=== PATIENT | male | born 2000 | race Caucasian/White ===

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

== ENCOUNTER 2020-01-20 18:17 | Emergency (ER) | payer OTHER ==
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
[2020-01-20 19:58] LABS: Amphetamine Screen,Urine Not Detected (NotDetected); Barbiturate Screen,Urine Not Detected (NotDetected); Benzodiazepines Screen,Urine Detected (NotDetected); Cocaine Screen,Urine Not Detected (NotDetected); Methadone Screen, Urine Not Detected (NotDetected); Opiate Screen,Urine Not Detected (NotDetected); Oxycodone Screen, Urine Not Detected (NotDetected); Phencyclidine Screen,Urine Not Detected (NotDetected); Tricyclic Antidepressant,Urine Not Detected (NotDetected); Urn Cannabinoid Scrn Detected (NotDetected)
[2020-01-20 22:45] VITALS: BP 128/80; PULSE 54; RESP 18; TEMP 97.7
== END 2020-01-20 22:45 | disposition home or self-care (01) ==
LOC: EC 18:17
DX: R46.89 Other symptoms and signs involving appearance and behavior (principal); H91.90 Unspecified hearing loss, unspecified ear; F17.200 Nicotine dependence, unspecified, uncomplicated
CPT/HCPCS: 80306; 82075; 99285

== ENCOUNTER 2020-01-24 21:06 | Inpatient (IN) | payer MEDICARE, OTHER ==
[2020-01-24 22:34] LABS: Cocaine Screen,Urine Not Detected (NotDetected); Phencyclidine Screen,Urine Not Detected (NotDetected); Urn Cannabinoid Scrn Detected (NotDetected)
[2020-01-24 22:35] LABS: Amphetamine Screen,Urine Not Detected (NotDetected); Barbiturate Screen,Urine Not Detected (NotDetected); Benzodiazepines Screen,Urine Not Detected (NotDetected); Methadone Screen, Urine Not Detected (NotDetected); Opiate Screen,Urine Not Detected (NotDetected); Oxycodone Screen, Urine Not Detected (NotDetected); Tricyclic Antidepressant,Urine Not Detected (NotDetected)
[2020-01-24] MEDS ORDERED: SODIUM CHLORIDE 0.9% 1,000 ML IV STA (22:58)
--- NOTE | 2020-01-24 23:28 | ED ---
Altered Mental Status HPI - General Chief Complaint: Psychiatric Symptoms Stated Complaint: EPS Eval Time Seen by Provider: 01/24/20 22:31 Source: patient, RN notes reviewed, old records reviewed Mode of arrival: ambulatory Limitations: language barrier - History of Present Illness Initial Comments: This is a patient is 19 years old poor strain secondary to underlying being deaf O patient is able to make conversation and respond, patient has some psychiatric illness psychiatric history and has had a for admission for prior psychiatric evaluation. Concern by family today the patient may have some underlying neurological condition causing some of his problems this patient to be escalating. Patient isn't doing some self abuse does have some swelling to his head, recent evaluation in the ER where he was discharged MD Complaint: altered mental status, confusion, other (Inappropriate behavior) -: unknown Severity: moderate Consistency of Symptoms: waxing and waning, getting worse Context: drug abuse, history of similar presentation Associated Symptoms: denies other symptoms - Related Data Home Medications Medication Instructions Recorded Confirmed No Known Home Medications 08/09/18 01/20/20 Allergies Allergy/AdvReac Type Severity Reaction Status Date / Time No Known Allergies Allergy Verified 01/24/20 21:14 Review of Systems ROS Statement: Those systems with pertinent positive or pertinent negative responses have been documented in the HPI. ROS Other: All systems not noted in ROS Statement are negative. Past Medical History Additional Past Medical History / Comment(s): deaf History of Any Multi-Drug Resistant Organisms: None Reported Past Surgical History: No Surgical Hx Reported Past Anesthesia/Blood Transfusion Reactions: No Reported Reaction Past Psychological History: Depression Smoking Status: Current every day smoker Past Alcohol Use History: None Reported Past Drug Use History: Marijuana - Past Family History Mother Family Medical History: Hearing Disorder / Deafness Father Additional Family Medical History / Comment(s): used marijuana General Exam Limitations: language barrier General appearance: alert, in no apparent distress Head exam: Present: normocephalic, normal inspection. Absent: atraumatic (Patient does have hematoma to forehead) Eye exam: Present: normal appearance, PERRL, EOMI. Absent: scleral icterus, conjunctival injection, periorbital swelling ENT exam: Present: normal exam, mucous membranes moist Neck exam: Present: normal inspection. Absent: tenderness, meningismus, lymphadenopathy Respiratory exam: Present: normal lung sounds bilaterally. Absent: respiratory distress, wheezes, rales, rhonchi, stridor Cardiovascular Exam: Present: regular rate, normal rhythm, normal heart sounds. Absent: systolic murmur, diastolic murmur, rubs, gallop, clicks GI/Abdominal exam: Present: soft, normal bowel sounds. Absent: distended, tenderness, guarding, rebound, rigid Extremities exam: Present: normal inspection, full ROM, normal capillary refill. Absent: tenderness, pedal edema, joint swelling, calf tenderness Back exam: Present: normal inspection Neurological exam: Present: alert, oriented X3, CN II-XII intact Psychiatric exam: Present: normal affect, normal mood Skin exam: Present: warm, dry, intact, normal color. Absent: rash Course Vital Signs 01/24/20 21:06 Temperature 98.4 F Pulse Rate 84 Respiratory 16 Rate Blood Pressure 132/87 O2 Sat by Pulse 100 Oximetry - Reevaluation(s) Reevaluation #1: 01/25/20 00:32 Medical record is reviewed Reevaluation #2: 01/25/20 00:32 Prior ER visit and psychiatric evaluations are reviewed Reevaluation #3: 01/25/20 00:32 Patient appears to be appropriate here in the ER, family informed of results Medical Decision Making - Medical Decision Making 19-year-old male be evaluated, patient be admitted for underlying psychiatric versus neurologic condition causing abnormal behavior. - Lab Data Result diagrams: 01/24/20 23:23 01/24/20 23:23 Lab Results 01/24/20 01/24/20 01/24/20 Range/Units 22:10 23:23 23:23 WBC 14.8 H (4.0-11.0) k/uL RBC 5.38 (4.30-5.90) m/uL Hgb 15.0 (13.0-17.5) gm/dL Hct 45.4 (39.0-53.0) % MCV 84.3 (80.0-100.0) fL MCH 27.9 (25.0-35.0) pg MCHC 33.1 (31.0-37.0) g/dL RDW 12.7 (11.5-15.5) % Plt Count 218 (150-450) k/uL Neutrophils % 79 % Lymphocytes % 11 % Monocytes % 7 % Eosinophils % 1 % Basophils % 0 % Neutrophils # 11.8 H (1.3-7.7) k/uL Lymphocytes # 1.7 (1.0-4.8) k/uL Monocytes # 1.1 H (0-1.0) k/uL Eosinophils # 0.1 (0-0.7) k/uL Basophils # 0.1 (0-0.2) k/uL Sodium 139 (137-145) mmol/L Potassium 4.4 (3.5-5.1) mmol/L Chloride 105 (98-107) mmol/L Carbon Dioxide 29 (22-30) mmol/L Anion Gap 5 mmol/L BUN 17 (9-20) mg/dL Creatinine 1.09 (0.66-1.25) mg/dL Est GFR (CKD-EPI)AfAm >90 (>60 ml/min/1.73 sqM) Est GFR (CKD-EPI)NonAf >90 (>60 ml/min/1.73 sqM) Glucose 94 (74-99) mg/dL Calcium 10.2 (8.4-10.2) mg/dL Phosphorus 3.5 (2.5-4.5) mg/dL Magnesium 2.1 (1.6-2.3) mg/dL Total Bilirubin 0.7 (0.2-1.3) mg/dL AST 38 (17-59) U/L ALT 17 (4-49) U/L Alkaline Phosphatase 77 (38-126) U/L Creatine Kinase 440 H (55-170) U/L Troponin I (0.000-0.034) ng/mL Total Protein 7.3 (6.3-8.2) g/dL Albumin 5.0 (3.5-5.0) g/dL TSH 0.674 (0.465-4.680) mIU/L Urine Opiates Screen Not Detected (NotDetected) Ur Oxycodone Screen Not Detected (NotDetected) Urine Methadone Screen Not Detected (NotDetected) Ur Propoxyphene Screen Not Detected (NotDetected) Ur Barbiturates Screen Not Detected (NotDetected) U Tricyclic Antidepress Not Detected (NotDetected) Ur Phencyclidine Scrn Not Detected (NotDetected) Ur Amphetamines Screen Not Detected (NotDetected) U Methamphetamines Scrn Not Detected (NotDetected) U Benzodiazepines Scrn Not Detected (NotDetected) Urine Cocaine Screen Not Detected (NotDetected) U Marijuana (THC) Screen Detected H (NotDetected) 01/24/20 Range/Units 23:23 WBC (4.0-11.0) k/uL RBC (4.30-5.90) m/uL Hgb (13.0-17.5) gm/dL Hct (39.0-53.0) % MCV (80.0-100.0) fL MCH (25.0-35.0) pg MCHC (31.0-37.0) g/dL RDW (11.5-15.5) % Plt Count (150-450) k/uL Neutrophils % % Lymphocytes % % Monocytes % % Eosinophils % % Basophils % % Neutrophils # (1.3-7.7) k/uL Lymphocytes # (1.0-4.8) k/uL Monocytes # (0-1.0) k/uL Eosinophils # (0-0.7) k/uL Basophils # (0-0.2) k/uL Sodium (137-145) mmol/L Potassium (3.5-5.1) mmol/L Chloride (98-107) mmol/L Carbon Dioxide (22-30) mmol/L Anion Gap mmol/L BUN (9-20) mg/dL Creatinine (0.66-1.25) mg/dL Est GFR (CKD-EPI)AfAm (>60 ml/min/1.73 sqM) Est GFR (CKD-EPI)NonAf (>60 ml/min/1.73 sqM) Glucose (74-99) mg/dL Calcium (8.4-10.2) mg/dL Phosphorus (2.5-4.5) mg/dL Magnesium (1.6-2.3) mg/dL Total Bilirubin (0.2-1.3) mg/dL AST (17-59) U/L ALT (4-49) U/L Alkaline Phosphatase (38-126) U/L Creatine Kinase (55-170) U/L Troponin I <0.012 (0.000-0.034) ng/mL Total Protein (6.3-8.2) g/dL Albumin (3.5-5.0) g/dL TSH (0.465-4.680) mIU/L Urine Opiates Screen (NotDetected) Ur Oxycodone Screen (NotDetected) Urine Methadone Screen (NotDetected) Ur Propoxyphene Screen (NotDetected) Ur Barbiturates Screen (NotDetected) U Tricyclic Antidepress (NotDetected) Ur Phencyclidine Scrn (NotDetected) Ur Amphetamines Screen (NotDetected) U Methamphetamines Scrn (NotDetected) U Benzodiazepines Scrn (NotDetected) Urine Cocaine Screen (NotDetected) U Marijuana (THC) Screen (NotDetected) - Radiology Data Radiology results: report reviewed (CT brain is negative for acute disease), image reviewed Disposition Clinical Impression: Acute anxiety, Aggressive behavior, Adjustment disorder of adolescence, Altered mental status Disposition: ADMITTED IP TO THIS HOSP Condition: Fair Is patient prescribed a controlled substance at d/c from ED?: No Referrals: Hermila Palacios MD [Primary Care Provider] - 1-2 days
[2020-01-24 23:32] LABS: Basophils # (A) 0.1 k/uL (0-0.2); Basophils % (A) 0 %; Eosinophils # (A) 0.1 k/uL (0-0.7); Eosinophils % (A) 1 %; HCT 45.4 % (39.0-53.0); Lymphocytes # (A) 1.7 k/uL (1.0-4.8); Lymphocytes % (A) 11 %; MCH 27.9 pg (25.0-35.0); MCHC 33.1 g/dL (31.0-37.0); MCV 84.3 fL (80.0-100.0); Mean Platelet Volume 8.6; Monocytes # (A) 1.1 k/uL (0-1.0); Monocytes % (A) 7 %; Neutrophils # (A) 11.8 k/uL (1.3-7.7); Neutrophils % (A) 79 %; Platelet Count 218 k/uL (150-450); RBC 5.38 m/uL (4.30-5.90); RDW 12.7 % (11.5-15.5); WBC 14.8 k/uL (4.0-11.0)
[2020-01-24 23:40] LABS: ALT 17 U/L (4-49); AST 38 U/L (17-59); African American GFR (CKD) >90 (>60 ml/min/1.73 sqM); Alkaline Phosphatase 77 U/L (38-126); Anion Gap 5 mmol/L; Blood Urea Nitrogen 17 mg/dL (9-20); Calcium 10.2 mg/dL (8.4-10.2); Carbon Dioxide 29 mmol/L (22-30); Chloride 105 mmol/L (98-107); Creatine Kinase 440 U/L (55-170); Glucose 94 mg/dL (74-99); Magnesium 2.1 mg/dL (1.6-2.3); Non-African American GFR(CKD) >90 (>60 ml/min/1.73 sqM); Phosphorus 3.5 mg/dL (2.5-4.5); Potassium 4.4 mmol/L (3.5-5.1); Sodium 139 mmol/L (137-145); Total Bilirubin 0.7 mg/dL (0.2-1.3); Total Protein 7.3 g/dL (6.3-8.2)
--- NOTE | 2020-01-25 00:17 | CT ---
EXAMINATION TYPE: CT brain wo con DATE OF EXAM: 01/25/2020 COMPARISON: None HISTORY: Headache CT DLP: 1099.4 mGycm Automated exposure control for dose reduction was used. Ventricles have normal size. There is no mass effect nor midline shift. There is no evidence of intra cranial hemorrhage. Calvarium is intact. There is soft tissue swelling over the right temporal bone w ith probably subcutaneous hematoma. Skull base is intact. IMPRESSION: Normal CT scan of the brain. Subcutaneous hematoma and soft tissue swelling over the right temporal bone.
[2020-01-25] MEDS ORDERED: LORazepam 2 MG/ML INJ IV STA (00:33)
[2020-01-25] MEDS ORDERED: LORazepam 2 MG/ML INJ IV PRN (00:33)
[2020-01-25] MEDS ORDERED: SODIUM CHLORIDE 0.9% 1,000 ML IV ONE (00:33)
[2020-01-25 03:06] LABS: Appearance,Urine Cloudy (Clear); Bilirubin,Urine Negative (Negative); Blood,Urine Negative (Negative); Calcium Oxalate Crystals,Urine Many /hpf; Color,Urine Yellow; Glucose,Urine (UA) Negative (Negative); Ketones,Urine Negative (Negative); Leukocyte Esterase,Urine Negative (Negative); Mucus,Urine Many /hpf; Nitrite,Urine Negative (Negative); Protein,Urine Trace (Negative); RBC,Urine <1 /hpf (0-5); Specific Gravity,Urine 1.033 (1.001-1.035); Urobilinogen,Urine <2.0 mg/dL (<2.0); WBC,Urine 2 /hpf (0-5)
[2020-01-25] MEDS ORDERED: LORazepam 1 MG TAB PO PRN (10:31)
--- NOTE | 2020-01-25 10:57 | P.HPIM ---
History of Present Illness Patient is a very pleasant 19-year-old the male who is deaf was sent in for second evaluation as patient was having some behavioral issues. Patient the was noted to have altered mental status to but when I valid the patient patient is alert oriented 3. Patient also admits to anxiety. Patient denied any fever chills patient had nausea vomiting. All the lab workup is essentially within normal limits and patient had a subacute cutaneous hematoma on the CT. And the soft tissue swelling in the right temporal lobe. Patient did have leukocytosis, but denied any fever chills denied any dysuria denied any cough along with a daniel st x-ray to rule out any pneumonia although E patient doesn't have any pneumonia patient doesn't have any UTI. Patient admitted to hitting his head to the wall because of which he has this swelling and hematoma of the head. Did use marijuana yesterday and does use marijuana on regular basis. Review of Systems REVIEW OF SYSTEMS: CONSTITUTIONAL: No fever, no malaise, no fatigue. HEENT: No recent visual problems or hearing problems. Denied any sore throat. CARDIOVASCULAR: No chest pain, orthopnea, PND, no palpitations, no syncope. PULMONARY: No shortness of breath, no cough, no hemoptysis. GASTROINTESTINAL: No diarrhea, no nausea, no vomiting, no abdominal pain. NEUROLOGICAL: No headaches, no weakness, no numbness. HEMATOLOGICAL: Denies any bleeding or petechiae. GENITOURINARY: Denies any burning micturition, frequency, or urgency. MUSCULOSKELETAL/RHEUMATOLOGICAL: Denies any joint pain, swelling, or any muscle pain. ENDOCRINE: Denies any polyuria or polydipsia. The rest of the 14-point review of systems is negative. Past Medical History Additional Past Medical History / Comment(s): deaf History of Any Multi-Drug Resistant Organisms: None Reported Past Surgical History: No Surgical Hx Reported Past Anesthesia/Blood Transfusion Reactions: No Reported Reaction Past Psychological History: Depression Smoking Status: Current every day smoker Past Alcohol Use History: None Reported Past Drug Use History: Marijuana - Past Family History Mother Family Medical History: Hearing Disorder / Deafness Father Additional Family Medical History / Comment(s): used marijuana Medications and Allergies Home Medications Medication Instructions Recorded Confirmed Type No Known Home Medications 08/09/18 01/25/20 History Allergies Allergy/AdvReac Type Severity Reaction Status Date / Time No Known Allergies Allergy Verified 01/25/20 07:37 Physical Exam Vitals: Vital Signs Temp Pulse Resp BP Pulse Ox 01/25/20 06:30 98.6 F 91 18 126/88 100 01/25/20 03:00 80 18 130/79 97 01/24/20 21:06 98.4 F 84 16 132/87 100 Intake and Output 01/24/20 01/25/20 01/25/20 22:59 06:59 14:59 Other: Weight 65.317 kg PHYSICAL EXAMINATION: GENERAL: The patient is alert and oriented x3, not in any acute distress. Well developed, well nourished. HEENT: Pupils are round and equally reacting to light. EOMI. No scleral icterus. No conjunctival pallor. Normocephalic, atraumatic. No pharyngeal erythema. No thyromegaly. CARDIOVASCULAR: S1 and S2 present. No murmurs, rubs, or gallops. PULMONARY: Chest is clear to auscultation, no wheezing or crackles. ABDOMEN: Soft, nontender, nondistended, normoactive bowel sounds. No palpable organomegaly. MUSCULOSKELETAL: No joint swelling or deformity. EXTREMITIES: No cyanosis, clubbing, or pedal edema. NEUROLOGICAL: Gross neurological examination did not reveal any focal deficits. SKIN: No rashes. Results CBC & Chem 7: 01/24/20 23:23 01/24/20 23:23 Labs: Abnormal Lab Results - Last 24 Hours (Table) 01/24/20 01/24/20 01/24/20 Range/Units 22:10 22:10 23:23 WBC 14.8 H (4.0-11.0) k/uL Neutrophils # 11.8 H (1.3-7.7) k/uL Monocytes # 1.1 H (0-1.0) k/uL Creatine Kinase (55-170) U/L Urine Protein Trace H (Negative) Calcium Oxalate Crystal Many H (None) /hpf Urine Mucus Many H (None) /hpf U Marijuana (THC) Screen Detected H (NotDetected) 01/24/20 Range/Units 23:23 WBC (4.0-11.0) k/uL Neutrophils # (1.3-7.7) k/uL Monocytes # (0-1.0) k/uL Creatine Kinase 440 H (55-170) U/L Urine Protein (Negative) Calcium Oxalate Crystal (None) /hpf Urine Mucus (None) /hpf U Marijuana (THC) Screen (NotDetected) Assessment and Plan Plan: -Behavioral issues, anxiety/agitation: Patient will be evaluated by psychiatric the cleared patient will be discharged if they believe she need to be admitted to psychiatric floor then patient will be admitted to psychiatric floor. Patient is medically stable to be discharged at this time. -leukocytosis reactive without any evidence of infection -Marijuana use Patient will be discharged today if cleared by psychiatric.
--- NOTE | 2020-01-25 10:58 | P.DS ---
Providers Date of admission: 01/25/20 00:34 Attending physician: Evangelista Gilman Consults: 01/25/20 00:33 Consult Physician Routine Consulting Provider: Sixto Ceballos Reason/Comments: ams Do you want consulting provider notified?: Yes Primary care physician: Philip Cleaning [facility] Course: Please of her history of present illness for further details Patient Condition at Discharge: Fair Plan - Discharge Summary New Discharge Prescriptions: No Action No Known Home Medications Discharge Medication List No Known Home Medications 08/09/18 [History] Follow up Appointment(s)/Referral(s): Hermila Palacios MD [Primary Care Provider] - 3 Days Discharge Disposition: HOME SELF-CARE
--- NOTE | 2020-01-25 11:10 | XR ---
EXAMINATION TYPE: XR chest 2V DATE OF EXAM: 01/25/2020 COMPARISON: NONE HISTORY: Cough rule out pneumonia. TECHNIQUE: Frontal and lateral views of the chest are obtained. FINDINGS: There is no focal air space opacity, pleural effusion, or pneumothorax seen. The cardiac silhouette size is within normal limits. The osseous structures are intact. IMPRESSION: No suspicious acute infiltrate is present.
[2020-01-25 15:41] VITALS: RESP 16
--- NOTE | 2020-01-25 17:27 | CONS ---
CONSULTATION REASON FOR CONSULTATION: Altered mental status. HISTORY OF PRESENT ILLNESS: The patient is a 19-year-old single male who was born deaf. He presented to the emergency room for behavior issues. They stated that the patient has an underlying neurological condition causing him to hit his head against the wall and that he has been doing this self-mutilation or self-abusing behavior like he said, "I am doing this half of my life." I talked with the patient, as he was reading lips. However, I was writing most of the questions on a piece of paper and he was able to answer most of the questions. He stated that he has been living with his grandparent and he denied any suicidal or homicidal ideation. He denied any psychotic feature. He stated that he does not get angry, but "I get upset sometimes." He stated that he has been smoking marijuana on a daily basis since age 11 or 13. In addition, he has been drinking beer since age 11. He stated that he was drinking 1 or 2 beers, but for the last couple of years he has been drinking up to a dozen beers every other day. The patient stated that he used to do crack cocaine and Xanax from age 14 until 16. Currently he is in 12th grade at [employer]. He has been in special ed all his life. MEDICAL HISTORY: 1. Hearing impairment. 2. CT of the brain shows subacute cutaneous hematoma, most probably because he was hitting his head against the wall. Also it shows soft tissue swelling on the right temporal lobe. There is leukocytosis. Urine drug screen positive for cannabis. ALLERGIES: There is NO KNOWN DRUG ALLERGY. HOME MEDICATION: No home medication. His vital signs are temperature 98.6, pulse 84, respirations 16, blood pressure 132/87. SUBSTANCE ABUSE HISTORY: As above. BRIEF SOCIAL HISTORY: The patient is very poor historian, so I did not get any information other than he was born deaf and he currently is living with his grandparent and going to [employer] and he is in the 12th grade. MENTAL STATUS EXAMINATION: The patient appears his stated age. He did bleach his hair. He is hard of hearing but was able to read most of the questions written on the paper and answered them. He did attempt to be cooperative. He appears to have fair hygiene and fair grooming. The patient was lying in bed without any agitation and he attempted to be cooperative. His speech was nonspontaneous. There was some dysarthria. Most of his speech is one- or two-word answers. He denied any suicidal or homicidal ideation, intent or plan. He denied having any hallucinations or delusional thinking. There is poverty of his thought content and he is very concrete. His insight and judgment are fair. IMPRESSION: 1. Mood disorder not otherwise specified. 2. Intellectual disability. 3. Polysubstance use disorder, alcohol and cannabis. PLAN: At this time the patient does not meet criteria for inpatient psychiatric admission. I do recommend referring him to [facility] for behavior modification for his behavior and self- mutilation behavior. The patient was counseled to abstain from alcohol, as this does increase his low frustration tolerance and make him more disinhibited. Psychiatry will sign off at this point. SUSANNA / STEPHANIE: [id number] /
[2020-01-25 18:08] VITALS: BP 144/73; PULSE 64; TEMP 98.5
== END 2020-01-25 17:32 | DRG 885 ==
LOC: EC 21:06 → 6NMEDSUR 01-25 00:34
PROVIDERS: ADMIT Hospitalist; ATTEND Hospitalist
DX: F39 Unspecified mood [affective] disorder (principal); F79 Unspecified intellectual disabilities; F43.22 Adjustment disorder with anxiety; H91.90 Unspecified hearing loss, unspecified ear; F32.9 Major depressive disorder, single episode, unspecified; F17.200 Nicotine dependence, unspecified, uncomplicated; Z83.52 Family history of ear disorders; S00.83XA Contusion of other part of head, initial encounter; D72.829 Elevated white blood cell count, unspecified; F12.90 Cannabis use, unspecified, uncomplicated; W22.01XA Walked into wall, initial encounter; Z91.5 Personal history of self-harm
CPT/HCPCS: 36415; 70450; 71046; 80053; 80306; 81001; 82075; 82550; 83735; 84100; 84443; 84484; 85025; 96361; 96374; 99285

== ENCOUNTER 2020-01-25 17:30 | Inpatient (IN) | payer MEDICARE, MEDICAID ==
[2020-01-25] MEDS ORDERED: MAGNESIUM HYDROXIDE 2,400 MG/10 ML CUP PO PRN (17:41)
[2020-01-25] MEDS ORDERED: MAG HYDROX/AL HYDROX/SIMETH 30 ML CUP PO PRN (17:41)
[2020-01-25] MEDS: LORazepam 1 MG TAB PO PRN (19:13)
[2020-01-25] MEDS: ACETAMINOPHEN TAB 325 MG TAB PO PRN (21:00)
[2020-01-26 08:17] LABS: Basophils % (A) 0 %; Eosinophils # (A) 0.2 k/uL (0-0.7); Eosinophils % (A) 2 %; HCT 45.3 % (39.0-53.0); HGB 14.3 gm/dL (13.0-17.5); Lymphocytes # (A) 2.9 k/uL (1.0-4.8); Lymphocytes % (A) 32 %; MCH 27.5 pg (25.0-35.0); MCHC 31.7 g/dL (31.0-37.0); MCV 86.8 fL (80.0-100.0); Mean Platelet Volume 8.4; Monocytes # (A) 0.8 k/uL (0-1.0); Monocytes % (A) 9 %; Neutrophils # (A) 4.8 k/uL (1.3-7.7); Neutrophils % (A) 55 %; Platelet Count 206 k/uL (150-450); RBC 5.21 m/uL (4.30-5.90); RDW 12.9 % (11.5-15.5); WBC 8.9 k/uL (4.0-11.0)
[2020-01-26] MEDS: NICOTINE 14MG/24HR PATCH TRANSDERM SCH (08:28)
[2020-01-26 08:42] LABS: ALT 17 U/L (4-49); AST 31 U/L (17-59); African American GFR (CKD) >90 (>60 ml/min/1.73 sqM); Albumin 4.6 g/dL (3.5-5.0); Alkaline Phosphatase 67 U/L (38-126); Anion Gap 8 mmol/L; Blood Urea Nitrogen 13 mg/dL (9-20); Calcium 9.8 mg/dL (8.4-10.2); Carbon Dioxide 28 mmol/L (22-30); Chloride 107 mmol/L (98-107); Cholesterol 109 mg/dL (<200); Glucose 96 mg/dL (74-99); HDL Cholesterol 50 mg/dL (40-60); LDL Cholesterol,Calculated 44 mg/dL (0-99); Non-African American GFR(CKD) >90 (>60 ml/min/1.73 sqM); Potassium 4.9 mmol/L (3.5-5.1); Sodium 143 mmol/L (137-145); Total Bilirubin 0.7 mg/dL (0.2-1.3); Total Protein 6.9 g/dL (6.3-8.2); Triglycerides 73 mg/dL (<150)
[2020-01-26] MEDS: LORazepam 1 MG TAB PO PRN ×3 (09:55→23:41)
[2020-01-26] MEDS: SERTRALINE 25 MG TAB PO SCH (12:08)
[2020-01-26] MEDS: ARIPiprazole 2 MG TAB PO SCH (12:26)
[2020-01-26 14:21] LABS: Hemoglobin A1C 5.1 % (4.0-6.0)
--- NOTE | 2020-01-26 15:00 | P.HPIM ---
History of Present Illness 19-year-old pleasant male was admitted to my service yesterday for behavioral issues after medically cleared patient was admitted to psychiatric floor and patient is being treated for anxiety. Patient is clinically doing well denied any symptoms of fever chills nausea vomiting abdominal pain dysuria. Patient does have hearing problems and there had an ear surgery when he as a kid. Review of Systems REVIEW OF SYSTEMS: CONSTITUTIONAL: No fever, no malaise, no fatigue. HEENT: No recent visual problems or hearing problems. Denied any sore throat. CARDIOVASCULAR: No chest pain, orthopnea, PND, no palpitations, no syncope. PULMONARY: No shortness of breath, no cough, no hemoptysis. GASTROINTESTINAL: No diarrhea, no nausea, no vomiting, no abdominal pain. NEUROLOGICAL: No headaches, no weakness, no numbness. HEMATOLOGICAL: Denies any bleeding or petechiae. GENITOURINARY: Denies any burning micturition, frequency, or urgency. MUSCULOSKELETAL/RHEUMATOLOGICAL: Denies any joint pain, swelling, or any muscle pain. ENDOCRINE: Denies any polyuria or polydipsia. The rest of the 14-point review of systems is negative. 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(s): Deaf Syringomyelia History of Any Multi-Drug Resistant Organisms: None Reported Past Surgical History: No Surgical Hx Reported Additional Past Surgical History / Comment(s): testicular surgery Past Anesthesia/Blood Transfusion Reactions: No Reported Reaction Past Psychological History: No Psychological Hx Reported Additional Psychological History / Comment(s): Pt denies any depression or mental health problems. He is independent. He lives with his grandparents. Smoking Status: Current every day smoker Past Alcohol Use History: None Reported Past Drug Use History: Marijuana Additional Drug Use History / Comment(s): Pt denies history of heroin and methamphetamine use. - Past Family History Mother Family Medical History: Hearing Disorder / Deafness Father Additional Family Medical History / Comment(s): used marijuana Medications and Allergies Home Medications Medication Instructions Recorded Confirmed Type No Known Home Medications 08/09/18 01/25/20 History Allergies Allergy/AdvReac Type Severity Reaction Status Date / Time No Known Allergies Allergy Verified 01/25/20 19:28 Physical Exam Vitals: Vital Signs Temp Pulse Pulse Resp BP BP Pulse Ox 01/26/20 09:53 98.2 F 65 16 127/87 100 01/25/20 19:14 97.5 F L 56 L 20 126/74 100 Intake and Output 01/25/20 01/26/20 01/26/20 22:59 06:59 14:59 Other: Weight 50.887 kg PHYSICAL EXAMINATION: GENERAL: The patient is alert and oriented x3, not in any acute distress. Well developed, well nourished. HEENT: Pupils are round and equally reacting to light. EOMI. No scleral icterus. No conjunctival pallor. Normocephalic, atraumatic. No pharyngeal erythema. No thyromegaly. CARDIOVASCULAR: S1 and S2 present. No murmurs, rubs, or gallops. PULMONARY: Chest is clear to auscultation, no wheezing or crackles. ABDOMEN: Soft, nontender, nondistended, normoactive bowel sounds. No palpable organomegaly. MUSCULOSKELETAL: No joint swelling or deformity. EXTREMITIES: No cyanosis, clubbing, or pedal edema. NEUROLOGICAL: Gross neurological examination did not reveal any focal deficits. SKIN: No rashes. Results CBC & Chem 7: 01/26/20 07:43 01/26/20 07:43 Assessment and Plan Plan: Assessment and Plan Plan: -Behavioral issues, anxiety/agitation: Management as per primary service -leukocytosis reactive without any evidence of infection were no further intervention is necessary -Marijuana use: Counseling was provided
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
[2020-01-27] MEDS: SERTRALINE 25 MG TAB PO SCH (09:13)
[2020-01-27] MEDS: NICOTINE 14MG/24HR PATCH TRANSDERM SCH (09:13)
[2020-01-27] MEDS: ARIPiprazole 2 MG TAB PO SCH (09:13)
[2020-01-27 13:11] VITALS: BMI 16.4
--- NOTE | 2020-01-27 14:01 | P.PN ---
Progress Note - Text Progress Note Date: 01/27/20 Subjective: Patient was seen today as a cross coverage for Dr. Ramirez. The patient was evaluated, chart reviewed, case discussed with the treatment team. Patient reports good sleep last night, and appetite was reported as "fair ". Patient has has been going to some groups and other unit activities. The patient is compliant with his medications and denies any adverse reactions. And was a started on Zoloft for depression, and Abilify for mood stabilization and psychotic symptoms. He reports tolerating his medication very well and he denies feeling depressed, hopeless, or suicidal. Denies any hallucinations, paranoid ideation, or delusions. Patient was very fixated on discharge and submitted 72 hour notice for discharge yesterday. Patient was educated to discuss discharge plan with his primary team with involvement of his family. All communication with the patient by writing or sometimes he is able to read lips. Objective: Vitals has been reviewed. MENTAL STATUS EVALUATION: Appearance: Appears stated age, fairly groomed, average body built, and no specific features. Gait/ posture: Steady gait, normal arm swinging, no abnormal movements, with relaxed posture. Attitude and Behavior: Superficially cooperative, guarded in answering questions about his symptoms, intermittent eye contact during course of interview. Motor Activity: Normal psychomotor activity. Speech: Not spontaneous. Stuttering Language: Not able to assess Mood: "Fine" Affect: Restricted. Thought process: Slow, probably due to communication problem and may be due to intellectual limitation Association: Not able to assess. Thought content: Denies delusions, denies current suicidal thoughts, denies homicidal thoughts, denies intentions, or plans. Perception: Denies any hallucinations, but as pair family report patient responding to nonexisting people and talking to himself. Alertness: No impairment. Orientation: No major impairment Insight regarding psychiatric condition: Fair Judgment regarding daily activities and social situation: Fair Impulse control: Fair Assessment: Major depressive disorder, recurrent, severe with psychotic features. Rule out intellectual disability. Rule out cannabis use disorder. Rule out alcohol use disorder TREATMENT PLAN/RECOMMENDATIONS: Medical Decision making: The patient presented with suicidal ideation and history of self-harm as per family report. The patient at high risk to hurt himself if he is not in the inpatient setting. The patient's psychiatric symptoms are not stable and he needs further management of psychiatric medications and further planning for discharge. Therefore, inpatient level of care is needed. Continue the patient inpatient for safety. Continue the patient under 15 minutes safe check for safety. Continue treatment of for depression and psychotic symptoms. Psych education regarding his diagnosis, and treatment option. The patient will also be provided with individual therapy, group therapy, substance abuse counseling, gain insight, and coping skills. Consider medical consultation if any acute medical issue arise. Medications: Zoloft 25 mg daily for depression and anxiety symptoms. Abilify 2 mg daily to augment antidepressant and psychotic symptoms. Discharge patient to OUTPATIENT services upon a stabilization
[2020-01-27] MEDS: ACETAMINOPHEN TAB 325 MG TAB PO PRN (16:35)
[2020-01-27] MEDS: LORazepam 1 MG TAB PO PRN (16:35)
[2020-01-28] MEDS: LORazepam 1 MG TAB PO PRN ×2 (02:21→23:23)
[2020-01-28] MEDS: NICOTINE 14MG/24HR PATCH TRANSDERM SCH (08:43)
[2020-01-28] MEDS: SERTRALINE 25 MG TAB PO SCH (08:44)
[2020-01-28] MEDS: ARIPiprazole 2 MG TAB PO SCH (08:45)
--- NOTE | 2020-01-28 09:42 | P.PN ---
Progress Note - Text Progress Note Date: 01/28/20 Interval History: Patient was seen wandering the hallways and was directable and agreeable to speak with publicity writer in the office. Patient reports that he is feeling anxious. He reports a strong desire to be discharged. He is not endorsing any significant symptoms of depression at this time. When exploring reasons for his admission, patient is unable to provide any significant detail or reason for his erratic behavior. When discussing his self harming behavior, patient stated that he does not remember why he did that other than feeling frustrated. He does endorse a significant history of auditory hallucinations which she describes as "hearing everything in the whole world." He does express that he is able to read thoughts at times and that others are able to read his mind. He also endorses significant paranoia. He denies any visual hallucinations.. At this time patient denies any suicidal or homical ideations, intent or plan. Patient denies any auditory, visual hallucinations and denies any paranoia or delusions. Patient reports side effects of his Abilify and Zoloft. He states that he is feeling increasingly anxious and has some "restlessness and jaw movements" from this medication combination. He has otherwise been adherent. Mental Status Exam: General Appearance: Patient appears to be stated age is alert, directable, and cooperative. Patient is wearing a hearing aid. Behavior: Patient is seated without any agitated behavior. Psychomotor activity slightly elevated. Speech: Patient's speech is fluent and nonpressured. Patient speech is slightly slurred due to hearing disability. Mood/Affect: Mood is described as anxious. Affect is somewhat irritable. Suicidality/Homicidality: Patient denies having any suicidal or homicidal ideation intent or plan. Perceptions: Patient endorses auditory hallucinations. He denies any visual hallucinations. Though content/process: Delusions of paranoia, thought broadcasting, and mind reading are evident. Memory and concentration: AOX3, grossly intact for the purposes of this session Judgment and insight: Poor. Assessment Major depressive disorder, recurrent, severe with psychotic features Rule out schizoaffective disorder versus schizophrenia Rule out intellectual disability Rule out cannabis use disorder Rule out alcohol use disorder Plan: -Patient continues to meet criteria for inpatient psychiatric admission for symptom stabilization and safety. Patient has filed this into hour notice for discharge after being converted to formal voluntary. We will explore we will need to review petition and certified. -Medications: Discontinue Abilify due to patient preference/side effects. Start Risperdal 0.25 mg by mouth twice a day for psychosis/mood stabilization. Consider transition to Risperdal Consta as patient is unlikely to be adherent with medications in the outpatient setting. Continue Zoloft 25 mg by mouth daily for depression and anxiety symptoms. -When necessary Ativan and Geodon for agitation/aggression. -NRT - nicotine patch -Discharge patient to outpatient services upon stabilization. -SW on board for discharge planning. Encouraged the patient to participate in milieu.
[2020-01-28] MEDS ORDERED: ZIPRASIDONE 20 MG VIAL IM PRN (11:00)
[2020-01-28] MEDS: risperiDONE 0.25 MG TAB PO SCH (20:31)
--- NOTE | 2020-01-29 09:06 | P.PN ---
Progress Note - Text Progress Note Date: 01/29/20 Interval History: Patient was seen wandering the hallways and was directable and agreeable to speak with service writer advisor in the office. Patient reports that he feels "all right." He is not reporting any significant symptoms of depression or anxiety at this time. He denies any suicidal or homicidal ideation or intention. He reports that he is sleeping well and denies any issues with his appetite. He continues to endorse auditory hallucinations. He reports that he continues to "hear the world." He says that this does not bother him as much anymore. He is not reporting any paranoia or other delusions today. In regards to his medications, he is medication adherent and is not reporting any significant side effects. He denies any restlessness from the Risperdal. Mental Status Exam: General Appearance: Patient appears to be stated age is alert, directable, and cooperative. Patient is wearing a hearing aid. Behavior: Patient is seated without any agitated behavior. Normal psychomotor activity. Speech: Patient's speech is fluent and nonpressured. Patient speech is slightly slurred due to hearing disability. Nonspontaneous. Mood/Affect: Mood is described as all right. Affect is constricted. Suicidality/Homicidality: Patient denies having any suicidal or homicidal ideation intent or plan. Perceptions: Patient endorses auditory hallucinations. He denies any visual hallucinations. Though content/process: Currently linear and logical. Memory and concentration: AOX3, grossly intact for the purposes of this session Judgment and insight: Mildly improving. Assessment Major depressive disorder, recurrent, severe with psychotic features Rule out schizoaffective disorder versus schizophrenia Rule out intellectual disability Rule out cannabis use disorder Rule out alcohol use disorder Plan: -Patient continues to meet criteria for inpatient psychiatric admission for symptom stabilization and safety. Patient has filed this into hour notice for discharge after being converted to formal voluntary. -Medications: Increase Risperdal to 0.75 mg by mouth twice a day for psychosis/mood stabilization. Continue Zoloft 25 mg by mouth daily for depression and anxiety symptoms. -When necessary Ativan and Geodon for agitation/aggression. -NRT - nicotine patch -Discharge patient with outpatient services upon stabilization. -SW on board for discharge planning. Encouraged the patient to participate in milieu.
[2020-01-29] MEDS: NICOTINE 14MG/24HR PATCH TRANSDERM SCH (09:57)
[2020-01-29] MEDS: SERTRALINE 25 MG TAB PO SCH (09:57)
[2020-01-29] MEDS: risperiDONE 0.25 MG TAB PO SCH ×2 (11:14→20:01)
[2020-01-29 14:39] VITALS: TEMP 98.4
[2020-01-30] MEDS: LORazepam 1 MG TAB PO PRN (02:39)
[2020-01-30 02:42] VITALS: BP 137/80; PULSE 72; RESP 16
[2020-01-30] MEDS: SERTRALINE 25 MG TAB PO SCH (09:45)
[2020-01-30] MEDS: NICOTINE 14MG/24HR PATCH TRANSDERM SCH (09:45)
[2020-01-30] MEDS: risperiDONE 0.25 MG TAB PO SCH (09:45)
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
== END 2020-01-30 13:35 | disposition home or self-care (01) | DRG 885 ==
LOC: 3MHU 17:34
PROVIDERS: ADMIT Psychiatry & Neurology Psychiatry; ATTEND Psychiatry & Neurology Psychiatry
DX: F33.3 Major depressive disorder, recurrent, severe with psychotic symptoms (principal); G95.0 Syringomyelia and syringobulbia; R45.851 Suicidal ideations; F79 Unspecified intellectual disabilities; D72.829 Elevated white blood cell count, unspecified; F12.90 Cannabis use, unspecified, uncomplicated; F17.200 Nicotine dependence, unspecified, uncomplicated; F41.0 Panic disorder [episodic paroxysmal anxiety]; H91.90 Unspecified hearing loss, unspecified ear; Z72.89 Other problems related to lifestyle; Z79.899 Other long term (current) drug therapy; Z91.5 Personal history of self-harm; Z71.51 Drug abuse counseling and surveillance of drug abuser; Z83.52 Family history of ear disorders
CPT/HCPCS: 80053; 80061; 83036; 84443; 85025

== ENCOUNTER 2020-03-13 19:42 | Emergency (ER) | payer MEDICARE, OTHER ==
[2020-03-13] MEDS ORDERED: risperiDONE 0.25 MG TAB PO STA (20:19)
[2020-03-13] MEDS ORDERED: SERTRALINE 25 MG TAB PO STA (20:20)
--- NOTE | 2020-03-13 20:27 | ED ---
General Adult HPI - General Chief complaint: Recheck/Abnormal Lab/Rx Stated complaint: Med refill Source: patient Mode of arrival: ambulatory Limitations: no limitations - History of Present Illness Initial comments: Patient is a 19-year-old male who presents to the emergency department with his cousin who states that he is out of his medications. The patient has a history of hearing loss or disorder. He is supposed to be on Risperdal and Zoloft for his bipolar disorder. He has been out of his medications. Cousin states that he has been attempting to call the patient's primary care physician as well as his psychiatrist however he has been unable to find someone that can get him in and refill his prescription at this time. He is concerned because the patient is demonstrating some aggressive behavior without his medications. He called the crisis hotline who recommended that the patient come into the emergency department for refill. He reports that his cousin has been stable since he started medications approximately 2 months ago. The patient also agrees that he feels better when he is on the medications. Denies any current hallucinations. Cousin does not feel that the patient is a threat to himself or others. No other alleviating, precipitating or modifying factors - Related Data Previous Rx's Medication Instructions Recorded Acetaminophen Tab [Tylenol] 650 mg PO Q4HR PRN tab 01/30/20 Nicotine 14Mg/24Hr Patch [Habitrol] 1 patch TRANSDERM DAILY #14 patch 01/30/20 Sertraline [Zoloft] 25 mg PO DAILY #30 tab 01/30/20 risperiDONE [RisperDAL] 0.75 mg PO BID 30 Days tab 01/30/20 Sertraline [Zoloft] 25 mg PO DAILY #30 tablet 03/13/20 risperiDONE [RisperDAL] 0.75 mg PO BID #180 tablet 03/13/20 Allergies Allergy/AdvReac Type Severity Reaction Status Date / Time No Known Allergies Allergy Verified 03/13/20 19:55 Review of Systems ROS Statement: Those systems with pertinent positive or pertinent negative responses have been documented in the HPI. ROS Other: All systems not noted in ROS Statement are negative. 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(s): Deaf Syringomyelia History of Any Multi-Drug Resistant Organisms: None Reported Past Surgical History: No Surgical Hx Reported Additional Past Surgical History / Comment(s): testicular surgery Past Anesthesia/Blood Transfusion Reactions: No Reported Reaction Past Psychological History: No Psychological Hx Reported Smoking Status: Current every day smoker Past Alcohol Use History: None Reported Past Drug Use History: Marijuana - Past Family History Mother Family Medical History: Hearing Disorder / Deafness Father Additional Family Medical History / Comment(s): used marijuana General Exam Limitations: no limitations Course Vital Signs 03/13/20 03/13/20 19:50 20:41 Temperature 98 F 98.5 F Pulse Rate 88 82 Respiratory 18 16 Rate Blood Pressure 122/77 125/78 O2 Sat by Pulse 99 98 Oximetry Medical Decision Making - Medical Decision Making Upon arrival patient is placed into room 29. A thorough history and physical exam was performed. The patient was given a dose of his Risperdal and Zoloft in the emergency room. I will provide the patient with a prescription for a one- month supply. They do have an anticipated appointment next week however the patient is concerned that he will run out of his medications should they have to reschedule his appointment therefore I do write him a month's supply. The patient has any new or worsening symptoms he should return to the emergency department. Patient agreed to this was discharged home in stable condition Disposition Clinical Impression: Major depressive disorder with psychotic features Disposition: HOME SELF-CARE Condition: Stable Instructions (If sedation given, give patient instructions): Medicine Refill (ED) Additional Instructions: Please follow-up with your primary care doctor. Return to the emergency room for any new or worsening symptoms Prescriptions: risperiDONE [RisperDAL] 0.75 mg PO BID #180 tablet Sertraline [Zoloft] 25 mg PO DAILY #30 tablet Is patient prescribed a controlled substance at d/c from ED?: No Referrals: None,Stated [[facility]-2 days Time of Disposition: 20:21
[2020-03-13 20:42] VITALS: BP 125/78; PULSE 82; RESP 16; TEMP 98.5
== END 2020-03-13 20:41 | disposition home or self-care (01) ==
LOC: EC 19:42
DX: Z76.0 Encounter for issue of repeat prescription (principal); F32.3 Major depressive disorder, single episode, severe with psychotic features; F17.200 Nicotine dependence, unspecified, uncomplicated
CPT/HCPCS: 99281

== ENCOUNTER 2020-04-16 19:39 | Emergency (ER) | payer MEDICARE, OTHER ==
[2020-04-16 19:46] VITALS: TEMP 98.9
[2020-04-16 20:58] LABS: Basophils # (A) 0.1 k/uL (0-0.2); Basophils % (A) 1 %; Eosinophils # (A) 0.2 k/uL (0-0.7); Eosinophils % (A) 3 %; HCT 43.9 % (39.0-53.0); HGB 14.9 gm/dL (13.0-17.5); Lymphocytes # (A) 1.6 k/uL (1.0-4.8); Lymphocytes % (A) 18 %; MCH 29.7 pg (25.0-35.0); MCV 87.3 fL (80.0-100.0); Mean Platelet Volume 7.7; Monocytes # (A) 0.5 k/uL (0-1.0); Monocytes % (A) 6 %; Neutrophils # (A) 6.2 k/uL (1.3-7.7); Neutrophils % (A) 72 %; Platelet Count 185 k/uL (150-450); RBC 5.03 m/uL (4.30-5.90); RDW 13.8 % (11.5-15.5); WBC 8.7 k/uL (4.0-11.0)
[2020-04-16 21:08] LABS: ALT 28 U/L (4-49); AST 23 U/L (17-59); African American GFR (CKD) >90 (>60 ml/min/1.73 sqM); Albumin 4.8 g/dL (3.5-5.0); Alkaline Phosphatase 59 U/L (38-126); Anion Gap 6 mmol/L; Blood Urea Nitrogen 17 mg/dL (9-20); Carbon Dioxide 31 mmol/L (22-30); Chloride 101 mmol/L (98-107); Glucose 82 mg/dL (74-99); Magnesium 1.8 mg/dL (1.6-2.3); Non-African American GFR(CKD) >90 (>60 ml/min/1.73 sqM); Phosphorus 3.9 mg/dL (2.5-4.5); Potassium 4.5 mmol/L (3.5-5.1); Sodium 138 mmol/L (137-145); Total Bilirubin 0.4 mg/dL (0.2-1.3); Total Protein 7.3 g/dL (6.3-8.2)
[2020-04-16] MEDS ORDERED: MECLIZINE 12.5 MG TAB PO STA (21:55)
--- NOTE | 2020-04-16 22:04 | CT ---
EXAMINATION TYPE: CT brain wo con DATE OF EXAM: 04/16/2020 COMPARISON: 01/25/2020 HISTORY: Dizz[place] CT DLP: 1100.4 mGycm Automated exposure control for dose reduction was used. Ventricles and sulci appear normal. There is no mass effect nor midline shift. There is no sign of in tracranial hemorrhage. Calvarium is intact. There is no evidence of cerebral edema. Skull base is int act. IMPRESSION: Negative unenhanced head CT scan. There is clearing of the right temporal scalp hematoma compared to old exam.
--- NOTE | 2020-04-16 22:58 | ED ---
General Adult HPI - General Chief complaint: Dizziness Stated complaint: Dizziness Time Seen by Provider: 04/16/20 19:53 Source: patient, RN notes reviewed, old records reviewed Mode of arrival: ambulatory Limitations: no limitations - History of Present Illness Initial comments: 19-year-old male patient to ED for dizziness feels as if the room is spinning around him. This began last night. Denies recent falls or trauma. Patient is hard of hearing. Denies headache or any other areas of pain. Denies any other complaints. Systemic: Pt denies fatigue, fever/chills, rash. Pt denies weakness, night sweats, weight loss. Neuro: Pt denies headache, visual disturbances, syncope or pre-syncope. HEENT: Pt denies ocular discharge or irritation, otalgia, rhinorrhea, pharyngitis or notable lymphadenopathy. Cardiopulmonary: Pt denies chest pain, SOB, heart palpitations, dyspnea on exertion. Abdominal/GI: Pt denies abdominal pain, n/v/d. : Pt denies dysuria, burning w/ urination, frequency/urgency. Denies new onset urinary or bowel incontinence. MSK: Pt denies myalgia, loss of strength or function in extremities. Neuro: Pt denies new onset weakness, paresthesias. - Related Data Previous Rx's Medication Instructions Recorded Acetaminophen Tab [Tylenol] 650 mg PO Q4HR PRN tab 01/30/20 Nicotine 14Mg/24Hr Patch [Habitrol] 1 patch TRANSDERM DAILY #14 patch 01/30/20 Sertraline [Zoloft] 25 mg PO DAILY #30 tab 01/30/20 risperiDONE [RisperDAL] 0.75 mg PO BID 30 Days tab 01/30/20 Sertraline [Zoloft] 25 mg PO DAILY #30 tablet 03/13/20 risperiDONE [RisperDAL] 0.75 mg PO BID #180 tablet 03/13/20 Meclizine [Antivert] 25 mg PO Q8HR PRN #20 tab 04/16/20 Allergies Allergy/AdvReac Type Severity Reaction Status Date / Time No Known Allergies Allergy Verified 04/16/20 19:46 Review of Systems ROS Statement: Those systems with pertinent positive or pertinent negative responses have been documented in the HPI. ROS Other: All systems not noted in ROS Statement are negative. 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(s): Deaf Syringomyelia History of Any Multi-Drug Resistant Organisms: None Reported Past Surgical History: No Surgical Hx Reported Additional Past Surgical History / Comment(s): testicular surgery Past Anesthesia/Blood Transfusion Reactions: No Reported Reaction Past Psychological History: No Psychological Hx Reported Smoking Status: Current every day smoker Past Alcohol Use History: None Reported Past Drug Use History: Marijuana - Past Family History Mother Family Medical History: Hearing Disorder / Deafness Father Additional Family Medical History / Comment(s): used marijuana General Exam - General Exam Comments Initial Comments: Constitutional: NAD, AOX3, Pt has pleasant affect. HEENT: NC/AT, trachea midline, neck supple, no lymphadenopathy. External ears appear normal, without discharge. TMs pale graybilaterally. Mucous membranes moist. Eyes PERRLA, EOM intact. There is no scleral icterus. No pallor noted. Cardiopulmonary: RRR, no murmurs, rubs or gallops, no JVD noted. Lungs CTAB in anterior and posterior patel. No peripheral edema. Abdominal exam: Abdomen soft and non-distended. Abdomen non-tender to palpation in all 4 quadrants. Bowel sounds active in LLQ. No hepatosplenomegaly. No ecchymosis Neuro: CN II-XII intact. No nuchal rigidity. No raccon eyes, no ramirez sign, no hemotympanum. No cervical spinal tenderness. MSK: Full active ROM in upper and lower extremities, 5/5 stregnth. Limitations: no limitations Course Vital Signs 04/16/20 19:43 Temperature 98.9 F Pulse Rate 70 Respiratory 18 Rate Blood Pressure 110/72 O2 Sat by Pulse 100 Oximetry Medical Decision Making - Medical Decision Making 19-year-old male patient to ED for evaluation of dizziness. Feels the room is spinning about him. Neurologic exam is intact. Vital signs are stable, afebrile. Abdomen unremarkable. CT brain T spines unremarkable. Symptoms resolved with Antivert. Patient presentation consistent with vertigo. Of discharge the patient follow-up and return precautions. Case discussed with Dr. Ortiz. - Lab Data Result diagrams: 04/16/20 20:40 04/16/20 20:40 Lab Results 04/16/20 04/16/20 Range/Units 20:40 20:40 WBC 8.7 (4.0-11.0) k/uL RBC 5.03 (4.30-5.90) m/uL Hgb 14.9 (13.0-17.5) gm/dL Hct 43.9 (39.0-53.0) % MCV 87.3 (80.0-100.0) fL MCH 29.7 (25.0-35.0) pg MCHC 34.0 (31.0-37.0) g/dL RDW 13.8 (11.5-15.5) % Plt Count 185 (150-450) k/uL MPV 7.7 Neutrophils % 72 % Lymphocytes % 18 % Monocytes % 6 % Eosinophils % 3 % Basophils % 1 % Neutrophils # 6.2 (1.3-7.7) k/uL Lymphocytes # 1.6 (1.0-4.8) k/uL Monocytes # 0.5 (0-1.0) k/uL Eosinophils # 0.2 (0-0.7) k/uL Basophils # 0.1 (0-0.2) k/uL Sodium 138 (137-145) mmol/L Potassium 4.5 (3.5-5.1) mmol/L Chloride 101 (98-107) mmol/L Carbon Dioxide 31 H (22-30) mmol/L Anion Gap 6 mmol/L BUN 17 (9-20) mg/dL Creatinine 0.99 (0.66-1.25) mg/dL Est GFR (CKD-EPI)AfAm >90 (>60 ml/min/1.73 sqM) Est GFR (CKD-EPI)NonAf >90 (>60 ml/min/1.73 sqM) Glucose 82 (74-99) mg/dL Calcium 10.0 (8.4-10.2) mg/dL Phosphorus 3.9 (2.5-4.5) mg/dL Magnesium 1.8 (1.6-2.3) mg/dL Total Bilirubin 0.4 (0.2-1.3) mg/dL AST 23 (17-59) U/L ALT 28 (4-49) U/L Alkaline Phosphatase 59 (38-126) U/L Total Protein 7.3 (6.3-8.2) g/dL Albumin 4.8 (3.5-5.0) g/dL - EKG Data -: EKG Interpreted by Me (and Dr. Ortiz ) EKG Comments: ventricular rate 63, ID interval 194, QRS 98, QT/QTC 392/401. Sinus rhythm with sinus arrhythmia. No significant change from prior. No concern for acute ischemia this time. Disposition Clinical Impression: Vertigo, Dizziness Disposition: HOME SELF-CARE Condition: Stable Instructions (If sedation given, give patient instructions): Dizziness (ED), Vertigo (ED) Additional Instructions: Follow up with PCP tomorrow. May use antivert as needed. Return to ED with any worsening symptoms. Prescriptions: Meclizine [Antivert] 25 mg PO Q8HR PRN #20 tab PRN Reason: Dizziness Is patient prescribed a controlled substance at d/c from ED?: No Referrals: Wing Sanches MD [Primary Care Provider] - 1-2 days
[2020-04-16 23:14] VITALS: BP 126/71; PULSE 80; RESP 16
== END 2020-04-16 23:14 | disposition home or self-care (01) ==
LOC: SUPCPDRO 19:39 → EC 19:39
DX: R42 Dizziness and giddiness (principal); H91.90 Unspecified hearing loss, unspecified ear; F17.200 Nicotine dependence, unspecified, uncomplicated
CPT/HCPCS: 36415; 70450; 80053; 83735; 84100; 85025; 93005; 99285

== ENCOUNTER 2020-05-01 02:25 | Emergency (ER) | payer MEDICARE, OTHER ==
[2020-05-01 02:33] VITALS: TEMP 98.3
[2020-05-01] MEDS ORDERED: SODIUM CHLORIDE 0.9% 1,000 ML IV STA (03:23)
--- NOTE | 2020-05-01 03:26 | ED ---
Dizziness HPI <Neville Palomino - Last Filed: 05/01/20 07:21> - General Source: patient, family, RN notes reviewed, old records reviewed Mode of arrival: ambulatory Limitations: no limitations - History of Present Illness MD Complaint: dizziness, lightheadedness, other (Medication) -: week(s) Timing: sudden onset, intermittent Description: sense of movement History of Same: Yes History of Trauma: Yes Severity: mild Improves With: nothing Worsens With: nothing Associated Symptoms: denies other symptoms <Neville Ortiz - Last Filed: 05/01/20 22:18> - General Chief Complaint: Dizziness Stated Complaint: Dizziness, not feeling well Time Seen by Provider: 05/01/20 02:53 - History of Present Illness Initial Comments: This is a 19-year-old male who presents today for evaluation of dizziness dizziness lightheadedness is been an issue for him for a couple weeks now. A grandpa who is Seat Who is at bedside states patient 49 more anxious than normal. Patient himself denies any homicidal or suicidal does admit to recent medication change (Nevlile Ortiz) - Related Data Previous Rx's Medication Instructions Recorded Acetaminophen Tab [Tylenol] 650 mg PO Q4HR PRN tab 01/30/20 Nicotine 14Mg/24Hr Patch [Habitrol] 1 patch TRANSDERM DAILY #14 patch 01/30/20 Sertraline [Zoloft] 25 mg PO DAILY #30 tab 01/30/20 risperiDONE [RisperDAL] 0.75 mg PO BID 30 Days tab 01/30/20 Sertraline [Zoloft] 25 mg PO DAILY #30 tablet 03/13/20 risperiDONE [RisperDAL] 0.75 mg PO BID #180 tablet 03/13/20 Meclizine [Antivert] 25 mg PO Q8HR PRN #20 tab 04/16/20 Allergies Allergy/AdvReac Type Severity Reaction Status Date / Time No Known Allergies Allergy Verified 05/01/20 02:33 Review of Systems ROS Other: All systems not noted in ROS Statement are negative. <Neville Palomino - Last Filed: 05/01/20 07:21> ROS Other: All systems not noted in ROS Statement are negative. <Neville Ortiz - Last Filed: 05/01/20 22:18> ROS Statement: Those systems with pertinent positive or pertinent negative responses have been documented in the HPI. 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(s): Deaf Syringomyelia History of Any Multi-Drug Resistant Organisms: None Reported Past Surgical History: No Surgical Hx Reported Additional Past Surgical History / Comment(s): testicular surgery Past Anesthesia/Blood Transfusion Reactions: No Reported Reaction Past Psychological History: No Psychological Hx Reported Smoking Status: Current every day smoker Past Alcohol Use History: None Reported Past Drug Use History: Marijuana - Past Family History Mother Family Medical History: Hearing Disorder / Deafness Father Additional Family Medical History / Comment(s): used marijuana <Neville Ortiz - Last Filed: 05/01/20 22:18> General Exam Limitations: no limitations General appearance: alert, in no apparent distress Head exam: Present: atraumatic, normocephalic, normal inspection Eye exam: Present: normal appearance, PERRL, EOMI. Absent: scleral icterus, conjunctival injection, periorbital swelling ENT exam: Present: normal exam, mucous membranes moist Neck exam: Present: normal inspection. Absent: tenderness, meningismus, lymphadenopathy Respiratory exam: Present: normal lung sounds bilaterally. Absent: respiratory distress, wheezes, rales, rhonchi, stridor Cardiovascular Exam: Present: regular rate, normal rhythm, normal heart sounds. Absent: systolic murmur, diastolic murmur, rubs, gallop, clicks GI/Abdominal exam: Present: soft, normal bowel sounds. Absent: distended, tenderness, guarding, rebound, rigid Extremities exam: Present: normal inspection, full ROM, normal capillary refill. Absent: tenderness, pedal edema, joint swelling, calf tenderness Back exam: Present: normal inspection Neurological exam: Present: alert, oriented X3, CN II-XII intact Psychiatric exam: Present: normal affect, normal mood Skin exam: Present: warm, dry, intact, normal color. Absent: rash <Neville Ortiz - Last Filed: 05/01/20 22:18> Course <Neville Ortiz - Last Filed: 05/01/20 22:18> Vital Signs 05/01/20 05/01/20 05/01/20 02:29 02:38 07:30 Temperature 98.3 F Pulse Rate 80 70 80 Respiratory 18 17 18 Rate Blood Pressure 117/70 106/78 135/84 O2 Sat by Pulse 98 99 100 Oximetry - Reevaluation(s) Reevaluation #1: 05/01/20 05:13 Medical clear for psychiatric evaluation (Neville Ortiz) EKG Findings - EKG Comments: EKG Findings:: EKG shows sinus 74 [place] 96 QRS 90 QTC 4:15 <Neville Ortiz - Last Filed: 05/01/20 22:18> Medical Decision Making - Lab Data Result diagrams: 05/01/20 03:31 05/01/20 03:31 <Neville Palomino - Last Filed: 05/01/20 07:21> - Lab Data Result diagrams: 05/01/20 03:31 05/01/20 03:31 <Neville Ortiz - Last Filed: 05/01/20 22:18> - Medical Decision Making 19 male DF for evaluation of dizziness. No acute cause found mental health is clear, continue outpatient antipsychotic medication (Neville Ortiz) - Lab Data Lab Results 05/01/20 05/01/20 05/01/20 Range/Units 03:31 03:31 03:31 WBC 6.3 (4.0-11.0) k/uL RBC 4.84 (4.30-5.90) m/uL Hgb 14.5 (13.0-17.5) gm/dL Hct 41.9 (39.0-53.0) % MCV 86.4 (80.0-100.0) fL MCH 30.0 (25.0-35.0) pg MCHC 34.7 (31.0-37.0) g/dL RDW 14.0 (11.5-15.5) % Plt Count 191 (150-450) k/uL MPV 7.8 Neutrophils % 64 % Lymphocytes % 23 % Monocytes % 6 % Eosinophils % 4 % Basophils % 1 % Neutrophils # 4.1 (1.3-7.7) k/uL Lymphocytes # 1.5 (1.0-4.8) k/uL Monocytes # 0.4 (0-1.0) k/uL Eosinophils # 0.3 (0-0.7) k/uL Basophils # 0.0 (0-0.2) k/uL D-Dimer (<0.60) mg/L FEU Sodium 138 (137-145) mmol/L Potassium 4.4 (3.5-5.1) mmol/L Chloride 106 (98-107) mmol/L Carbon Dioxide 26 (22-30) mmol/L Anion Gap 6 mmol/L BUN 18 (9-20) mg/dL Creatinine 0.87 (0.66-1.25) mg/dL Est GFR (CKD-EPI)AfAm >90 (>60 ml/min/1.73 sqM) Est GFR (CKD-EPI)NonAf >90 (>60 ml/min/1.73 sqM) Glucose 98 (74-99) mg/dL Calcium 9.6 (8.4-10.2) mg/dL Phosphorus 4.4 (2.5-4.5) mg/dL Magnesium 1.9 (1.6-2.3) mg/dL Total Bilirubin 0.3 (0.2-1.3) mg/dL AST 27 (17-59) U/L ALT 38 (4-49) U/L Alkaline Phosphatase 59 (38-126) U/L Creatine Kinase 97 (55-170) U/L Troponin I <0.012 (0.000-0.034) ng/mL NT-Pro-B Natriuret Pep pg/mL Total Protein 6.9 (6.3-8.2) g/dL Albumin 4.6 (3.5-5.0) g/dL TSH 0.472 (0.465-4.680) mIU/L Urine Color Urine Appearance (Clear) Urine pH (5.0-8.0) Ur Specific [place] (1.001-1.035) Urine Protein (Negative) Urine Glucose (UA) (Negative) Urine Ketones (Negative) Urine Blood (Negative) Urine Nitrite (Negative) Urine Bilirubin (Negative) Urine Urobilinogen (<2.0) mg/dL Ur Leukocyte Esterase (Negative) 05/01/20 05/01/20 05/01/20 Range/Units 03:31 03:31 03:52 WBC (4.0-11.0) k/uL RBC (4.30-5.90) m/uL Hgb (13.0-17.5) gm/dL Hct (39.0-53.0) % MCV (80.0-100.0) fL MCH (25.0-35.0) pg MCHC (31.0-37.0) g/dL RDW (11.5-15.5) % Plt Count (150-450) k/uL MPV Neutrophils % % Lymphocytes % % Monocytes % % Eosinophils % % Basophils % % Neutrophils # (1.3-7.7) k/uL Lymphocytes # (1.0-4.8) k/uL Monocytes # (0-1.0) k/uL Eosinophils # (0-0.7) k/uL Basophils # (0-0.2) k/uL D-Dimer <0.17 (<0.60) mg/L FEU Sodium (137-145) mmol/L Potassium (3.5-5.1) mmol/L Chloride (98-107) mmol/L Carbon Dioxide (22-30) mmol/L Anion Gap mmol/L BUN (9-20) mg/dL Creatinine (0.66-1.25) mg/dL Est GFR (CKD-EPI)AfAm (>60 ml/min/1.73 sqM) Est GFR (CKD-EPI)NonAf (>60 ml/min/1.73 sqM) Glucose (74-99) mg/dL Calcium (8.4-10.2) mg/dL Phosphorus (2.5-4.5) mg/dL Magnesium (1.6-2.3) mg/dL Total Bilirubin (0.2-1.3) mg/dL AST (17-59) U/L ALT (4-49) U/L Alkaline Phosphatase (38-126) U/L Creatine Kinase (55-170) U/L Troponin I (0.000-0.034) ng/mL NT-Pro-B Natriuret Pep 16 pg/mL Total Protein (6.3-8.2) g/dL Albumin (3.5-5.0) g/dL TSH (0.465-4.680) mIU/L Urine Color Colorless Urine Appearance Clear (Clear) Urine pH 6.5 (5.0-8.0) Ur Specific [place] 1.001 (1.001-1.035) Urine Protein Negative (Negative) Urine Glucose (UA) Negative (Negative) Urine Ketones Negative (Negative) Urine Blood Negative (Negative) Urine Nitrite Negative (Negative) Urine Bilirubin Negative (Negative) Urine Urobilinogen <2.0 (<2.0) mg/dL Ur Leukocyte Esterase Negative (Negative) Disposition Is patient prescribed a controlled substance at d/c from ED?: No Time of Disposition: 07:22 <Neville Palomino - Last Filed: 05/01/20 07:21> <Neville Ortiz - Last Filed: 05/01/20 22:18> Clinical Impression: Medication course changed Disposition: HOME SELF-CARE Condition: Good Referrals: Wing Snaches MD [Primary Care Provider] - 1-2 days
[2020-05-01] MEDS ORDERED: LORazepam 2 MG/ML INJ IV STA (03:31)
[2020-05-01 03:40] LABS: Basophils % (A) 1 %; Eosinophils # (A) 0.3 k/uL (0-0.7); Eosinophils % (A) 4 %; HCT 41.9 % (39.0-53.0); HGB 14.5 gm/dL (13.0-17.5); Lymphocytes # (A) 1.5 k/uL (1.0-4.8); Lymphocytes % (A) 23 %; MCHC 34.7 g/dL (31.0-37.0); MCV 86.4 fL (80.0-100.0); Mean Platelet Volume 7.8; Monocytes # (A) 0.4 k/uL (0-1.0); Monocytes % (A) 6 %; Neutrophils # (A) 4.1 k/uL (1.3-7.7); Neutrophils % (A) 64 %; Platelet Count 191 k/uL (150-450); RBC 4.84 m/uL (4.30-5.90); WBC 6.3 k/uL (4.0-11.0)
[2020-05-01 03:50] LABS: ALT 38 U/L (4-49); AST 27 U/L (17-59); African American GFR (CKD) >90 (>60 ml/min/1.73 sqM); Albumin 4.6 g/dL (3.5-5.0); Alkaline Phosphatase 59 U/L (38-126); Anion Gap 6 mmol/L; Blood Urea Nitrogen 18 mg/dL (9-20); Calcium 9.6 mg/dL (8.4-10.2); Carbon Dioxide 26 mmol/L (22-30); Chloride 106 mmol/L (98-107); Creatine Kinase 97 U/L (55-170); Glucose 98 mg/dL (74-99); Magnesium 1.9 mg/dL (1.6-2.3); Non-African American GFR(CKD) >90 (>60 ml/min/1.73 sqM); Phosphorus 4.4 mg/dL (2.5-4.5); Potassium 4.4 mmol/L (3.5-5.1); Sodium 138 mmol/L (137-145); Total Bilirubin 0.3 mg/dL (0.2-1.3); Total Protein 6.9 g/dL (6.3-8.2)
[2020-05-01 04:02] LABS: Appearance,Urine Clear (Clear); Bilirubin,Urine Negative (Negative); Blood,Urine Negative (Negative); Color,Urine Colorless; Glucose,Urine (UA) Negative (Negative); Ketones,Urine Negative (Negative); Leukocyte Esterase,Urine Negative (Negative); Nitrite,Urine Negative (Negative); PH, Urine 6.5 (5.0-8.0); Protein,Urine Negative (Negative); Specific Gravity,Urine 1.001 (1.001-1.035); Urobilinogen,Urine <2.0 mg/dL (<2.0)
[2020-05-01 07:30] VITALS: BP 135/84; PULSE 80; RESP 18
== END 2020-05-01 07:30 | disposition home or self-care (01) ==
LOC: EC 02:25
DX: R42 Dizziness and giddiness (principal); H91.90 Unspecified hearing loss, unspecified ear; F17.200 Nicotine dependence, unspecified, uncomplicated
CPT/HCPCS: 36415; 93005; 85379; 83880; 80053; 82550; 83735; 84100; 84443; 84484; 85025; 81003; 99285; 96374; 96361 ×4; J2060

== ENCOUNTER 2021-02-08 20:53 | Inpatient (IN) | payer MEDICARE, OTHER ==
[2021-02-08] MEDS ORDERED: SODIUM CHLORIDE 0.9% 500 ML 500 ML IV STA (21:09)
--- NOTE | 2021-02-08 21:11 | ED ---
Altered Mental Status HPI - General Stated Complaint: Overdose Time Seen by Provider: 02/08/21 21:02 Source: EMS Mode of arrival: EMS Limitations: altered mental status - History of Present Illness Initial Comments: This patient is a 20-year-old man brought by EMS who were called for a suspected overdose. EMS has left the scene by the time I had arrived at the bedside. The patient very hard of hearing and does appear mildly intoxicated. Patient did admit to marijuana use. Denied pain. MD Complaint: intoxication -: unknown Severity: moderate - Related Data Home Medications Medication Instructions Recorded Confirmed risperiDONE 2 mg PO DAILY 02/09/21 02/09/21 risperiDONE 4 mg PO DAILY 02/09/21 02/09/21 Previous Rx's Medication Instructions Recorded Sertraline [Zoloft] 25 mg PO DAILY #30 tablet 03/13/20 Allergies Allergy/AdvReac Type Severity Reaction Status Date / Time No Known Allergies Allergy Verified 02/09/21 07:26 Review of Systems ROS Statement: Those systems with pertinent positive or pertinent negative responses have been documented in the HPI. ROS Other: All systems not noted in ROS Statement are negative. Limitations: ROS unobtainable due to patients medical condition Cardiovascular: Denies: chest pain Gastrointestinal: Denies: abdominal pain Neurological: Denies: headache 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(s): Deaf Syringomyelia History of Any Multi-Drug Resistant Organisms: None Reported Past Surgical History: No Surgical Hx Reported Additional Past Surgical History / Comment(s): testicular surgery Past Anesthesia/Blood Transfusion Reactions: No Reported Reaction Past Psychological History: No Psychological Hx Reported Smoking Status: Current every day smoker Past Alcohol Use History: None Reported Past Drug Use History: Marijuana - Past Family History Mother Family Medical History: Hearing Disorder / Deafness Father Additional Family Medical History / Comment(s): used marijuana General Exam General appearance: alert, in no apparent distress, appears intoxicated Head exam: Present: atraumatic, normocephalic Eye exam: Present: normal appearance, PERRL, EOMI. Absent: nystagmus Neck exam: Present: full ROM. Absent: tenderness Respiratory exam: Present: normal lung sounds bilaterally. Absent: respiratory distress, wheezes, rales, rhonchi, stridor, chest wall tenderness Cardiovascular Exam: Present: regular rate, normal rhythm, normal heart sounds. Absent: systolic murmur, diastolic murmur, rubs, gallop GI/Abdominal exam: Present: soft. Absent: distended, tenderness, guarding, rebound, rigid, mass Back exam: Present: normal inspection. Absent: vertebral tenderness Neurological exam: Present: alert. Absent: motor sensory deficit Skin exam: Present: warm, dry, intact, normal color. Absent: rash Course Vital Signs 02/08/21 02/09/21 02/09/21 21:07 01:12 04:06 Temperature 98.7 F Pulse Rate 72 58 L 53 L Respiratory 20 18 18 Rate Blood Pressure 141/97 125/80 119/80 O2 Sat by Pulse 98 100 99 Oximetry 02/09/21 02/09/21 02/09/21 04:16 07:04 07:28 Temperature Pulse Rate 48 L 50 L 50 L Respiratory 18 18 16 Rate Blood Pressure 112/70 104/71 113/81 O2 Sat by Pulse 98 98 98 Oximetry 02/09/21 02/09/21 12:10 14:08 Temperature Pulse Rate 60 60 Respiratory 16 18 Rate Blood Pressure 93/54 125/77 O2 Sat by Pulse 98 98 Oximetry Medical Decision Making - Lab Data Result diagrams: 02/08/21 21:15 02/08/21 21:15 Lab Results 02/08/21 02/08/21 02/08/21 Range/Units 21:15 21:15 21:15 WBC 7.4 (3.8-10.6) k/uL RBC 4.49 (4.30-5.90) m/uL Hgb 13.2 (13.0-17.5) gm/dL Hct 39.2 (39.0-53.0) % MCV 87.1 (80.0-100.0) fL MCH 29.4 (25.0-35.0) pg MCHC 33.7 (31.0-37.0) g/dL RDW 13.0 (11.5-15.5) % Plt Count 166 (150-450) k/uL MPV 8.5 Neutrophils % 62 % Lymphocytes % 25 % Monocytes % 6 % Eosinophils % 6 % Basophils % 1 % Neutrophils # 4.6 (1.3-7.7) k/uL Lymphocytes # 1.8 (1.0-4.8) k/uL Monocytes # 0.5 (0-1.0) k/uL Eosinophils # 0.4 (0-0.7) k/uL Basophils # 0.0 (0-0.2) k/uL Sodium 134 L (137-145) mmol/L Potassium 3.6 (3.5-5.1) mmol/L Chloride 101 (98-107) mmol/L Carbon Dioxide 24 (22-30) mmol/L Anion Gap 9 mmol/L BUN 10 (9-20) mg/dL Creatinine 0.91 (0.66-1.25) mg/dL Est GFR (CKD-EPI)AfAm >90 (>60 ml/min/1.73 sqM) Est GFR (CKD-EPI)NonAf >90 (>60 ml/min/1.73 sqM) Glucose 113 H (74-99) mg/dL Plasma Lactic Acid Ryan (0.7-2.0) mmol/L Calcium 9.1 (8.4-10.2) mg/dL Total Bilirubin 0.3 (0.2-1.3) mg/dL AST 18 (17-59) U/L ALT 13 (4-49) U/L Alkaline Phosphatase 64 (38-126) U/L Total Protein 6.1 L (6.3-8.2) g/dL Albumin 4.0 (3.5-5.0) g/dL Vitamin B12 (200.0-944.0) pg/mL Salicylates <1.0 mg/dL Urine Opiates Screen Not Detected (NotDetected) Ur Oxycodone Screen Not Detected (NotDetected) Urine Methadone Screen Not Detected (NotDetected) Ur Propoxyphene Screen Not Detected (NotDetected) Acetaminophen <10.0 ug/mL Ur Barbiturates Screen Not Detected (NotDetected) U Tricyclic Antidepress Not Detected (NotDetected) Ur Phencyclidine Scrn Not Detected (NotDetected) Ur Amphetamines Screen Detected H (NotDetected) U Methamphetamines Scrn Not Detected (NotDetected) U Benzodiazepines Scrn Not Detected (NotDetected) Urine Cocaine Screen Not Detected (NotDetected) U Marijuana (THC) Screen Detected H (NotDetected) Serum Alcohol <10 mg/dL 02/08/21 02/08/21 Range/Units 21:15 21:15 WBC (3.8-10.6) k/uL RBC (4.30-5.90) m/uL Hgb (13.0-17.5) gm/dL Hct (39.0-53.0) % MCV (80.0-100.0) fL MCH (25.0-35.0) pg MCHC (31.0-37.0) g/dL RDW (11.5-15.5) % Plt Count (150-450) k/uL MPV Neutrophils % % Lymphocytes % % Monocytes % % Eosinophils % % Basophils % % Neutrophils # (1.3-7.7) k/uL Lymphocytes # (1.0-4.8) k/uL Monocytes # (0-1.0) k/uL Eosinophils # (0-0.7) k/uL Basophils # (0-0.2) k/uL Sodium (137-145) mmol/L Potassium (3.5-5.1) mmol/L Chloride (98-107) mmol/L Carbon Dioxide (22-30) mmol/L Anion Gap mmol/L BUN (9-20) mg/dL Creatinine (0.66-1.25) mg/dL Est GFR (CKD-EPI)AfAm (>60 ml/min/1.73 sqM) Est GFR (CKD-EPI)NonAf (>60 ml/min/1.73 sqM) Glucose (74-99) mg/dL Plasma Lactic Acid Ryan 1.8 (0.7-2.0) mmol/L Calcium (8.4-10.2) mg/dL Total Bilirubin (0.2-1.3) mg/dL AST (17-59) U/L ALT (4-49) U/L Alkaline Phosphatase (38-126) U/L Total Protein (6.3-8.2) g/dL Albumin (3.5-5.0) g/dL Vitamin B12 364.0 (200.0-944.0) pg/mL Salicylates mg/dL Urine Opiates Screen (NotDetected) Ur Oxycodone Screen (NotDetected) Urine Methadone Screen (NotDetected) Ur Propoxyphene Screen (NotDetected) Acetaminophen ug/mL Ur Barbiturates Screen (NotDetected) U Tricyclic Antidepress (NotDetected) Ur Phencyclidine Scrn (NotDetected) Ur Amphetamines Screen (NotDetected) U Methamphetamines Scrn (NotDetected) U Benzodiazepines Scrn (NotDetected) Urine Cocaine Screen (NotDetected) U Marijuana (THC) Screen (NotDetected) Serum Alcohol mg/dL - EKG Data -: EKG Interpreted by Nm EKG shows normal: sinus rhythm, intervals ([place] interval 108 ms, short, QRS duration 96 ms, normal. QTC 419 ms, normal.), QRS complexes (Suspect incomplete right bundle branch block.), ST-T waves (Normal) Rate: normal (Rate 79 bpm) Interpretation: LVH (Possible minimal voltage criteria for LVH) Disposition Clinical Impression: Overdose, Altered mental status Disposition: ADMITTED IP TO THIS HOSP Condition: Fair
[2021-02-08 21:12] VITALS: TEMP 98.7
[2021-02-08 21:39] LABS: Basophils % (A) 1 %; Eosinophils # (A) 0.4 k/uL (0-0.7); Eosinophils % (A) 6 %; HCT 39.2 % (39.0-53.0); HGB 13.2 gm/dL (13.0-17.5); Lymphocytes # (A) 1.8 k/uL (1.0-4.8); Lymphocytes % (A) 25 %; MCH 29.4 pg (25.0-35.0); MCHC 33.7 g/dL (31.0-37.0); MCV 87.1 fL (80.0-100.0); Mean Platelet Volume 8.5; Monocytes # (A) 0.5 k/uL (0-1.0); Monocytes % (A) 6 %; Neutrophils # (A) 4.6 k/uL (1.3-7.7); Neutrophils % (A) 62 %; Platelet Count 166 k/uL (150-450); RBC 4.49 m/uL (4.30-5.90); WBC 7.4 k/uL (3.8-10.6)
--- NOTE | 2021-02-08 21:54 | CT ---
EXAMINATION TYPE: CT brain wo con DATE OF EXAM: 02/08/2021 COMPARISON: 04/16/2020 HISTORY: AMS, possbile drug overdose CT DLP: 1031.4 mGycm Automated exposure control for dose reduction was used. Ventricles and sulci appear normal. There is no mass effect nor midline shift. There is no sign of in tracranial hemorrhage. Calvarium is intact. Skull base is intact. There is normal aeration of the mas toid sinuses. IMPRESSION: Negative CT scan of the brain. No change.
[2021-02-08 21:55] LABS: Amphetamine Screen,Urine Detected (NotDetected); Barbiturate Screen,Urine Not Detected (NotDetected); Benzodiazepines Screen,Urine Not Detected (NotDetected); Cocaine Screen,Urine Not Detected (NotDetected); Methadone Screen, Urine Not Detected (NotDetected); Opiate Screen,Urine Not Detected (NotDetected); Oxycodone Screen, Urine Not Detected (NotDetected); Phencyclidine Screen,Urine Not Detected (NotDetected); Tricyclic Antidepressant,Urine Not Detected (NotDetected); Urn Cannabinoid Scrn Detected (NotDetected)
[2021-02-08 21:58] LABS: ALT 13 U/L (4-49); AST 18 U/L (17-59); Acetaminophen <10.0 ug/mL; African American GFR (CKD) >90 (>60 ml/min/1.73 sqM); Alcohol <10 mg/dL; Alkaline Phosphatase 64 U/L (38-126); Anion Gap 9 mmol/L; Blood Urea Nitrogen 10 mg/dL (9-20); Calcium 9.1 mg/dL (8.4-10.2); Carbon Dioxide 24 mmol/L (22-30); Chloride 101 mmol/L (98-107); Glucose 113 mg/dL (74-99); Non-African American GFR(CKD) >90 (>60 ml/min/1.73 sqM); Potassium 3.6 mmol/L (3.5-5.1); Salicylate <1.0 mg/dL; Sodium 134 mmol/L (137-145); Total Bilirubin 0.3 mg/dL (0.2-1.3); Total Protein 6.1 g/dL (6.3-8.2)
[2021-02-09] MEDS ORDERED: ONDANSETRON 4 MG/2 ML VIAL IVP PRN (01:10)
[2021-02-09] MEDS ORDERED: NALOXONE 0.4 MG/ML 1 ML VIAL IV PRN (01:10)
[2021-02-09] MEDS ORDERED: SODIUM CHLORIDE 0.9% 1,000 ML IV SCH (01:15)
[2021-02-09 14:09] VITALS: RESP 18
--- NOTE | 2021-02-09 15:08 | P.CN ---
Psychiatric Consult - . Consult date: 02/09/21 Consult:: 02/09/21 15:08 IDENTIFYING DATA: This patient is a single, unemployed, 20-year-old male who presents to the emergency department for suspected overdose. HISTORY OF PRESENT ILLNESS: The patient presented to the hospital on 02/08/21, brought in by EMS for suspected overdose. Present at the patient's bedside with the patient's grandfather Sagar Rodriguez. Patient is agreeable to having his grandfather present for the psychiatric interview and provide collateral information. The patient and grandfather confirmed that the patient did take a significant amount of marijuana. He consumes marijuana using oils. The patient maintains he was only "trying to get high." His grandfather states he found him to be altered, with tachycardia, and difficult to arouse. He then notified EMS who brought the patient to the ED. The patient is currently denying any current suicidal or homicidal ideation, intention, and/or plan. He reports no paranoia or other delusions. He denies any visual hallucinations but does report auditory hallucinations. He states these hallucinations come in the form of different voices; some recognizable, and others not. He reports they do not command him to do things or say mean things but that they contribute to his paranoia, often telling him that others are speaking about him. The voices have been present for months. He reports they occur multiple times a day. He denies any other signifcant psychotic symptoms. The patient reports no significant symptoms of bipolar disorder at this time. He reports no periods of excessive energy, mood swings, or grandiosity. He reports no significnt symptoms of depression. His grandfather is primarily concerned with the patient's desire to use marijuana. He states the patient is constantly trying to "get high and stay high." The patient was last admitted to our psychiatric unit in January of 2020. At the time, the patient was petitioned by his cousin due to increasing outbursts of self harm, punching rodriguez, and attempting to jump out of a moving car. He was also noted then to be experiencing auditory hallucinations and engaging in substance abuse. His grandfather does note that the patient has been punching himself again. He has done so a few weeks prior to this presentation. The patient admits to this but states he would not do so again and that he did so out of frustration. He is scheduled for an outpatient appointment with the [facility] on March 09. PAST PSYCHIATRIC HISTORY: The patient has a previous history of depressive disorder. He was last admitted to our psychiatric unit in January of 2020 and was discharged on a regimen of risperdal 0.75 mg twice daily and zoloft 25 mg daily. Prior to this, the patient had no reported psychiatric history. He reports no prior attempts at suicide. He is currently not open with any outpatient providers. PAST MEDICAL HISTORY: Past Medical History: Hearing Disorder / Deafness Additional Past Medical History / Comment(s): Deaf Syringomyelia History of Any Multi-Drug Resistant Organisms: None Reported Past Surgical History: No Surgical Hx Reported Additional Past Surgical History / Comment(s): testicular surgery Past Anesthesia/Blood Transfusion Reactions: No Reported Reaction Past Psychological History: No Psychological Hx Reported Additional Psychological History / Comment(s): Pt denies any depression or mental health problems. He is independent. He lives with his grandparents. Smoking Status: Current every day smoker Past Alcohol Use History: None Reported Past Drug Use History: Marijuana Additional Drug Use History / Comment(s): Pt denies history of heroin and methamphetamine use. ALLERGIES: NO KNOWN DRUG ALLERGIES CHEMICAL DEPENDENCY HISTORY: The patient smokes one pack per day. He denies any significant alcohol use. The patient has been using marijuana heavily. He reports that he uses 3.5 grams of marijuana every 2 days. He denies any recent alcohol use but chart review reveals heavy use in the past (12 beers every other day). He has a history of xanax and crack cocaine use in the past. FAMILY PSYCHIATRIC/SUBSTANCE USE HISTORY: Mother - Depression. No family history of suicide or addiction. SOCIAL HISTORY: Patient lives with his mother and grandparents. He stays in the finished basement of his grandfather's home. He is unemployed, never , and has no children. His father from his mother at an early age. MENTAL STATUS EXAM: General Appearance: Patient appears to be stated age is alert, pleasant, and cooperative. Patient appears to have fair hygiene and grooming wearing hospital gown with fair eye contact. Wears hearing aids during the interview. Behavior: Patient is calmly lying in bed without any agitated behavior. Speech: Patient's speech is fluent and nonpressured. Mood/Affect: Patient reports their mood is "Okay", affect is congruent and constricted in range. Suicidality/Homicidality: Patient denies having any suicidal or homicidal ideation, intention, and/or plan. Perceptions: Patient denies any visual hallucinations and denies any auditory hallucinations Though content/process: There is no evidence of any delusional thought content and thought process is linear and goal-directed. Memory and concentration: AOX3, grossly intact for the purposes of this session. Can spell "WORLD" backwards Judgment and insight: Poor IMPRESSIONS: Cannabis overdose Cannabis Use Disorder Depressive Disorder, unspecified PLAN: -At this time patient DOES NOT meet criteria for inpatient psychiatric admission. The patient presents with no imminent risk of harm to self or others through psychiatric pathology. He engages in heavy substance abuse and was counselled at great length the dangers of his heavy use. He is scheduled for outpatient follow up with [facility] on March 09. -Would recommend the following medication changes/additions: No medication changes are recommended at this time. Recommend patient continue his home medications of risperdal (2 mg AM, 4 mg HS) and Zoloft. -Recommend referrals and resources for substance use disorder. -Recommend outpatient psychiatric follow-up -Psychiatry will sign off at this point, please contact with any questions.
[2021-02-09 15:42] VITALS: BP 108/70; PULSE 64
--- NOTE | 2021-02-09 17:15 | P.HPIM ---
History of Present Illness H&P Date: 02/09/21 Chief Complaint: Altered consciousness History of presenting complaint: This is a 20-year-old patient, who actually follows at the [facility] clinic. History is primarily obtained by the grandfather the bedside. The grandfather has furnished a house in [place] by the patient and his daughter live. Patient pretty much is in the basement. He does smoke marijuana. He still gone back to school attending 10th grade. Patient has been getting hearing aids since the age of 3. Has a diagnoses of schizophrenia. Yesterday patient had gone out and it brought her in a canister. Any puts distinguishes cylinder and so smokes comes out of it. Patient when came back upstairs he was somewhat dazed. 911 was called. Per the EMS report: Patient was a bit slow to respond to questions. Patient able to walk assisted to the ambulance. Patient was noted to be sleepy. Slow to respond to any stimuli. Bit of dilated pupils that were sluggish. Patient was talking and mumbled speech. Patient had called earlier to the weight store. Patient's heart rate was a bit elevated during the transport. He did vomit once. Blood pressure did normalize. Pulse ox was 95- 99%. I did speak to the ER physician Dr. Bronson. When the patient was admitted. He was going to contact to poison control. Telemetry has been unremarkable. Currently patient laying in bed. Comfortable. Grandfather the bedside. Review of systems: GEN.: None EYES: None HEENT: Hearing aids NECK: None RESPIRATORY: None CARDIOVASCULAR: None GASTROINTESTINAL: None GENITOURINARY: None MUSCULOSKELETAL: None LYMPHATICS: None HEMATOLOGICAL: None PSYCHIATRY: As above NEUROLOGICAL: None Past medical history to include: Schizophrenia, weighs hearing aids since the age of 3. Otherwise very hard of hearing Social history: Lives with his mother. Attending school in 10th grade. Does smoke Dope. Also inhales other recreational drugs. Family history: Reviewed, noncontributory to presentation Physical examination: VITAL SIGNS: 98.7, 72, 20, 1 4197, 98% room air upon presentation GENERAL: BMI 18.9, laying in bed, awake, comfortable, tattoos. EYES: Pupils equal. Conjunctiva normal. HEENT: External appearance of nose and ears normal, oral cavity grossly normal. NECK: JVD not raised; masses not palpable. HEART: First and second heart sounds are normal; no edema. LUNGS: Respiratory rate normal; clear to auscultation. ABDOMEN: Soft, nontender, liver spleen not palpable, no masses palpable. PSYCH: Alert and oriented x3; mood and affect normal. NEUROLOGICAL: Cranial nerves grossly intact; no facial asymmetry, power and sensation grossly intact. LYMPHATICS: No lymph nodes palpable in the axilla and neck INVESTIGATIONS, reviewed in the clinical context: WBC 7.4 hemoglobin 13.2 platelets 166 potassium 3.6 creatinine 0.91 Urine drug screen: Amphetamine positive marijuana positive serum alcohol less than 10 Coronavirus [PCR]: Not detected EKG tracing personally reviewed by me-sinus rhythm, nonspecific findings Assessment and plan: -This is a patient does marijuana, did inhale recreational something out of a canister that he burned. Overnight patient has recovered. Quite back to his baseline. Acute delirium/encephalopathy from above -Recreational marijuana use -Chronic cardiac hearing with hearing aids since the age of 3 Patient was on telemetry overnight. Care was discussed with the grandfather the bedside. Psychiatry was consulted. Home medications renewed when okay with psychiatry. 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(s): Deaf Syringomyelia History of Any Multi-Drug Resistant Organisms: None Reported Past Surgical History: No Surgical Hx Reported Additional Past Surgical History / Comment(s): testicular surgery Past Anesthesia/Blood Transfusion Reactions: No Reported Reaction Past Psychological History: No Psychological Hx Reported Smoking Status: Current every day smoker Past Alcohol Use History: None Reported Past Drug Use History: Marijuana - Past Family History Mother Family Medical History: Hearing Disorder / Deafness Father Additional Family Medical History / Comment(s): used marijuana Medications and Allergies Home Medications Medication Instructions Recorded Confirmed Type Sertraline [Zoloft] 25 mg PO DAILY #30 tablet 03/13/20 02/09/21 Rx risperiDONE 2 mg PO DAILY 02/09/21 02/09/21 History risperiDONE 4 mg PO DAILY 02/09/21 02/09/21 History Allergies Allergy/AdvReac Type Severity Reaction Status Date / Time No Known Allergies Allergy Verified 02/09/21 07:26 Physical Exam Vitals: Vital Signs Temp Pulse Resp BP Pulse Ox 02/09/21 07:28 50 L 16 113/81 98 02/09/21 07:04 50 L 18 104/71 98 02/09/21 04:16 48 L 18 112/70 98 02/09/21 04:06 53 L 18 119/80 99 02/09/21 01:12 58 L 18 125/80 100 02/08/21 21:07 98.7 F 72 20 141/97 98 Intake and Output 02/08/21 02/09/21 02/09/21 22:59 06:59 14:59 Other: Weight 58.06 kg Results CBC & Chem 7: 02/08/21 21:15 02/08/21 21:15 Labs: Abnormal Lab Results - Last 24 Hours (Table) 02/08/21 02/08/21 Range/Units 21:15 21:15 Sodium 134 L (137-145) mmol/L Glucose 113 H (74-99) mg/dL Total Protein 6.1 L (6.3-8.2) g/dL Ur Amphetamines Screen Detected H (NotDetected) U Marijuana (THC) Screen Detected H (NotDetected)
--- NOTE | 2021-02-09 20:19 | P.DS ---
Providers Date of admission: 02/09/21 01:10 Expected date of discharge: 02/09/21 Attending physician: Jose De Jesus Montes Consults: 02/09/21 01:11 Consult Physician Routine Consulting Provider: Jose Juan Ramirez Reason/Comments: Overdose Do you want consulting provider notified?: Yes Primary care physician: [facility] Course: Chief Complaint: Altered consciousness History of presenting complaint: This is a 20-year-old patient, who actually follows at the [facility] clinic. History is primarily obtained by the grandfather the bedside. The grandfather has furnished a house in [place] by the patient and his daughter live. Patient pretty much is in the basement. He does smoke marijuana. He still gone back to school attending 10th grade. Patient has been getting hearing aids since the age of 3. Has a diagnoses of schizophrenia. Yesterday patient had gone out and it brought her in a canister. Any puts distinguishes cylinder and so smokes comes out of it. Patient when came back upstairs he was somewhat dazed. 911 was called. Per the EMS report: Patient was a bit slow to respond to questions. Patient able to walk assisted to the ambulance. Patient was noted to be sleepy. Slow to respond to any stimuli. Bit of dilated pupils that were sluggish. Patient was talking and mumbled speech. Patient had called [employer] to the weight store. Patient's heart rate was a bit elevated during the transport. He did vomit once. Blood pressure did normalize. Pulse ox was 95- 99%. I did speak to the ER physician Dr. Bronson. When the patient was admitted. He was going to contact to poison control. Telemetry has been unremarkable. Currently patient laying in bed. Comfortable. Grandfather the bedside. Patient remains stable. Unremarkable telemetry. Patient was seen by Dr. Ramirez from psychiatry. Cleared for discharge. I discussed with him. No change in home medications. Patient will follow-up at the [facility]. Advised again use of recreational drugs and vaping. Consultation: Dr. Ramirez from psychiatry Past medical history to include: Schizophrenia, weighs hearing aids since the age of 3. Otherwise very hard of hearing Social history: Lives with his mother. Attending school in 10th grade. Does smoke Dope. Also inhales other recreational drugs. Family history: Reviewed, noncontributory to presentation Physical examination: VITAL SIGNS: 98.7, 72, 20, 1 4197, 98% room air upon presentation GENERAL: BMI 18.9, laying in bed, awake, comfortable, tattoos. EYES: Pupils equal. Conjunctiva normal. HEENT: External appearance of nose and ears normal, oral cavity grossly normal. NECK: JVD not raised; masses not palpable. HEART: First and second heart sounds are normal; no edema. LUNGS: Respiratory rate normal; clear to auscultation. ABDOMEN: Soft, nontender, liver spleen not palpable, no masses palpable. PSYCH: Alert and oriented x3; mood and affect normal. NEUROLOGICAL: Cranial nerves grossly intact; no facial asymmetry, power and sensation grossly intact. INVESTIGATIONS, reviewed in the clinical context: WBC 7.4 hemoglobin 13.2 platelets 166 potassium 3.6 creatinine 0.91 Urine drug screen: Amphetamine positive marijuana positive serum alcohol less than 10 Coronavirus [PCR]: Not detected EKG tracing personally reviewed by me-sinus rhythm, nonspecific findings Assessment and plan: -This is a patient does marijuana, did inhale recreational something out of a canister that he burned. Overnight patient has recovered. Quite back to his baseline. Acute delirium/encephalopathy from above -Recreational marijuana use Advised against the same -Chronic hearing impaired with hearing aids since the age of 3 Disposition: Home with family Plan - Discharge Summary New Discharge Prescriptions: Continue Sertraline [Zoloft] 25 mg PO DAILY #30 tablet risperiDONE 4 mg PO DAILY risperiDONE 2 mg PO DAILY Discharge Medication List Sertraline [Zoloft] 25 mg PO DAILY #30 tablet 03/13/20 [Rx] risperiDONE 2 mg PO DAILY 02/09/21 [History] risperiDONE 4 mg PO DAILY 02/09/21 [History] Follow up Appointment(s)/[facility]erral[facility], [facility]Other[facility] - 1 Week Discharge Disposition: HOME SELF-CARE
== END 2021-02-09 15:43 | disposition home or self-care (01) | DRG 918 ==
LOC: EC 20:53 → 3SCARD 02-09 01:10
PROVIDERS: ADMIT Hospitalist; ATTEND Hospitalist
DX: T40.7X1A Poisoning by cannabis (derivatives), accidental (unintentional), initial encounter (principal); G93.40 Encephalopathy, unspecified; F12.129 Cannabis abuse with intoxication, unspecified; F17.210 Nicotine dependence, cigarettes, uncomplicated; F20.9 Schizophrenia, unspecified; H57.04 Mydriasis; H91.8X3 Other specified hearing loss, bilateral; Z97.4 Presence of external hearing-aid; Z71.51 Drug abuse counseling and surveillance of drug abuser; I45.10 Unspecified right bundle-branch block; Z56.0 Unemployment, unspecified; F32.9 Major depressive disorder, single episode, unspecified; Z91.5 Personal history of self-harm; Z79.899 Other long term (current) drug therapy; Z20.822 Contact with and (suspected) exposure to COVID-19
CPT/HCPCS: 36415; 70450; 80053; 80143; 80179; 80306; 80320; 82607; 83605; 85025; 87635; 93005; 99285

== ENCOUNTER 2021-07-03 15:31 | Inpatient (IN) | payer MEDICARE, MEDICAID ==
--- NOTE | 2021-07-03 16:31 | ED ---
General Adult HPI - General Chief complaint: Psychiatric Symptoms Stated complaint: Mental Health Time Seen by Provider: 07/03/21 15:45 Source: patient, family, RN notes reviewed, old records reviewed Mode of arrival: ambulatory Limitations: no limitations - History of Present Illness Initial comments: 20-year-old male presenting for mental health evaluation. History is obtainable from the patient and from the patient's cousin who is his guardian. Patient has been petitioned for psychiatric evaluation. Apparently he has been paranoid and having auditory hallucination. He does have history of mental illness. Patient denies suicidal or homicidal thoughts. No physical complaints. - Related Data Home Medications Medication Instructions Recorded Confirmed ARIPiprazole IM SYRINGE [Abilify 400 mg IM Q28D 07/03/21 07/03/21 Maintena Syringe] ARIPiprazole [Abilify] 5 mg PO HS 07/03/21 07/03/21 Cholecalciferol [Vitamin D3 (125 125 mcg PO DAILY 07/03/21 07/03/21 Mcg = 5000 Iu)] Loratadine 10 mg PO DAILY 07/03/21 07/03/21 Propranolol LA [Inderal LA] 60 mg PO DAILY 07/03/21 07/03/21 Allergies Allergy/AdvReac Type Severity Reaction Status Date / Time No Known Allergies Allergy Verified 07/03/21 17:10 Review of Systems ROS Statement: Those systems with pertinent positive or pertinent negative responses have been documented in the HPI. ROS Other: All systems not noted in ROS Statement are negative. 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(s): Deaf Syringomyelia History of Any Multi-Drug Resistant Organisms: None Reported Past Surgical History: No Surgical Hx Reported Additional Past Surgical History / Comment(s): testicular surgery Past Anesthesia/Blood Transfusion Reactions: No Reported Reaction Past Psychological History: Bipolar, Depression, Schizophrenia Smoking Status: Current every day smoker Past Alcohol Use History: None Reported Past Drug Use History: Marijuana, Methamphetamine - Past Family History Mother Family Medical History: Hearing Disorder / Deafness Father Additional Family Medical History / Comment(s): used marijuana General Exam Limitations: no limitations General appearance: alert, in no apparent distress Head exam: Present: atraumatic, normocephalic Eye exam: Present: normal appearance, PERRL ENT exam: Present: normal exam Neck exam: Present: normal inspection. Absent: tenderness, meningismus Respiratory exam: Present: normal lung sounds bilaterally. Absent: respiratory distress, wheezes Cardiovascular Exam: Present: regular rate. Absent: normal rhythm, bradycardia GI/Abdominal exam: Present: soft. Absent: distended, tenderness, rebound Extremities exam: Present: normal inspection, normal capillary refill. Absent: pedal edema Neurological exam: Present: alert. Absent: motor sensory deficit Psychiatric exam: Present: flat affect Skin exam: Present: warm, dry, intact. Absent: cyanosis, diaphoretic Course Vital Signs 07/03/21 15:40 Temperature 98.2 F Pulse Rate 109 H Respiratory 18 Rate Blood Pressure 105/73 O2 Sat by Pulse 98 Oximetry Medical Decision Making - Medical Decision Making 20-year-old male evaluated for psychiatric complaints. Patient was seen by EPS and felt to require inpatient psychiatric evaluation and treatment. - Lab Data Lab Results 07/03/21 Range/Units 17:12 Urine Opiates Screen Not Detected (NotDetected) Ur Oxycodone Screen Not Detected (NotDetected) Urine Methadone Screen Not Detected (NotDetected) Ur Propoxyphene Screen Not Detected (NotDetected) Ur Barbiturates Screen Not Detected (NotDetected) U Tricyclic Antidepress Not Detected (NotDetected) Ur Phencyclidine Scrn Not Detected (NotDetected) Ur Amphetamines Screen Not Detected (NotDetected) U Methamphetamines Scrn Not Detected (NotDetected) U Benzodiazepines Scrn Not Detected (NotDetected) Urine Cocaine Screen Not Detected (NotDetected) U Marijuana (THC) Screen Detected H (NotDetected) Disposition Clinical Impression: Acute psychosis Disposition: ADMITTED IP TO THIS HOSP Condition: Stable Is patient prescribed a controlled substance at d/c from ED?: No Decision to Admit Reason: Admit from EC
[2021-07-03 18:42] LABS: Amphetamine Screen,Urine Not Detected (NotDetected); Barbiturate Screen,Urine Not Detected (NotDetected); Benzodiazepines Screen,Urine Not Detected (NotDetected); Cocaine Screen,Urine Not Detected (NotDetected); Methadone Screen, Urine Not Detected (NotDetected); Opiate Screen,Urine Not Detected (NotDetected); Oxycodone Screen, Urine Not Detected (NotDetected); Phencyclidine Screen,Urine Not Detected (NotDetected); Tricyclic Antidepressant,Urine Not Detected (NotDetected); Urn Cannabinoid Scrn Detected (NotDetected)
[2021-07-03] MEDS ORDERED: MAG HYDROX/AL HYDROX/SIMETH 30 ML CUP PO PRN (19:02)
[2021-07-03] MEDS ORDERED: LORazepam 1 MG TAB PO PRN (19:02)
[2021-07-03] MEDS ORDERED: MAGNESIUM HYDROXIDE 2,400 MG/10 ML CUP PO PRN (19:02)
[2021-07-03] MEDS ORDERED: ACETAMINOPHEN TAB 325 MG TAB PO PRN (19:02)
[2021-07-03] MEDS ORDERED: haloperidoL 5 MG TAB PO PRN (19:11)
[2021-07-03] MEDS ORDERED: LORazepam 2 MG/ML INJ IM PRN (19:11)
[2021-07-03] MEDS ORDERED: HALOPERIDOL LACTATE 5 MG/ML 1 ML VIAL IM PRN (19:12)
[2021-07-04 08:57] LABS: Basophils # (A) 0.1 k/uL (0-0.2); Basophils % (A) 1 %; Eosinophils # (A) 0.2 k/uL (0-0.7); Eosinophils % (A) 2 %; HCT 53.4 % (39.0-53.0); HGB 17.4 gm/dL (13.0-17.5); Lymphocytes # (A) 3.3 k/uL (1.0-4.8); Lymphocytes % (A) 31 %; MCH 29.8 pg (25.0-35.0); MCHC 32.6 g/dL (31.0-37.0); MCV 91.4 fL (80.0-100.0); Mean Platelet Volume 9.1; Monocytes # (A) 0.7 k/uL (0-1.0); Monocytes % (A) 7 %; Neutrophils # (A) 6.1 k/uL (1.3-7.7); Neutrophils % (A) 58 %; Platelet Count 218 k/uL (150-450); RBC 5.84 m/uL (4.30-5.90); RDW 13.1 % (11.5-15.5); WBC 10.6 k/uL (3.8-10.6)
[2021-07-04 09:09] LABS: ALT 28 U/L (4-49); African American GFR (CKD) >90 (>60 ml/min/1.73 sqM); Albumin 4.9 g/dL (3.5-5.0); Anion Gap 13 mmol/L; Blood Urea Nitrogen 15 mg/dL (9-20); Calcium 9.7 mg/dL (8.4-10.2); Carbon Dioxide 19 mmol/L (22-30); Chloride 105 mmol/L (98-107); Glucose 90 mg/dL (74-99); Non-African American GFR(CKD) >90 (>60 ml/min/1.73 sqM); Sodium 137 mmol/L (137-145); Total Bilirubin 0.8 mg/dL (0.2-1.3); Total Protein 7.7 g/dL (6.3-8.2)
[2021-07-04 09:11] LABS: AST 34 U/L (17-59); Alkaline Phosphatase 84 U/L (38-126)
[2021-07-04] MEDS ORDERED: ARIPiprazole IM SYRINGE 400 MG (NO CHARGE) PHARMACY STOCK IM SCH (12:00)
--- NOTE | 2021-07-04 12:47 | P.HP ---
Psychiatric H&P - . H&P Date: 07/04/21 History & Physical: Allergies Allergy/AdvReac Type Severity Reaction Status Date / Time No Known Allergies Allergy Verified 07/03/21 17:10 Vital Signs Temp 99 F 07/04/21 07:05 Pulse 83 07/04/21 07:05 Resp 16 07/03/21 21:06 BP 110/65 07/04/21 07:05 Pulse Ox 97 07/04/21 07:05 Intake & Output 07/03/21 07/04/21 07/04/21 18:59 06:59 18:59 Weight 59.874 kg Laboratory Last Values WBC 10.6 k/uL (3.8-10.6) 07/04/21 07:43 RBC 5.84 m/uL (4.30-5.90) 07/04/21 07:43 Hgb 17.4 gm/dL (13.0-17.5) 07/04/21 07:43 Hct 53.4 % (39.0-53.0) H 07/04/21 07:43 MCV 91.4 fL (80.0-100.0) 07/04/21 07:43 MCH 29.8 pg (25.0-35.0) 07/04/21 07:43 MCHC 32.6 g/dL (31.0-37.0) 07/04/21 07:43 RDW 13.1 % (11.5-15.5) 07/04/21 07:43 Plt Count 218 k/uL (150-450) 07/04/21 07:43 MPV 9.1 07/04/21 07:43 Neutrophils % 58 % 07/04/21 07:43 Lymphocytes % 31 % 07/04/21 07:43 Monocytes % 7 % 07/04/21 07:43 Eosinophils % 2 % 07/04/21 07:43 Basophils % 1 % 07/04/21 07:43 Neutrophils # 6.1 k/uL (1.3-7.7) 07/04/21 07:43 Lymphocytes # 3.3 k/uL (1.0-4.8) 07/04/21 07:43 Monocytes # 0.7 k/uL (0-1.0) 07/04/21 07:43 Eosinophils # 0.2 k/uL (0-0.7) 07/04/21 07:43 Basophils # 0.1 k/uL (0-0.2) 07/04/21 07:43 Sodium 137 mmol/L (137-145) 07/04/21 07:43 Potassium 5.0 mmol/L (3.5-5.1) 07/04/21 07:43 Chloride 105 mmol/L (98-107) 07/04/21 07:43 Carbon Dioxide 19 mmol/L (22-30) L 07/04/21 07:43 Anion Gap 13 mmol/L 07/04/21 07:43 BUN 15 mg/dL (9-20) 07/04/21 07:43 Creatinine 1.09 mg/dL (0.66-1.25) 07/04/21 07:43 Est GFR (CKD-EPI)AfAm >90 (>60 ml/min/1.73 sqM) 07/04/21 07:43 Est GFR (CKD-EPI)NonAf >90 (>60 ml/min/1.73 sqM) 07/04/21 07:43 Glucose 90 mg/dL (74-99) 07/04/21 07:43 Calcium 9.7 mg/dL (8.4-10.2) 07/04/21 07:43 Total Bilirubin 0.8 mg/dL (0.2-1.3) 07/04/21 07:43 AST 34 U/L (17-59) 07/04/21 07:43 ALT 28 U/L (4-49) 07/04/21 07:43 Alkaline Phosphatase 84 U/L (38-126) 07/04/21 07:43 Total Protein 7.7 g/dL (6.3-8.2) 07/04/21 07:43 Albumin 4.9 g/dL (3.5-5.0) 07/04/21 07:43 Triglycerides Cancelled 07/04/21 07:43 Cholesterol Cancelled 07/04/21 07:43 LDL Cholesterol Direct Cancelled 07/04/21 07:43 LDL Cholesterol, Calc Cancelled 07/04/21 07:43 VLDL Cholesterol, Calc Cancelled 07/04/21 07:43 HDL Cholesterol Cancelled 07/04/21 07:43 Cholesterol/HDL Ratio Cancelled 07/04/21 07:43 TSH 0.816 mIU/L (0.465-4.680) 07/04/21 07:43 Urine Opiates Screen Not Detected (NotDetected) 07/03/21 17:12 Ur Oxycodone Screen Not Detected (NotDetected) 07/03/21 17:12 Urine Methadone Screen Not Detected (NotDetected) 07/03/21 17:12 Ur Propoxyphene Screen Not Detected (NotDetected) 07/03/21 17:12 Ur Barbiturates Screen Not Detected (NotDetected) 07/03/21 17:12 U Tricyclic Antidepress Not Detected (NotDetected) 07/03/21 17:12 Ur Phencyclidine Scrn Not Detected (NotDetected) 07/03/21 17:12 Ur Amphetamines Screen Not Detected (NotDetected) 07/03/21 17:12 U Methamphetamines Scrn Not Detected (NotDetected) 07/03/21 17:12 U Benzodiazepines Scrn Not Detected (NotDetected) 07/03/21 17:12 Urine Cocaine Screen Not Detected (NotDetected) 07/03/21 17:12 U Marijuana (THC) Screen Detected (NotDetected) H 07/03/21 17:12 07/04/21 12:33 History of present illness: This patient stated that the he had auditory hallucinations and was hearing voices that were not there. He stated they were telling him to do different things. This patient also has a speech impairment. He can do lipreading and is able to communicate and understand information quite well. He stated his parents wanted him to get checked out. Current medications: He stated he does not know what medications he takes at this time or in the past. Postural psychiatric history: He stated he was admitted to this hospital once before for same reason. He stated about a year ago he started hearing voices and was placed on medication. He stated he does not remember the names of his medications. Substance abuse history: He stated that the he was using the marijuana and he was also arrested for having drug paraphernalia and is on probation at this time. He denies use of alcohol or drugs. Medical history he stated he was diagnosed with her hearing problems when he was 1 years old. He stated he lost his hearing and at that time. He also has articulation problems. Family history: He stated that he lives with his grandparents, mother and 2 brothers. He denied any history of mental illness or suicide in the family. Social history: He stated he grew up with his mother and father and completed 11th grade education. 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 He stated he is not employed at this time. Psychological trauma: He denied any history of physical, emotional or sexual abuse ever. Mental status: This patient is alert and oriented to time place and person. He appears to be of his stated age. He has multiple tattoos. He wasn't wearing his hearing aid. He has psychomotor retardation. His behavior is cooperative and mood is euthymic. He has auditory hallucinations and hears voices and the voices tell him to do something which she cannot comprehend. He denied any history of visual hallucinations. He does not have any delusions. He does not have any loose associations of flight of ideas or any other disorder of thought process. He is able to concentrate on things and his memory for recent and remote wasp is fair. His attention span is fair. He has no insight into his problems and his judgment is impaired. His cognition is intact. Diagnostic impression: Psychotic disorder NOS Speech and hearing impairment Treatment plan: He will be started on a medication to control his voices. He will be encouraged to participate in milieu therapy and activity therapy as scheduled on the unit. He will have ongoing case management.
--- NOTE | 2021-07-04 13:49 | P.CONS ---
History of Present Illness - Reason for Consult Medical clearance - History of Present Illness Pleasant 20-year-old yoanna male admitted for auditory hallucinations. Patient does have speech and hearing problems and patient denied in compensative this time, patient urine drug screen is positive for marijuana. REVIEW OF SYSTEMS: CONSTITUTIONAL: No fever, no malaise, no fatigue. HEENT: No recent visual problems or hearing problems. Denied any sore throat. CARDIOVASCULAR: No chest pain, orthopnea, PND, no palpitations, no syncope. PULMONARY: No shortness of breath, no cough, no hemoptysis. GASTROINTESTINAL: No diarrhea, no nausea, no vomiting, no abdominal pain. NEUROLOGICAL: No headaches, no weakness, no numbness. HEMATOLOGICAL: Denies any bleeding or petechiae. GENITOURINARY: Denies any burning micturition, frequency, or urgency. MUSCULOSKELETAL/RHEUMATOLOGICAL: Denies any joint pain, swelling, or any muscle pain. ENDOCRINE: Denies any polyuria or polydipsia. The rest of the 14-point review of systems is negative. PHYSICAL EXAMINATION: GENERAL: The patient is alert and oriented x3, not in any acute distress. Well developed, well nourished. HEENT: Pupils are round and equally reacting to light. EOMI. No scleral icterus. No conjunctival pallor. Normocephalic, atraumatic. No pharyngeal erythema. No thyromegaly. CARDIOVASCULAR: S1 and S2 present. No murmurs, rubs, or gallops. PULMONARY: Chest is clear to auscultation, no wheezing or crackles. ABDOMEN: Soft, nontender, nondistended, normoactive bowel sounds. No palpable organomegaly. MUSCULOSKELETAL: No joint swelling or deformity. EXTREMITIES: No cyanosis, clubbing, or pedal edema. NEUROLOGICAL: Gross neurological examination did not reveal any focal deficits. SKIN: No rashes. Assessment and plan -Schizophrenia management as per primary service - nicotine use: Counseling was provided -Marijuana use counseling was provided TSH is within normal limits and no further recommendations from medicine perspective we'll sign off at this time if needed call us back 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(s): Deaf Syringomyelia History of Any Multi-Drug Resistant Organisms: None Reported Past Surgical History: No Surgical Hx Reported Additional Past Surgical History / Comment(s): testicular surgery Past Anesthesia/Blood Transfusion Reactions: No Reported Reaction Past Psychological History: Bipolar, Depression, Schizophrenia Smoking Status: Current every day smoker Past Alcohol Use History: None Reported Past Drug Use History: Marijuana, Methamphetamine - Past Family History Mother Family Medical History: Hearing Disorder / Deafness Father Additional Family Medical History / Comment(s): used marijuana Medications and Allergies Home Medications Medication Instructions Recorded Confirmed Type ARIPiprazole IM SYRINGE [Abilify 400 mg IM Q28D 07/03/21 07/03/21 History Maintena Syringe] ARIPiprazole [Abilify] 5 mg PO HS 07/03/21 07/03/21 History Cholecalciferol [Vitamin D3 (125 125 mcg PO DAILY 07/03/21 07/03/21 History Mcg = 5000 Iu)] Loratadine 10 mg PO DAILY 07/03/21 07/03/21 History Propranolol LA [Inderal LA] 60 mg PO DAILY 07/03/21 07/03/21 History Allergies Allergy/AdvReac Type Severity Reaction Status Date / Time No Known Allergies Allergy Verified 07/03/21 17:10 Physical Exam Vitals: Vital Signs Temp Pulse Pulse Resp BP BP Pulse Ox 07/04/21 07:05 99 F 83 110/65 97 07/03/21 21:06 98.1 F 91 16 116/71 07/03/21 15:40 98.2 F 109 H 18 105/73 98 Intake and Output 07/03/21 07/04/21 07/04/21 22:59 06:59 14:59 Other: Weight 59.874 kg Results CBC & Chem 7: 07/04/21 07:43 07/04/21 07:43 Labs: Abnormal Lab Results - Last 24 Hours (Table) 07/03/21 07/04/21 07/04/21 Range/Units 17:12 07:43 07:43 Hct 53.4 H (39.0-53.0) % Carbon Dioxide 19 L (22-30) mmol/L U Marijuana (THC) Screen Detected H (NotDetected)
[2021-07-05] MEDS: NICOTINE 14MG/24HR PATCH TRANSDERM SCH ×2 (08:45→13:25)
--- NOTE | 2021-07-05 11:34 | CT ---
EXAMINATION TYPE: CT brain wo con DATE OF EXAM: 07/05/2021 COMPARISON: CT brain 02/08/2021 HISTORY: Fall, frontal head injury and laceration, pain. CT DLP: 967.8 mGycm. Automated Exposure Control for Dose Reduction was Utilized. TECHNIQUE: CT scan of the head is performed without contrast. FINDINGS: There is no acute intracranial hemorrhage, mass effect, or midline shift identified. The ventricles and sulci are within normal limits in size. The globes are intact and the visualized sin uses are clear. IMPRESSION: No acute intracranial hemorrhage, mass effect, or midline shift is seen.
--- NOTE | 2021-07-05 12:12 | P.PN ---
Progress Note - Text Progress Note Date: 07/05/21 Interval History: Patient was seen in the hallways and was directable and agreeable to speak with director underwriter sales. He was bleeding from his a full head and the would not tell me where he hit his head. He will be sent for computed tomography scan and will also be placed on neuro check every 4 hours for 24 hours. Patient continues to be withdrawn and isolative and stays to himself. At this time patient denies any suicidal or homical ideations, intent or plan. Patient denies any auditory, visual hallucinations and denies any paranoia or delusions. Patient denies any side effects from the medications and has been compliant with meds. Mental Status Exam: General Appearance: Patient appears to be stated age is alert, directable, and cooperative. Behavior: Patient is calmly seated without any agitated behavior. Speech: Patient's speech is fluent and nonpressured. Mood/Affect: Mood is improving mildly, affect is congruent and constricted. Suicidality/Homicidality: Patient denies having any suicidal or homicidal ideation intent or plan. Perceptions: Patient denies any visual hallucinations and denies any auditory hallucinations Though content/process: There is no evidence of any delusional thought content and thought process is linear and goal-directed. Memory and concentration: AOX3, grossly intact for the purposes of this session Judgment and insight: Improving mildly Assessment This patient apparently hit his head and caused himself to bleed. He will be placed on one-on-one supervision. Plan: -Patient continues to meet criteria for inpatient psychiatric admission for symptom stabilization and safety. -Medications: Continue medication as before. -When necessary Ativan and Haldol for agitation/aggression. -SW on board for discharge planning. Encouraged the patient to participate in milieu.
[2021-07-05 13:26] LABS: Chol/HDL Ratio 3.43 Ratio; LDL Cholesterol,Calculated 47.6 mg/dL (0.0-131.0)
[2021-07-05] MEDS ORDERED: LIDOCAINE 1% INJ 10MG/ML (10 ML MDV) SQ ONE (14:03)
[2021-07-05] MEDS ORDERED: LIDOCAINE 1% INJ 10MG/ML (20 ML MDV) SQ ONE (14:15)
--- NOTE | 2021-07-05 15:44 | P.GSCN ---
History of Present Illness Consult date: 07/05/21 Reason for Consult: Fall from standing, 2 cm forehead laceration History of present illness: Patient is a 20-year-old gentleman presently in the inpatient psychiatric unit at [facility] for auditory hallucinations. He has history of schizophrenia and deafness. He is verbal and able to read lips and communicates without any difficulty. Apparently he also has waxing and waning issues with vertigo. Today he felt somewhat dizzy and fell forward striking his forehead on the Meurer in his room. There was no loss of consciousness. Patient's not maintained on any manner of antiplatelet or anticoagulant medications. He is comfortable presently. Surgical consultation was requested for laceration repair. A computed tomography scan of the head was obtained showing no acute pathology, no fracture no intracranial bleed. Review of Systems All systems: negative - Constitutional Reports as per HPI 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(s): Deaf Syringomyelia History of Any Multi-Drug Resistant Organisms: None Reported Past Surgical History: No Surgical Hx Reported Additional Past Surgical History / Comment(s): testicular surgery Past Anesthesia/Blood Transfusion Reactions: No Reported Reaction Past Psychological History: Bipolar, Depression, Schizophrenia Smoking Status: Current every day smoker Past Alcohol Use History: None Reported Past Drug Use History: Marijuana, Methamphetamine - Past Family History Mother Family Medical History: Hearing Disorder / Deafness Father Additional Family Medical History / Comment(s): used marijuana Medications and Allergies Home Medications Medication Instructions Recorded Confirmed Type ARIPiprazole IM SYRINGE [Abilify 400 mg IM Q28D 07/03/21 07/03/21 History Maintena Syringe] ARIPiprazole [Abilify] 5 mg PO HS 07/03/21 07/03/21 History Cholecalciferol [Vitamin D3 (125 125 mcg PO DAILY 07/03/21 07/03/21 History Mcg = 5000 Iu)] Loratadine 10 mg PO DAILY 07/03/21 07/03/21 History Propranolol LA [Inderal LA] 60 mg PO DAILY 07/03/21 07/03/21 History Allergies Allergy/AdvReac Type Severity Reaction Status Date / Time No Known Allergies Allergy Verified 07/03/21 17:10 Surgical - Exam Osteopathic Statement: *. No significant issues noted on an osteopathic structural exam other than those noted in the History and Physical/Consult. Vital Signs Temp Pulse Resp BP Pulse Ox 98.2 F 109 H 18 105/73 98 07/03/21 15:40 07/03/21 15:40 07/03/21 15:40 07/03/21 15:40 07/03/21 15:40 - General well developed, well nourished, no distress - Eyes PERRL, normal ocular movement - ENT Patient is deaf - Respiratory normal expansion, normal respiratory effort, clear to auscultation - Cardiovascular Rhythm: regular - Abdomen Abdomen: soft, non tender - Neurologic normal coordination - Musculoskeletal Patient has a 2 cm full-thickness linear laceration of the forehead without active bleeding. normal gait, normal posture - Psychiatric oriented to time, oriented to person, oriented to place, speech is normal Results - Labs 07/04/21 07:43 07/04/21 07:43 Abnormal Lab Results - Last 24 Hours (Table) 07/05/21 Range/Units 07:10 Triglycerides 201.00 H (0.00-149.00) mg/dL VLDL Cholesterol, Calc 40.20 H (5.00-40.00) mg/dL HDL Cholesterol 36.20 L (40.00-60.00) mg/dL Diabetes panel 07/05/21 07/05/21 Range/Units 07:10 07:10 Hemoglobin A1c 5.2 (0.0-6.0) % Triglycerides 201.00 H (0.00-149.00) mg/dL HDL Cholesterol 36.20 L (40.00-60.00) mg/dL Assessment and Plan Assessment: 23-year-old gentleman status post fall from standing striking his forehead on a mirror, antecedent issues with vertigo, chronic problems with the same. A ssociated 2 cm full-thickness laceration of the forehead without active bleeding No loss of consciousness. No history of oral anticoagulants or antiplatelet medications. Computed tomography scan of the head negative for acute pathology. No evidence of oral or dental trauma or other injury on exam. Plan: Patient's laceration was repaired with interrupted 3-0 nylon suture after irrigating the wound with sterile saline and administering local anesthetic with 1% lidocaine plain solution. Okay to shower. Keep the area dressed with topical bacitracin twice daily and as needed. Sutures should be removed in 7-10 days. Time with Patient: Greater than 30
--- NOTE | 2021-07-05 15:48 | P.PCN ---
Date of Procedure: 07/05/21 Preoperative Diagnosis: Posttraumatic 2 cm laceration of the forehead Postoperative Diagnosis: Posttraumatic 2 cm laceration of forehead Procedure(s) Performed: Simple suture repair of 2 cm laceration of the forehead with interrupted 3-0 nylon, wound irrigation and local anesthesia Anesthesia: local (1% lidocaine plain injection) Surgeon: Joshua Mcbride Estimated Blood Loss (ml): 5 Pathology: none sent Condition: stable Disposition: no change Indications for Procedure: Patient is a 20-year-old gentleman with history of deafness and paroxysmal vertigo who felt dizzy today and fell forward striking his head on a mirror and the inpatient psychiatric unit where he is being observed for auditory hallucinations. No history of oral anticoagulants or any platelets, no reported loss of consciousness. A computed tomography scan of the head was obtained showing no acute pathology. He is in need of a suture repair and gave informed consent for the same. Operative Findings: As above Description of Procedure: Patient was placed in the upright seated position and the wound was irrigated with 30 mL sterile saline. Wound edges were anesthetized with 1% lidocaine plain solution and the vertical laceration repaired with 4 interrupted 3-0 nylon simple sutures. Hemostasis was excellent, patient tolerated the procedure well. Sutures should be removed in 7-10 days. He may shower as normal. Keep the wound dressed with topical bacitracin twice daily and as needed.
[2021-07-06] MEDS: BACITRACIN OINT 1 EACH PACKET TOPICAL SCH ×2 (08:57→20:25)
[2021-07-06] MEDS: NICOTINE 14MG/24HR PATCH TRANSDERM SCH (08:57)
--- NOTE | 2021-07-06 12:07 | P.PN ---
Progress Note - Text Progress Note Date: 07/06/21 Interval History: Patient was seen resting in bed and was directable and agreeable to speak with the telegraphic typewriter repairer in his room. At bedside is the patient's one-to-one sitter. The patient is unable to recall the events leading up this hospitalization. He does not recall expressing auditory hallucinations paranoid thoughts prior to this hospitalization. When confronted if he was having any kind of physical or violent outbursts at home, the patient is unable to recall this as well. He did receive the Abilify maintena 2 days ago and is tolerating the medication well. He is not endorsing any significant issues regarding his fall. He states that he felt a lack of balance when going up from the bed to the bathroom. He denies any lightheadedness or dizziness at this time. The patient is agreeable to starting Lamictal for mood stability. He is otherwise tolerating his m edications well. He reports no suicidal or homicidal ideation, intention, and/or plan. He denies any auditory or visual hallucinations. He reports no paranoia or other delusions at this time. Mental Status Exam: General Appearance: Patient appears to be stated age is alert, directable, and cooperative. Behavior: Patient is calmly seated without any agitated behavior. Speech: Patient's speech is nonspontaneous, low in volume. Patient is hard of hearing and uses hearing aids. Mood/Affect: Mood is improving mildly, affect is congruent and constricted. Suicidality/Homicidality: Patient denies having any suicidal or homicidal ideation intent or plan. Perceptions: Patient denies any visual hallucinations and denies any auditory hallucinations Though content/process: There is no evidence of any delusional thought content and thought process is linear and goal-directed. Memory and concentration: AOX3, grossly intact for the purposes of this session Judgment and insight: Improving mildly Vital Signs Temp 97.7 F 07/06/21 00:41 Pulse 83 07/06/21 00:41 Resp 14 07/05/21 10:21 BP 126/67 07/06/21 00:41 Pulse Ox 100 07/05/21 10:21 Intake & Output 07/05/21 07/06/21 07/06/21 18:59 06:59 18:59 Weight 59.3 kg Laboratory Results - Last 24 Hours 07/05/21 07/05/21 07:10 07:[address] Glu mg/dL 102 Hemoglobin A1c 5.2 Triglycerides 201.00 H Cholesterol 124.00 LDL Cholesterol, Calc 47.6 VLDL Cholesterol, Calc 40.20 H HDL Cholesterol 36.20 L Cholesterol/HDL Ratio 3.43 Assessment Psychosis, unspecified Cannabis use disorder Plan: -Patient continues to meet criteria for inpatient psychiatric admission for symptom stabilization and safety. Patient has signed adult voluntary form and medication consent and was placed in patient's chart. -Medications: Abilify maintena 400 mg IM was administered on 07/04/2021 for psychosis and mood stabilization. Start Lamictal 25 mg by mouth at bedtime for mood stabilization -When necessary Ativan and Geodon for agitation/aggression. -NRT - nicotine patch -SW on board for discharge planning. Encouraged the patient to participate in milieu.
[2021-07-06] MEDS: lamoTRIgine 25 MG TAB PO SCH (20:24)
[2021-07-07] MEDS: BACITRACIN OINT 1 EACH PACKET TOPICAL SCH ×2 (08:20→20:55)
[2021-07-07] MEDS: NICOTINE 14MG/24HR PATCH TRANSDERM SCH (08:20)
--- NOTE | 2021-07-07 11:33 | P.DS ---
Providers Date of admission: 07/03/21 19:01 Expected date of discharge: 07/07/21 Attending physician: Jose Juan Ramirez MD Consults: 07/03/21 19:02 Consult Physician Routine Consulting Provider: Evangelista Gilman Consult Reason/Comments: medical management Do you want consulting provider notified?: Yes 07/05/21 13:48 Consult Physician Stat Consulting Provider: Joshua Mcbride Consult Reason/Comments: Head laceration/ sutures Do you want consulting provider notified?: Yes Primary care physician: [facility] - [facility], [place] Diagnosis(es) (1) Acute psychosis Current Visit: Yes Status: Acute (2) Cannabis abuse Current Visit: Yes Status: Chronic Priority: Medium Hospital Course: Admission HPI: Initial psychiatric evaluation was completed by Dr. Duffy on 07/04/2021 who wrote: "History of present illness: This patient stated that the he had auditory hallucinations and was hearing voices that were not there. He stated they were telling him to do different things. This patient also has a speech impairment. He can do lipreading and is able to communicate and understand information quite well. He stated his parents wanted him to get checked out. Current medications: He stated he does not know what medications he takes at this time or in the past. Postural psychiatric history: He stated he was admitted to this hospital once before for same reason. He stated about a year ago he started hearing voices and was placed on medication. He stated he does not remember the names of his medications. Substance abuse history: He stated that the he was using the marijuana and he was also arrested for having drug paraphernalia and is on probation at this time. He denies use of alcohol or drugs. Medical history he stated he was diagnosed with her hearing problems when he was 1 years old. He stated he lost his hearing and at that time. He also has articulation problems. Family history: He stated that he lives with his grandparents, mother and 2 b rothers. He denied any history of mental illness or suicide in the family. Social history: He stated he grew up with his mother and father and completed 11th grade education. 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 He stated he is not employed at this time. Psychological trauma: He denied any history of physical, emotional or sexual abuse ever." Hospital course: Upon admission to the unit patient was initially noted to have psychomotor retardation however was cooperative with a euthymic mood. The patient is restarted on his Abilify maintena 400 mg IM. Shortly after his admission, the following day, the patient had a significant fall which led to a laceration on his head. He was sent for a computed tomography scan was placed on neuro checks. Despite the fall, the patient reported no significant issues with concerns or himself. He was placed on one-to-one supervision for risk of falls. When evaluated by this provider, the patient was on a one-to-one supervision and reported no significant issues or concerns to this provider. He has been adherent with his medications and was open to starting Lamictal to aid with mood stability. This provider was informed that the patient's family was concerned for his aggressive behaviors towards other family members, especially in the context of drug abuse. The patient was counseled in length and the importance of decreasing his drug abuse however did not appear interested in going to inpatient substance abuse rehabilitation when this option was presented to him by this provider. Over the course of the hospital physician, the patient displayed no significant aggressive behaviors and was calm and cooperative with staff and peers. He was adherent with his medications and reported no significant side effects. He reported no suicidal or homicidal ideation, intention, and/or plan. On the day of discharge, the patient is not reporting any significant concerns at this time. He expresses no desire to harm others and was counseled at length on importance of abstaining from drugs, especially methamphetamines. The patient has been adherent with his medications and has been tolerating them well. The patient was counseled on the importance of medication adherence and appropriate outpatient follow-up. Furthermore, the patient was counseled on the importance of abstaining from drugs and alcohol as they may contribute to his agitated behaviors which she is concerning to his family. The patient was offered inpatient substance abuse rehabilitation however declined. Prior to discharge, family meeting will be arranged by nursing home social worker to answer questions and ensure safety. Mental status exam: General Appearance: Patient appears to be stated age is alert, pleasant, and cooperative. Patient is in no acute distress and has fair hygiene and grooming Behavior: Patient is calmly seated without any agitated behavior. Eye contact is appropriate. Speech: Patient's speech is fluent and nonpressured. Low in volume, nonspontaneous, monotone. Patient is hard of hearing and uses a hearing aid. Mood/Affect: Patient reports their mood is "doing okay", affect is congruent and euthymic. Suicidality/Homicidality: Patient denies having any suicidal or homicidal ideation intent or plan. Perceptions: Patient denies any auditory or visual hallucinations. Though content/process: There is no evidence of any delusional thought content and thought process is linear and goal-directed. Memory and concentration: AOX3, grossly intact for the purposes of this session. Can spell "WORLD" backwards correctly. Judgment and insight: Improved with guarded prognosis Vital Signs Temp 98.1 F 07/07/21 06:01 Pulse 70 07/07/21 06:01 Resp 14 07/07/21 06:01 BP 128/71 07/07/21 06:01 Pulse Ox 100 07/05/21 10:21 Impression: Acute psychosis, likely secondary to substance abuse Cannabis use disorder Plan: -Continue with discharge today as patient has improved and stabilized psychiatrically and is not currently an imminent threat to himself and/or others. Patient will remain at chronically elevated risk for harm to self and/or others due to his impulsivity and polysubstance abuse. -Continue medications: Abilify maintena 400 mg IM was administered on 07/04/2021. Next dose due on 08/01/2021 for psychosis. Lamictal 25 mg by mouth at bedtime for mood stabilization -Patient was counseled on the need for medication compliance and appropriate follow-up at mental health and also primary care for medical issues. Patient verbalized understanding and agreed. -Social work to arrange for and conduct family meeting to ensure safety upon discharge and answer any questions/concerns. Social work also to arrange for patients follow up appointments with [facility] for psychiatric care along with follow up with primary care provider. -Patient counseled on abstaining from recreational drugs and marijuana and alcohol. Was informed/educated on the adverse effects on their physical and mental health. Patient verbally agreed and understood. Patient was offered substance abuse treatment however declined at this time. -Patient was instructed to return to the hospital or seek immediate medical care if their psychiatric or medical symptoms do worsen or reoccur. -Psychoeducation and supportive therapy provided to patient. Risks and benefits of pharmacological treatment versus the risks and benefits of nontreatment weight and discussed. Informed consent discussion held. Common side effects of psychotropics discussed such as, but not limited to headache, GI disturbance, sexual dysfunction, movement disorders, sedation, and orthostatic hypotension. Life threatening and blackbox warnings of prescribed medications also discussed. Potential risks of operating a vehicle or heavy machinery discussed with patient at length. Advised on importance of compliance and a reliable and responsible manner. Patient advised to review FDA consumer labeling of all medications prior to taking. Patient verbalized understanding of potential risks, and agrees with current treatment plan. Patient advised to medically contact physician/emergency personnel if any acute changes in condition occur. Allergies Allergy/AdvReac Type Severity Reaction Status Date / Time No Known Allergies Allergy Verified 07/03/21 17:10 Laboratory Results WBC 10.6 k/uL (3.8-10.6) 07/04/21 07:43 RBC 5.84 m/uL (4.30-5.90) 07/04/21 07:43 Hgb 17.4 gm/dL (13.0-17.5) 07/04/21 07:43 Hct 53.4 % (39.0-53.0) H 07/04/21 07:43 MCV 91.4 fL (80.0-100.0) 07/04/21 07:43 MCH 29.8 pg (25.0-35.0) 07/04/21 07:43 MCHC 32.6 g/dL (31.0-37.0) 07/04/21 07:43 RDW 13.1 % (11.5-15.5) 07/04/21 07:43 Plt Count 218 k/uL (150-450) 07/04/21 07:43 MPV 9.1 07/04/21 07:43 Neutrophils % 58 % 07/04/21 07:43 Lymphocytes % 31 % 07/04/21 07:43 Monocytes % 7 % 07/04/21 07:43 Eosinophils % 2 % 07/04/21 07:43 Basophils % 1 % 07/04/21 07:43 Neutrophils # 6.1 k/uL (1.3-7.7) 07/04/21 07:43 Lymphocytes # 3.3 k/uL (1.0-4.8) 07/04/21 07:43 Monocytes # 0.7 k/uL (0-1.0) 07/04/21 07:43 Eosinophils # 0.2 k/uL (0-0.7) 07/04/21 07:43 Basophils # 0.1 k/uL (0-0.2) 07/04/21 07:43 Sodium 137 mmol/L (137-145) 07/04/21 07:43 Potassium 5.0 mmol/L (3.5-5.1) 07/04/21 07:43 Chloride 105 mmol/L (98-107) 07/04/21 07:43 Carbon Dioxide 19 mmol/L (22-30) L 07/04/21 07:43 Anion Gap 13 mmol/L 07/04/21 07:43 BUN 15 mg/dL (9-20) 07/04/21 07:43 Creatinine 1.09 mg/dL (0.66-1.25) 07/04/21 07:43 Est GFR (CKD-EPI)AfAm >90 (>60 ml/min/1.73 sqM) 07/04/21 07:43 Est GFR (CKD-EPI)NonAf >90 (>60 ml/min/1.73 sqM) 07/04/21 07:43 Glucose 90 mg/dL (74-99) 07/04/21 07:[address] Glu mg/dL 102 07/05/21 07:10 Hemoglobin A1c 5.2 % (0.0-6.0) 07/05/21 07:10 Calcium 9.7 mg/dL (8.4-10.2) 07/04/21 07:43 Total Bilirubin 0.8 mg/dL (0.2-1.3) 07/04/21 07:43 AST 34 U/L (17-59) 07/04/21 07:43 ALT 28 U/L (4-49) 07/04/21 07:43 Alkaline Phosphatase 84 U/L (38-126) 07/04/21 07:43 Total Protein 7.7 g/dL (6.3-8.2) 07/04/21 07:43 Albumin 4.9 g/dL (3.5-5.0) 07/04/21 07:43 Triglycerides 201.00 mg/dL (0.00-149.00) H 07/05/21 07:10 Cholesterol 124.00 mg/dL (0.00-200.00) 07/05/21 07:10 LDL Cholesterol Direct Cancelled 07/04/21 07:43 LDL Cholesterol, Calc 47.6 mg/dL (0.0-131.0) 07/05/21 07:10 VLDL Cholesterol, Calc 40.20 mg/dL (5.00-40.00) H 07/05/21 07:10 HDL Cholesterol 36.20 mg/dL (40.00-60.00) L 07/05/21 07:10 Cholesterol/HDL Ratio 3.43 Ratio 07/05/21 07:10 TSH 0.816 mIU/L (0.465-4.680) 07/04/21 07:43 Urine Opiates Screen Not Detected (NotDetected) 07/03/21 17:12 Ur Oxycodone Screen Not Detected (NotDetected) 07/03/21 17:12 Urine Methadone Screen Not Detected (NotDetected) 07/03/21 17:12 Ur Propoxyphene Screen Not Detected (NotDetected) 07/03/21 17:12 Ur Barbiturates Screen Not Detected (NotDetected) 07/03/21 17:12 U Tricyclic Antidepress Not Detected (NotDetected) 07/03/21 17:12 Ur Phencyclidine Scrn Not Detected (NotDetected) 07/03/21 17:12 Ur Amphetamines Screen Not Detected (NotDetected) 07/03/21 17:12 U Methamphetamines Scrn Not Detected (NotDetected) 07/03/21 17:12 U Benzodiazepines Scrn Not Detected (NotDetected) 07/03/21 17:12 Urine Cocaine Screen Not Detected (NotDetected) 07/03/21 17:12 U Marijuana (THC) Screen Detected (NotDetected) H 07/03/21 17:12 Patient Condition at Discharge: Stable Plan - Discharge Summary New Discharge Prescriptions: New ARIPiprazole IM SYRINGE [Abilify Maintena Syringe] 400 mg IM Q28D #1 Nicotine 14Mg/24Hr Patch [Habitrol] 1 patch TRANSDERM DAILY 30 Days patch lamoTRIgine [LaMICtal] 25 mg PO HS 30 Days tab Continue Cholecalciferol [Vitamin D3 (125 Mcg = 5000 Iu)] 125 mcg PO DAILY Propranolol LA [Inderal LA] 60 mg PO DAILY Loratadine 10 mg PO DAILY Discontinued ARIPiprazole [Abilify] 5 mg PO HS ARIPiprazole IM SYRINGE [Abilify Maintena Syringe] 400 mg IM Q28D Discharge Medication List Cholecalciferol [Vitamin D3 (125 Mcg = 5000 Iu)] 125 mcg PO DAILY 07/03/21 [History] Loratadine 10 mg PO DAILY 07/03/21 [History] Propranolol LA [Inderal LA] 60 mg PO DAILY 07/03/21 [History] ARIPiprazole IM SYRINGE [Abilify Maintena Syringe] 400 mg IM Q28D #1 07/07/21 [Rx] Nicotine 14Mg/24Hr Patch [Habitrol] 1 patch TRANSDERM DAILY 30 Days patch 07/07/21 [Rx] lamoTRIgine [LaMICtal] 25 mg PO HS 30 Days tab 07/07/21 [Rx] Follow up Appointment(s)/Referral(s): [facility] [Outside] - 07/10/21 11:00 am (07/10/2021 11:00AM - 11:15AM GERRY TORRES 07/10/2021 11:30AM - 12:30PM Genie Sial 07/10/2021 12:30PM - 12:45PM GERRY TORRES ) [facility] [Primary Care Provider] - 1-2 days Activity/Diet/Wound Care/Special Instructions: Activity and diet as tolerated. Avoid the use of street drugs and alcohol. Take all medications as prescribed. When you are in need of refills on your medications please contact your medical provider and/or outpatient psychiatrist to have this done. Please go to scheduled outpatient appointment for aftercare treatment. If symptoms return or become worse, call the crisis line at and/or go to the nearest emergency room for evaluation
[2021-07-07] MEDS: lamoTRIgine 25 MG TAB PO SCH (20:55)
[2021-07-08 07:12] VITALS: BP 120/64; PULSE 77; RESP 16; TEMP 98
[2021-07-08] MEDS: NICOTINE 14MG/24HR PATCH TRANSDERM SCH (08:28)
[2021-07-08] MEDS: BACITRACIN OINT 1 EACH PACKET TOPICAL SCH (08:28)
--- NOTE | 2021-07-08 11:00 | P.DS ---
Providers Date of admission: 07/03/21 19:01 Expected date of discharge: 07/08/21 Attending physician: Jose Juan Ramirez MD Consults: 07/03/21 19:02 Consult Physician Routine Consulting Provider: Evangelista Gilman Consult Reason/Comments: medical management Do you want consulting provider notified?: Yes 07/05/21 13:48 Consult Physician Stat Consulting Provider: Joshua Mcbride Consult Reason/Comments: Head laceration/ sutures Do you want consulting provider notified?: Yes Primary care physician: [facility] Diagnosis(es) (1) Acute psychosis Current Visit: Yes Status: Acute (2) Cannabis abuse Current Visit: Yes Status: Chronic Priority: Medium Hospital Course: Admission HPI: Initial psychiatric evaluation was completed by Dr. Duffy on 07/04/2021 who wrote: "History of present illness: This patient stated that the he had auditory hallucinations and was hearing voices that were not there. He stated they were telling him to do different things. This patient also has a speech impairment. He can do lipreading and is able to communicate and understand information quite well. He stated his parents wanted him to get checked out. Current medications: He stated he does not know what medications he takes at this time or in the past. Postural psychiatric history: He stated he was admitted to this hospital once before for same reason. He stated about a year ago he started hearing voices and was placed on medication. He stated he does not remember the names of his medications. Substance abuse history: He stated that the he was using the marijuana and he was also arrested for having drug paraphernalia and is on probation at this time. He denies use of alcohol or drugs. Medical history he stated he was diagnosed with her hearing problems when he was 1 years old. He stated he lost his hearing and at that time. He also has articulation problems. Family history: He stated that he lives with his grandparents, mother and 2 b rothers. He denied any history of mental illness or suicide in the family. Social history: He stated he grew up with his mother and father and completed 11th grade education. 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 He stated he is not employed at this time. Psychological trauma: He denied any history of physical, emotional or sexual abuse ever." Hospital course: Upon admission to the unit patient was initially noted to have psychomotor retardation however was cooperative with a euthymic mood. The patient is restarted on his Abilify maintena 400 mg IM. Shortly after his admission, the following day, the patient had a significant fall which led to a laceration on his head. He was sent for a computed tomography scan was placed on neuro checks. Despite the fall, the patient reported no significant issues with concerns or himself. He was placed on one-to-one supervision for risk of falls. When evaluated by this provider, the patient was on a one-to-one supervision and reported no significant issues or concerns to this provider. He has been adherent with his medications and was open to starting Lamictal to aid with mood stability. This provider was informed that the patient's family was concerned for his aggressive behaviors towards other family members, especially in the context of drug abuse. The patient was counseled in length and the importance of decreasing his drug abuse however did not appear interested in going to inpatient substance abuse rehabilitation when this option was presented to him by this provider. Over the course of the hospital physician, the patient displayed no significant aggressive behaviors and was calm and cooperative with staff and peers. He was adherent with his medications and reported no significant side effects. He reported no suicidal or homicidal ideation, intention, and/or plan. On the day of discharge, the patient is not reporting any significant concerns at this time. He expresses no desire to harm others and was counseled at length on importance of abstaining from drugs, especially methamphetamines. The patient has been adherent with his medications and has been tolerating them well. The patient was counseled on the importance of medication adherence and appropriate outpatient follow-up. Furthermore, the patient was counseled on the importance of abstaining from drugs and alcohol as they may contribute to his agitated behaviors which she is concerning to his family. The patient was offered inpatient substance abuse rehabilitation however declined. Prior to discharge, family meeting will be arranged by forensic social worker to answer questions and ensure safety. It was clarified with [facility] that the patient is currently under a mental health court order and that part of the terms for his probation is to contine with treatment with [facility] for rehab. Mental status exam: General Appearance: Patient appears to be stated age is alert, pleasant, and cooperative. Patient is in no acute distress and has fair hygiene and grooming Behavior: Patient is calmly seated without any agitated behavior. Eye contact is appropriate. Speech: Patient's speech is fluent and nonpressured. Low in volume, nonspontaneous, monotone. Patient is hard of hearing and uses a hearing aid. Mood/Affect: Patient reports their mood is "doing okay", affect is congruent and euthymic. Suicidality/Homicidality: Patient denies having any suicidal or homicidal ideation intent or plan. Perceptions: Patient denies any auditory or visual hallucinations. Though content/process: There is no evidence of any delusional thought content and thought process is linear and goal-directed. Memory and concentration: AOX3, grossly intact for the purposes of this session. Can spell "WORLD" backwards correctly. Judgment and insight: Improved with guarded prognosis Impression: Acute psychosis, likely secondary to substance abuse Cannabis use disorder Plan: -Continue with discharge today as patient has improved and stabilized psychiatrically and is not currently an imminent threat to himself and/or others. Patient will remain at chronically elevated risk for harm to self and/or others due to his impulsivity and polysubstance abuse. -Continue medications: Abilify maintena 400 mg IM was administered on 07/04/2021. Next dose due on 08/01/2021 for psychosis. Lamictal 25 mg by mouth at bedtime for mood stabilization -Patient was counseled on the need for medication compliance and appropriate follow-up at mental health and also primary care for medical issues. Patient verbalized understanding and agreed. -Social work to arrange for and conduct family meeting to ensure safety upon discharge and answer any questions/concerns. Social work also to arrange for patients follow up appointments with [facility] for psychiatric care along with follow up with primary care provider. -Patient counseled on abstaining from recreational drugs and marijuana and alcohol. Was informed/educated on the adverse effects on their physical and mental health. Patient verbally agreed and understood. Patient will be going to [facility] today for substance abuse rehab. -Patient was instructed to return to the hospital or seek immediate medical care if their psychiatric or medical symptoms do worsen or reoccur. -Psychoeducation and supportive therapy provided to patient. Risks and benefits of pharmacological treatment versus the risks and benefits of nontreatment weight and discussed. Informed consent discussion held. Common side effects of psychotropics discussed such as, but not limited to headache, GI disturbance, se xual dysfunction, movement disorders, sedation, and orthostatic hypotension. Life threatening and blackbox warnings of prescribed medications also discussed. Potential risks of operating a vehicle or heavy machinery discussed with patient at length. Advised on importance of compliance and a reliable and responsible manner. Patient advised to review FDA consumer labeling of all medications prior to taking. Patient verbalized understanding of potential risks, and agrees with current treatment plan. Patient advised to medically contact physician/emergency personnel if any acute changes in condition occur. Vital Signs Temp 98 F 07/08/21 06:30 Pulse 77 07/08/21 06:30 Resp 16 07/08/21 06:30 BP 120/64 07/08/21 06:30 Pulse Ox 100 07/05/21 10:21 Allergies Allergy/AdvReac Type Severity Reaction Status Date / Time No Known Allergies Allergy Verified 07/03/21 17:10 Laboratory Results WBC 10.6 k/uL (3.8-10.6) 07/04/21 07:43 RBC 5.84 m/uL (4.30-5.90) 07/04/21 07:43 Hgb 17.4 gm/dL (13.0-17.5) 07/04/21 07:43 Hct 53.4 % (39.0-53.0) H 07/04/21 07:43 MCV 91.4 fL (80.0-100.0) 07/04/21 07:43 MCH 29.8 pg (25.0-35.0) 07/04/21 07:43 MCHC 32.6 g/dL (31.0-37.0) 07/04/21 07:43 RDW 13.1 % (11.5-15.5) 07/04/21 07:43 Plt Count 218 k/uL (150-450) 07/04/21 07:43 MPV 9.1 07/04/21 07:43 Neutrophils % 58 % 07/04/21 07:43 Lymphocytes % 31 % 07/04/21 07:43 Monocytes % 7 % 07/04/21 07:43 Eosinophils % 2 % 07/04/21 07:43 Basophils % 1 % 07/04/21 07:43 Neutrophils # 6.1 k/uL (1.3-7.7) 07/04/21 07:43 Lymphocytes # 3.3 k/uL (1.0-4.8) 07/04/21 07:43 Monocytes # 0.7 k/uL (0-1.0) 07/04/21 07:43 Eosinophils # 0.2 k/uL (0-0.7) 07/04/21 07:43 Basophils # 0.1 k/uL (0-0.2) 07/04/21 07:43 Sodium 137 mmol/L (137-145) 07/04/21 07:43 Potassium 5.0 mmol/L (3.5-5.1) 07/04/21 07:43 Chloride 105 mmol/L (98-107) 07/04/21 07:43 Carbon Dioxide 19 mmol/L (22-30) L 07/04/21 07:43 Anion Gap 13 mmol/L 07/04/21 07:43 BUN 15 mg/dL (9-20) 07/04/21 07:43 Creatinine 1.09 mg/dL (0.66-1.25) 07/04/21 07:43 Est GFR (CKD-EPI)AfAm >90 (>60 ml/min/1.73 sqM) 07/04/21 07:43 Est GFR (CKD-EPI)NonAf >90 (>60 ml/min/1.73 sqM) 07/04/21 07:43 Glucose 90 mg/dL (74-99) 07/04/21 07:[address] Glu mg/dL 102 07/05/21 07:10 Hemoglobin A1c 5.2 % (0.0-6.0) 07/05/21 07:10 Calcium 9.7 mg/dL (8.4-10.2) 07/04/21 07:43 Total Bilirubin 0.8 mg/dL (0.2-1.3) 07/04/21 07:43 AST 34 U/L (17-59) 07/04/21 07:43 ALT 28 U/L (4-49) 07/04/21 07:43 Alkaline Phosphatase 84 U/L (38-126) 07/04/21 07:43 Total Protein 7.7 g/dL (6.3-8.2) 07/04/21 07:43 Albumin 4.9 g/dL (3.5-5.0) 07/04/21 07:43 Triglycerides 201.00 mg/dL (0.00-149.00) H 07/05/21 07:10 Cholesterol 124.00 mg/dL (0.00-200.00) 07/05/21 07:10 LDL Cholesterol Direct Cancelled 07/04/21 07:43 LDL Cholesterol, Calc 47.6 mg/dL (0.0-131.0) 07/05/21 07:10 VLDL Cholesterol, Calc 40.20 mg/dL (5.00-40.00) H 07/05/21 07:10 HDL Cholesterol 36.20 mg/dL (40.00-60.00) L 07/05/21 07:10 Cholesterol/HDL Ratio 3.43 Ratio 07/05/21 07:10 TSH 0.816 mIU/L (0.465-4.680) 07/04/21 07:43 Urine Opiates Screen Not Detected (NotDetected) 07/03/21 17:12 Ur Oxycodone Screen Not Detected (NotDetected) 07/03/21 17:12 Urine Methadone Screen Not Detected (NotDetected) 07/03/21 17:12 Ur Propoxyphene Screen Not Detected (NotDetected) 07/03/21 17:12 Ur Barbiturates Screen Not Detected (NotDetected) 07/03/21 17:12 U Tricyclic Antidepress Not Detected (NotDetected) 07/03/21 17:12 Ur Phencyclidine Scrn Not Detected (NotDetected) 07/03/21 17:12 Ur Amphetamines Screen Not Detected (NotDetected) 07/03/21 17:12 U Methamphetamines Scrn Not Detected (NotDetected) 07/03/21 17:12 U Benzodiazepines Scrn Not Detected (NotDetected) 07/03/21 17:12 Urine Cocaine Screen Not Detected (NotDetected) 07/03/21 17:12 U Marijuana (THC) Screen Detected (NotDetected) H 07/03/21 17:12 Patient Condition at Discharge: Stable Plan - Discharge Summary New Discharge Prescriptions: New ARIPiprazole IM SYRINGE [Abilify Maintena Syringe] 400 mg IM Q28D #1 Nicotine 14Mg/24Hr Patch [Habitrol] 1 patch TRANSDERM DAILY 30 Days patch lamoTRIgine [LaMICtal] 25 mg PO HS 30 Days tab Continue Cholecalciferol [Vitamin D3 (125 Mcg = 5000 Iu)] 125 mcg PO DAILY Propranolol LA [Inderal LA] 60 mg PO DAILY Loratadine 10 mg PO DAILY Discontinued ARIPiprazole [Abilify] 5 mg PO HS ARIPiprazole IM SYRINGE [Abilify Maintena Syringe] 400 mg IM Q28D Discharge Medication List Cholecalciferol [Vitamin D3 (125 Mcg = 5000 Iu)] 125 mcg PO DAILY 07/03/21 [History] Loratadine 10 mg PO DAILY 07/03/21 [History] Propranolol LA [Inderal LA] 60 mg PO DAILY 07/03/21 [History] ARIPiprazole IM SYRINGE [Abilify Maintena Syringe] 400 mg IM Q28D #1 07/07/21 [Rx] Nicotine 14Mg/24Hr Patch [Habitrol] 1 patch TRANSDERM DAILY 30 Days patch 07/07/21 [Rx] lamoTRIgine [LaMICtal] 25 mg PO HS 30 Days tab 07/07/21 [Rx] Follow up Appointment(s)/Referral(s): thom correa [Other] - 07/08/21 12:[address] [facility] [Outside] - 07/10/21 11:00 am (07/10/2021 11:00AM - 11:15AM GERRY TORRES 07/10/2021 11:30AM - 12:30PM Genie Fuentes 07/10/2021 12:30PM - 12:45PM GERRY TORRES ) [facility] [Primary Care Provider] - 1-2 days Patient Instructions/Handouts: Mood Disorders (DC), Depression (DC), Help Prevent Suicide (DC) Activity/Diet/Wound Care/Special Instructions: Activity and diet as tolerated. Avoid the use of street drugs and alcohol. Take all medications as prescribed. When you are in need of refills on your medications please contact your medical provider and/or outpatient psychiatrist to have this done. Please go to scheduled outpatient appointment for aftercare treatment. If symptoms return or become worse, call the crisis line at and/or go to the nearest emergency room for evaluation Discharge Disposition: HOME SELF-CARE
== END 2021-07-08 10:30 | DRG 897 ==
LOC: EC 15:31 → 3MHU 19:01
PROVIDERS: ADMIT Psychiatry & Neurology Psychiatry; ATTEND Psychiatry & Neurology Psychiatry
PROC: 0HQ1XZZ Repair Face Skin, External Approach (ICD-10-PCS; principal; 2021-07-05)
DX: F12.151 Cannabis abuse with psychotic disorder with hallucinations (principal); G95.0 Syringomyelia and syringobulbia; F20.9 Schizophrenia, unspecified; S01.81XA Laceration without foreign body of other part of head, initial encounter; R42 Dizziness and giddiness; H91.90 Unspecified hearing loss, unspecified ear; R47.9 Unspecified speech disturbances; F17.200 Nicotine dependence, unspecified, uncomplicated; Z71.6 Tobacco abuse counseling; Z79.899 Other long term (current) drug therapy; Z87.438 Personal history of other diseases of male genital organs; Z56.0 Unemployment, unspecified; Z97.4 Presence of external hearing-aid; Z98.890 Other specified postprocedural states; Z71.51 Drug abuse counseling and surveillance of drug abuser; Z71.41 Alcohol abuse counseling and surveillance of alcoholic; W18.30XA Fall on same level, unspecified, initial encounter; Y92.230 Patient room in hospital as the place of occurrence of the external cause; Z82.2 Family history of deafness and hearing loss; Z81.4 Family history of other substance abuse and dependence
CPT/HCPCS: 70450; 80053; 80061; 80306; 82075; 83036; 84443; 85025; 99285

== ENCOUNTER 2023-03-01 11:16 | Inpatient (IN) | payer MEDICAID, MEDICARE, OTHER ==
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
[2023-03-01 13:31] LABS: Amphetamine Screen,Urine Not Detected (NotDetected); Barbiturate Screen,Urine Not Detected (NotDetected); Benzodiazepines Screen,Urine Not Detected (NotDetected); Cocaine Screen,Urine Not Detected (NotDetected); Methadone Screen, Urine Not Detected (NotDetected); Opiate Screen,Urine Not Detected (NotDetected); Oxycodone Screen, Urine Not Detected (NotDetected); Phencyclidine Screen,Urine Not Detected (NotDetected); Tricyclic Antidepressant,Urine Not Detected (NotDetected); Urn Cannabinoid Scrn Not Detected (NotDetected)
[2023-03-01 17:07] LABS: Appearance,Urine Clear (Clear); Color,Urine Light Yellow; Glucose,Urine (UA) Negative (Negative); PH, Urine 7.5 (5.0-8.0); Protein,Urine Negative (Negative); Specific Gravity,Urine 1.015 (1.001-1.035)
[2023-03-01 17:08] LABS: Bilirubin,Urine Negative (Negative); Blood,Urine Negative (Negative); Ketones,Urine Negative (Negative); Leukocyte Esterase,Urine Negative (Negative); Nitrite,Urine Negative (Negative); Urobilinogen,Urine <2.0 mg/dL (<2.0)
[2023-03-01 17:09] LABS: Basophils % (A) 0 %; Eosinophils # (A) 0.1 k/uL (0-0.7); Eosinophils % (A) 1 %; HCT 42.4 % (39.0-53.0); HGB 14.6 gm/dL (13.0-17.5); Lymphocytes % (A) 26 %; MCH 29.2 pg (25.0-35.0); MCHC 34.3 g/dL (31.0-37.0); MCV 85.1 fL (80.0-100.0); Mean Platelet Volume 8.8; Monocytes # (A) 0.4 k/uL (0-1.0); Monocytes % (A) 5 %; Neutrophils # (A) 5.2 k/uL (1.3-7.7); Neutrophils % (A) 66 %; Platelet Count 209 k/uL (150-450); RBC 4.98 m/uL (4.30-5.90); RDW 13.1 % (11.5-15.5); WBC 7.9 k/uL (3.8-10.6)
[2023-03-01 17:30] LABS: African American GFR (CKD) >90 (>60 ml/min/1.73 sqM); Anion Gap 11 mmol/L; Blood Urea Nitrogen 13 mg/dL (9-20); Calcium 9.7 mg/dL (8.4-10.2); Carbon Dioxide 26 mmol/L (22-30); Chloride 105 mmol/L (98-107); Glucose 120 mg/dL (74-99); Non-African American GFR(CKD) >90 (>60 ml/min/1.73 sqM); Potassium 4.1 mmol/L (3.5-5.1); Sodium 142 mmol/L (137-145)
[2023-03-05] MEDS ORDERED: IBUPROFEN 600 MG TAB PO STA (22:58)
[2023-03-07] MEDS ORDERED: LORazepam 1 MG TAB PO PRN (14:50)
[2023-03-07] MEDS ORDERED: LORazepam 2 MG/ML INJ IM PRN (14:50)
[2023-03-07] MEDS ORDERED: HALOPERIDOL LACTATE 5 MG/ML 1 ML VIAL IM PRN (14:50)
[2023-03-07] MEDS ORDERED: MAGNESIUM HYDROXIDE 2,400 MG/30 ML CUP PO PRN (14:50)
[2023-03-07] MEDS ORDERED: haloperidoL 5 MG TAB PO PRN (14:50)
[2023-03-07] MEDS ORDERED: QUEtiapine 100 MG TAB PO PRN (15:05)
[2023-03-07] MEDS: NICOTINE 14MG/24HR PATCH TRANSDERM SCH (16:08)
[2023-03-07] MEDS ORDERED: INFLUENZA VACC (6 MOS-64 YRS) 60 MCG/0.5 ML SYRINGE IM ONE (19:34)
[2023-03-07] MEDS ORDERED: ARIPiprazole 10 MG TAB PO SCH (21:00)
[2023-03-08] MEDS: NICOTINE 14MG/24HR PATCH TRANSDERM SCH (09:07)
[2023-03-08] MEDS ORDERED: traZODone HCL 100 MG TAB PO PRN (12:53)
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
[2023-03-08 15:59] LABS: Chol/HDL Ratio 2.07 Ratio; LDL Cholesterol,Calculated 27.2 mg/dL (0.0-131.0)
--- NOTE | 2023-03-08 16:55 | P.HPMEDMHU ---
History of Present Illness H&P Date: 03/08/23 (Patient seen while covering for Dr. Moustapha Orlando) Chief Complaint: Psychiatric evaluation Patient is a 22-year-old male who presents to the emergency department for psychiatric evaluation. Presents with one of his guardian superstition the patient. Was just released from prison, he has a history of auditory hallucinations. He is not on medications. Has a history of polysubstance abuse. On prison patient was also having some aggressive behavior, as well as frequent inappropriate masturbation. He. He also is having suicidal ideations. Denies any suicidal ideations at this time. Denies any homicidal ideations at this time. Does endorse auditory hallucinations. Has no other acute complaints. Presents with his guardian who wants him to be evaluated.Patient in prison apparently also hit his head on the wall with self injuring behavior a few Days ago. Has some bruising over the forehead. Did not experience loss of consciousness. Was not on blood thinners. No nausea or vomiting. No altered mental status. 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 and history of the smoking in past patient admitted in psych unit his vitals are stable with oxygen saturation 100% labs reviewed white cell count 7.9 with hemoglobin and hematocrit of 14/42 platelet count of the 2 on chemistry fairly within normal limit with sodium 142 potassium 4.1 BUN and creatinine is 13/0.4 urinalysis unremarkable Review of Systems All systems: negative 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(s): Deaf Syringomyelia History of Any Multi-Drug Resistant Organisms: None Reported Past Surgical History: No Surgical Hx Reported Additional Past Surgical History / Comment(s): testicular surgery Past Anesthesia/Blood Transfusion Reactions: No Reported Reaction Past Psychological History: Bipolar, Depression, Schizophrenia Smoking Status: Former smoker Past Alcohol Use History: None Reported Past Drug Use History: None Reported, Marijuana, Methamphetamine - Past Family History Mother Family Medical History: Hearing Disorder / Deafness Father Additional Family Medical History / Comment(s): used marijuana Medications and Allergies Home Medications Medication Instructions Recorded Confirmed Type ARIPiprazole [Abilify] 10 mg PO HS 03/01/23 03/01/23 History Allergies Allergy/AdvReac Type Severity Reaction Status Date / Time No Known Allergies Allergy Verified 03/01/23 18:06 Physical Exam Vitals: Vital Signs Temp Pulse Pulse BP 03/08/23 15:03 99 122/58 03/08/23 02:14 97.8 F 90 115/60 - Constitutional General appearance: average body habitus, cooperative, disheveled - EENT Eyes: EOMI, PERRLA ENT: normal oropharynx Ears: bilateral: normal - Neck Neck: normal ROM Carotids: bilateral: upstroke normal Thyroid: right: normal size - Respiratory Respiratory: bilateral: CTA - Cardiovascular Rhythm: regular Heart sounds: normal: S1, S2 - Gastrointestinal General gastrointestinal: normal bowel sounds, soft - Integumentary Integumentary: normal turgor - Neurologic Neurologic: CNII-XII intact - Musculoskeletal Musculoskeletal: gait normal, strength equal bilaterally - Psychiatric Flat affect Psychiatric: A&O x's 3, intact judgment & insight Cranial Nerve Examination - Cranial Nerves Cranial Nerve I- Olfactory: Intact Cranial Nerve II- Optic: Intact Cranial Nerve III- Oculomotor: Intact Cranial Nerve IV- Trochlear: Intact Cranial Nerve V- Trigeminal: Intact Cranial Nerve - Abducens: Intact Cranial Nerve VII- Facial: Intact Cranial Nerve VIII- Auditory: Intact Cranial Nerve IX- Glossopharyngeal: Intact Cranial Nerve X- Vagus: Intact Cranial Nerve XI- Accessory: Intact Cranial Nerve XII- Hypoglossal: Intact Results CBC & Chem 7: 03/01/23 16:47 03/01/23 16:47 Labs: Abnormal Lab Results - Last 24 Hours (Table) 03/08/23 Range/Units 11:07 Triglycerides 185.00 H (0.00-149.00) mg/dL Thrombosis Risk Factor Assmnt - Choose All That Apply Any of the Below Risk Factors Present?: No Other Risk Factors: No Other congenital or acquired thrombophilia - If yes, enter type in comment: No Thrombosis Risk Factor Assessment Level: Very Low Risk Assessment and Plan Assessment: Severe deafness Schizoaffective disorder Cannabis use disorder Nicotine dependence Plan: Continue supportive care and psychiatric evaluation and therapy Counseling and education for smoking cessation and substance use No other active medical intervention needed follow-up as outpatient with Dr. Bain will be available as needed Time with Patient: Greater than 30
[2023-03-08] MEDS: SERTRALINE 50 MG TAB PO SCH (20:29)
[2023-03-08] MEDS ORDERED: PALIPERIDONE 3 MG TAB.ER.24 PO SCH (21:00)
[2023-03-08] MEDS: haloperidoL 5 MG TAB PO PRN (23:57)
[2023-03-09] MEDS: NICOTINE 14MG/24HR PATCH TRANSDERM SCH (09:00)
[2023-03-09] MEDS ORDERED: LORazepam 2 MG/ML INJ IM PRN (11:56)
--- NOTE | 2023-03-09 12:00 | P.PN ---
Progress Note - Text Progress Note Date: 03/09/23 Interval history: Patient was seen today laying in bed and was approached by sign writer letterer or painter, sign writer letterer or painter atte mpted to awaken patient several times today however patient refused to speak to sign writer letterer or painter and turned away from him. Patient did not answer any questions today. He has been taking medications, he really received Ativan and Haldol when necessary last night. Mental status examination: General Appearance: Patient appears to be then, multiple tattoos, stated age is alert, uncooperative today. Behavior: Patient is laying in his bed, uncooperative. Speech: Patient's speech is fluent and nonpressured. [place]. Mood/Affect: Unable to assess Suicidality/Homicidality: Unable to assess Perceptions: Unable to assess Though content/process: [place], poverty of content. Memory and concentration: Unable to assess Judgment and insight: poor/impulsive IMPRESSIONS: Schizoaffective disorder Cannabis use disorder Nicotine dependence PLAN: -Patient is admitted under voluntary status to MHU for stabilization of psychiatric symptoms and safety. Patient has not signed adult voluntary form and medication consent and is placed in patient's chart -Medications : increase Paliperidone 6 mg daily at bedtime for psychosis/mood stabilization, increase trazodone 150 mg qhs when necessary for sleep, Zoloft 50 mg daily at bedtime for mood/anxiety. -Ativan and Haldol PRN for agitation/aggression -NRT - nicotine patch -SW on board for discharge planning. Encourage patient to participate in groups to work on coping skills. Will await deferral and court date.
[2023-03-09] MEDS: haloperidoL 5 MG TAB PO PRN (15:18)
[2023-03-09] MEDS: SERTRALINE 50 MG TAB PO SCH (20:22)
[2023-03-09] MEDS: PALIPERIDONE 6 MG TAB.ER.24 PO SCH (20:22)
[2023-03-10] MEDS: NICOTINE 14MG/24HR PATCH TRANSDERM SCH (09:19)
[2023-03-10] MEDS: haloperidoL 5 MG TAB PO PRN (11:36)
--- NOTE | 2023-03-10 15:16 | P.PN ---
Progress Note - Text Progress Note Date: 03/10/23 Interval history: Patient was seen today laying in bed and was approached by fha underwriter, and patient awoke today. He continues to be fairly concrete, he states that he is doing a bit better right now. He states that he is able to sleep last night better. He did claim that he needed more haloperidol today the voices. He states that overall the voices have been improving moderately. He spoke about increasing his medications that she is okay with. He is not reporting any other issues at this time. He is not interested in going to many groups. He continues to be noticed by staff to be masturbating in his room at times. He is denying any visual hallucinations, denying any suicidal or homicidal ideations intent or plan. Mental status examination: General Appearance: Patient appears to be then, multiple tattoos, stated age is alert, cooperative today. Behavior: Patient is laying in his bed, cooperative today Speech: Patient's speech is fluent and nonpressured. [place]. Mood/Affect: His mood is "okay" affect is constricted Suicidality/Homicidality: Denies Perceptions: Think that he still hearing voices on and off during the day however this is improving, no visual hallucinations. Though content/process: [place], poverty of content. More directable Memory and concentration: Unable to assess Judgment and insight: poor/impulsive, improving mildly IMPRESSIONS: Schizoaffective disorder Cannabis use disorder Nicotine dependence PLAN: -Patient is admitted under voluntary status to MHU for stabilization of psychiatric symptoms and safety. Patient has not signed adult voluntary form and medication consent and is placed in patient's chart -Medications : increase Paliperidone to 3 mg + 6 mg a day for psychosis/mood stabilization, trazodone 150 mg qhs when necessary for sleep, Zoloft 50 mg daily at bedtime for mood/anxiety. -Ativan and Haldol PRN for agitation/aggression -NRT - nicotine patch -SW on board for discharge planning. Encourage patient to participate in groups to work on coping skills. Will await deferral and court date.
[2023-03-10] MEDS: PALIPERIDONE 3 MG TAB.ER.24 PO SCH (15:37)
[2023-03-10] MEDS: SERTRALINE 50 MG TAB PO SCH (20:04)
[2023-03-10] MEDS: PALIPERIDONE 6 MG TAB.ER.24 PO SCH (20:04)
[2023-03-11] MEDS: PALIPERIDONE 3 MG TAB.ER.24 PO SCH (08:34)
[2023-03-11] MEDS: NICOTINE 14MG/24HR PATCH TRANSDERM SCH (08:35)
[2023-03-11] MEDS ORDERED: PALIPERIDONE IM 234 MG/1.5 ML SYG IM STA (11:13)
--- NOTE | 2023-03-11 11:19 | P.PN ---
Progress Note - Text Progress Note Date: 03/11/23 Interval history: Patient was seen today laying in bed and was approached by life underwriter, and patient awoke today. Patient claims that he is doing better today. He states that he did take one of the haloperidol pills yesterday due to hearing voices however states that they are improving since yesterday. He claims that he is able to sleep throughout the night. He continues to be fairly concrete, he states that he is doing a bit better right now. we spoke about increasing his medications that she is okay with. He is not reporting any other issues at this time. We spoke about patient going to a fdc which he is okay with, we also spoke about transitioning on to a long-acting injection which patient was also okay with. He is not interested in going to many groups. he appears to be dressed more appropriately in the hallways and in his room. He is denying any visual hallucinations, denying any suicidal or homicidal ideations intent or plan. Mental status examination: General Appearance: Patient appears to be then, multiple tattoos, stated age is alert, cooperative today. Behavior: Patient is laying in his bed, cooperative today Speech: Patient's speech is fluent and nonpressured. [place]. Mood/Affect: His mood is "ok" affect is constricted Suicidality/Homicidality: Denies Perceptions: claims that the voices have been imrpoving, no visual hallucinations. Though content/process: [place], poverty of content. More directable, improving Memory and concentration: alert and oriented x 3 Judgment and insight: poor, improving mildly IMPRESSIONS: Schizoaffective disorder Cannabis use disorder Nicotine dependence PLAN: -Patient is admitted under voluntary status to MHU for stabilization of psychiatric symptoms and safety. Patient has not signed adult voluntary form and medication consent and is placed in patient's chart -Medications : increase Paliperidone to 12 mg hs for tonight and then decreasing PO dose over the weekend overed. Agreeable to recieve the Invega sustenna 234 mg IM loading dose today for psychosis/mood stabilization and to ensure compliance, trazodone 150 mg qhs when necessary for sleep, Zoloft 50 mg daily at bedtime for mood/anxiety. -Ativan and Haldol PRN for agitation/aggression -NRT - nicotine patch -SW on board for discharge planning. Encourage patient to participate in groups to work on coping skills. Will await deferral and court date. patient apparently is not accepted at the group homes through [facility], SW to discuss with darshan other alternatives such as room and board.
[2023-03-11] MEDS: SERTRALINE 50 MG TAB PO SCH (20:35)
[2023-03-11] MEDS ORDERED: PALIPERIDONE 3 MG TAB.ER.24 PO SCH (21:00)
[2023-03-11] MEDS ORDERED: PALIPERIDONE 6 MG TAB.ER.24 PO ONE (21:00)
[2023-03-12] MEDS: NICOTINE 14MG/24HR PATCH TRANSDERM SCH (09:43)
[2023-03-12] MEDS: SERTRALINE 50 MG TAB PO SCH (20:55)
--- NOTE | 2023-03-12 20:56 | P.PN ---
Progress Note - Text Progress Note Date: 03/12/23 Interval history: The patient has been evaluated today for an established follow-up visit, covering for Dr. Ceballos The chart has been reviewed, medication reconciliation completed, and the case has been discussed with the nursing staff. The patient was evaluated today while lying on his bed in his room. He expressed difficulty in hearing, and I had to raise my voice to communicate with him or sometimes resort to writing. As for his mood, the patient reported a stable mood and denied experiencing symptoms of depression, irritability, anxiety, or mood swings. He stated, "My mood is good." The patient also denied having any suicidal or homicidal ideation, and there were no reports of hallucinations, paranoid ideation, delusions, or manic symptoms. The patient reported fair sleep and appetite. The patient has been participating in group activities and other unit programs. The patient reports continued compliance with psychiatric medication, with no reported side effects. Mental Status Examination: Appearance: Appears stated age, adequately groomed, average body built, and no specific features. Gait/ posture: Steady gait, normal arm swinging, no abnormal movements, with relaxed posture. Attitude and Behavior: Engaged, cooperative, maintained eye contact during co urse of interview. Motor Activity: No psychomotor agitation or retardation. Speech: slow rate, decreased amount. None pressured. Mood: " fine Affect: stable, reactive, congruent to mood, appropriate to context and situation. Thought form: Goal directed, linear, and relevant, not incoherent and no clang association. Thought content: Logical, non-delusional, denies suicidal / homicidal thoughts, intentions, or plans. Perception: Denies any auditory/ visual or tactile hallucinations. Attention: No impairment. Orientation: Oriented to time, place, person, and situation. Insight & Judgment: Improving Impulse control: improving Assessment and Diagnosis: Schizoaffective disorder Cannabis use disorder Nicotine dependence Plan: Continue inpatient psychiatric hospitalization. The patient continues to meet the criteria for inpatient psychiatric hospitalization as evidenced by the ongoing need for further monitoring, stabilization and discharge planning. Continue routine monitoring, including suicide and elopement precautions. Check every 15 minutes. Educate and encourage the patient to attend groups and other therapeutic activities. Consult the medical team if any acute medical emergency arises. Continue current psychiatric medications, including: Paliperidone 12 mg hs for tonight and then decreasing PO dose over the weekend. The patient agreed to recieve the Invega sustenna 234 mg IM loading dose on 03/11 for psychosis/mood stabilization and to ensure compliance Trazodone 150 mg qhs when necessary for sleep. Zoloft 50 mg daily at bedtime for mood/anxiety. NRT - nicotine patch Continue PRN psychiatric medications, including: -Ativan and Haldol PRN for agitation/aggression Continue non-psychiatric medications as per the medical team's recommendations. Continue discharge planning as per social service and the primary psychiatric team's recommendations.
[2023-03-12] MEDS ORDERED: PALIPERIDONE 3 MG TAB.ER.24 PO ONE (21:00)
[2023-03-13] MEDS: NICOTINE 14MG/24HR PATCH TRANSDERM SCH (07:46)
[2023-03-13] MEDS: ALBUTEROL HFA INHALER INHALATION PRN ×2 (13:43→20:22)
[2023-03-13] MEDS: SERTRALINE 50 MG TAB PO SCH (20:22)
[2023-03-13] MEDS ORDERED: PALIPERIDONE 6 MG TAB.ER.24 PO SCH (21:00)
--- NOTE | 2023-03-13 22:14 | P.PN ---
Progress Note - Text Progress Note Date: 03/13/23 Interval history: The patient has been evaluated today for an established follow-up visit, darshan matute for Dr. Ceballos The chart has been reviewed, medication reconciliation completed, and the case has been discussed with the nursing staff. The patient was evaluated today while in his room. The patient was seen exercising in his room. He isolates himself but apparently that related to his hearing difficulties. The patient indicates his mood and denies symptoms of depression, anxiety, or mood swings. He reports fair sleep and appetite. No reports of delusions, paranoid ideation, hallucinations, or manic symptoms. The patient reports feeling tightness in his chest with sometimes having difficulty to breathe. He reports history of taking albuterol for similar symptoms which was helping. I discussed with the patient to give when necessary albuterol, and he appreciated offering him the medication. The patient reports continued compliance with psychiatric medication, with no reported side effects. Mental Status Examination: Appearance: Appears stated age, adequately groomed, average body built, and no specific features. Gait/ posture: Steady gait, normal arm swinging, no abnormal movements, with relaxed posture. Attitude and Behavior: Engaged, cooperative, maintained eye contact during course of interview. Motor Activity: No psychomotor agitation or retardation. Speech: slow rate, decreased amount. None pressured. Mood: " good Affect: stable, reactive, congruent to mood, appropriate to context and situation. Thought form: Goal directed, linear, and relevant, not incoherent and no clang association. Thought content: Logical, non-delusional, denies suicidal / homicidal thoughts, intentions, or plans. Perception: Denies any auditory/ visual or tactile hallucinations. Attention: No impairment. Orientation: Oriented to time, place, person, and situation. Insight & Judgment: Improving Impulse control: improving Assessment and Diagnosis: Schizoaffective disorder Cannabis use disorder Nicotine dependence Plan: Continue inpatient psychiatric hospitalization. The patient continues to meet the criteria for inpatient psychiatric hospitalization as evidenced by the ongoing need for further monitoring, stabilization and discharge planning. Continue routine monitoring, including suicide and elopement precautions. Check every 15 minutes. Educate and encourage the patient to attend groups and other therapeutic activities. Consult the medical team if any acute medical emergency arises. Continue current psychiatric medications, including: Paliperidone 12 mg hs for tonight and then decreasing PO dose over the weekend. The patient agreed to recieve the Invega sustenna 234 mg IM loading dose on 03/11 for psychosis/mood stabilization and to ensure compliance Trazodone 150 mg qhs when necessary for sleep. Zoloft 50 mg daily at bedtime for mood/anxiety. NRT - nicotine patch Continue PRN psychiatric medications, including: -Ativan and Haldol PRN for agitation/aggression Continue non-psychiatric medications as per the medical team's recommendations. Albuterol when necessary for difficulty breathing. Continue discharge planning as per social service and the primary psychiatric team's recommendations.
[2023-03-13] MEDS: haloperidoL 5 MG TAB PO PRN (23:40)
[2023-03-14] MEDS: NICOTINE 14MG/24HR PATCH TRANSDERM SCH (08:05)
[2023-03-14] MEDS: ALBUTEROL HFA INHALER INHALATION PRN ×2 (08:24→20:32)
--- NOTE | 2023-03-14 14:07 | P.PN ---
Progress Note - Text Progress Note Date: 03/14/23 Interval history: Patient was seen today laying in bed and was approached by senior grant writer, and patient awoke today. Patient claims that he is doing better today, he denied any current complaints. He did ask about what the discharge plan was for him. We spoke about having a needing with the guardian and also [facility] discussed placements likely tomorrow. Patient denied any complaints over the weekends. He claims that he is able to sleep fairly at nighttime. Claims that the voices have calmed down and are not distressing to him. He has not been engaging in any head banging or self-destructive behavior. He is not interested in going to many groups. he appears to be dressed more appropriately. He is denying any visual hallucinations, denying any suicidal or homicidal ideations intent or plan. Mental status examination: General Appearance: Patient appears to be then, multiple tattoos, stated age is alert, cooperative today. Behavior: Patient is laying in his bed, cooperative today Speech: Patient's speech is fluent and nonpressured. [place]. Mood/Affect: His mood is "ok" affect is constricted Suicidality/Homicidality: Denies Perceptions: claims that the voices have been imrpoving, no visual hallucinations. Though content/process: [place], poverty of content. More directable, imp roving Memory and concentration: alert and oriented x 3 Judgment and insight: poor, improving mildly IMPRESSIONS: Schizoaffective disorder Cannabis use disorder Nicotine dependence PLAN: -Patient is admitted under voluntary status to MHU for stabilization of psychiatric symptoms and safety. Patient has not signed adult voluntary form and medication consent and is placed in patient's chart -Medications : decrease PO Paliperidone, patient recieved Invega sustenna 234 mg IM loading dose on 03/11 for psychosis/mood stabilization and to ensure compliance, next dose of 156 mg IM will be due tomorrow, trazodone 150 mg qhs when necessary for sleep, Zoloft 50 mg daily at bedtime for mood/anxiety. -Ativan and Haldol PRN for agitation/aggression -NRT - nicotine patch - on board for discharge planning. Encourage patient to participate in groups to work on coping skills. Will await deferral and court date. [facility]arshan other alternatives such as room and board, will have meeting for placement tomorrow with yanely and [facility].
[2023-03-14] MEDS: SERTRALINE 50 MG TAB PO SCH (20:31)
[2023-03-14] MEDS: ACETAMINOPHEN TAB 325 MG TAB PO PRN (20:53)
[2023-03-14] MEDS ORDERED: PALIPERIDONE 6 MG TAB.ER.24 PO ONE (21:00)
[2023-03-15] MEDS ORDERED: PALIPERIDONE IM 156 MG/ML SYG IM ONE (09:00)
[2023-03-15] MEDS: NICOTINE 14MG/24HR PATCH TRANSDERM SCH (10:15)
[2023-03-15] MEDS: ALBUTEROL HFA INHALER INHALATION PRN (12:14)
--- NOTE | 2023-03-15 15:32 | P.PN ---
Progress Note - Text Progress Note Date: 03/15/23 Interval history: Patient was seen today in the hallways and was agreeable bond writer today. Patient claims that he is doing better today, patient denied any overnight complaints. Claims it is taken his medications it is helping him. He continues to be fairly constricted and concrete in his answers. He asked again about discharge, he knows that there will be a meeting later on today about his discharge planning. He claims that he is able to sleep fairly at nighttime. Claims that the voices have calmed down and are not distressing to him, she will be due today for his second long-acting injection dose. He has not been engaging in any head banging or self-destructive behavior. He is not interested in going to many groups. he appears to be dressed more appropriately. He is denying any visual hallucinations, denying any suicidal or homicidal ideations intent or plan. Mental status examination: General Appearance: Patient appears to be then, multiple tattoos, stated age is alert, cooperative today. Behavior: Patient is laying in his bed, cooperative today Speech: Patient's speech is fluent and nonpressured. [place]. Mood/Affect: His mood is "fine" affect is constricted Suicidality/Homicidality: Denies Perceptions: claims that the voices have been imrpoving, no visual hallucinations. Though content/process: [place], poverty of content. More directable, improving Memory and concentration: alert and oriented x 3 Judgment and insight: chronically limited/impulsive, improving mildly IMPRESSIONS: Schizoaffective disorder Cannabis use disorder Nicotine dependence PLAN: -Patient is admitted under voluntary status to MHU for stabilization of psychiatric symptoms and safety. Patient has not signed adult voluntary form and medication consent and is placed in patient's chart -Medications : recieved Invega sustenna 234 mg IM loading dose on 03/11 for psychosis/mood stabilization and to ensure compliance, 2nd dose of 156 mg IM given 03/15, next maintenance dose of 156 mg IM will be due on 04/05, trazodone 150 mg qhs when necessary for sleep, Zoloft 50 mg daily at bedtime for mood/anxiety. -Ativan and Haldol PRN for agitation/aggression -NRT - nicotine patch -SW on board for discharge planning. Encourage patient to participate in groups to work on coping skills. patient deferred with his contracts attorney. patient apparently is not accepted at the group homes through [facility]. ROSANA, yanely and unit staff along with sheet writer had a meeting today to discuss placement. Family/relatives do not feel safe having patient at home due to his past. Rosi will communicate with with courts to file a heaering to have side panel hanger involved in placement as it is still felt that patients best option would be a half-way setting.
[2023-03-15] MEDS: SERTRALINE 50 MG TAB PO SCH (19:38)
[2023-03-15] MEDS: haloperidoL 5 MG TAB PO PRN (19:38)
[2023-03-16] MEDS: NICOTINE 14MG/24HR PATCH TRANSDERM SCH (07:58)
--- NOTE | 2023-03-16 10:05 | P.PN ---
Progress Note - Text Progress Note Date: 03/16/23 Interval history: Patient was seen today laying in his bed. Patient claims that she is doing "o lizz". He pulled out a note that explain that he would like to be switched onto haloperidol due to the ongoing voices. Patient has been asking for Haldol PO prn almost daily. Patient denied any overnight complaints. We spoke about the benefits and the risks of transitioning patient onto a first generation antipsychotic including the side effect profile and patient was agreeable to this. He continues to be fairly constricted and concrete in his answers however more directable. He claims that he is able to sleep fairly at nighttime. He has not been engaging in any head banging or self-destructive behavior. He is not interested in going to many groups. he appears to be dressed more appropriately. He is denying any visual hallucinations, denying any suicidal or homicidal ideations intent or plan. Mental status examination: General Appearance: Patient appears to be then, multiple tattoos, stated age is alert, cooperative today. Behavior: Patient is laying in his bed, cooperative today Speech: Patient's speech is fluent and nonpressured. [place]. Mood/Affect: His mood is "ok" affect is constricted Suicidality/Homicidality: Denies Perceptions: claims that the voices have been imrpoving, no visual hallucinations. Though content/process: [place], poverty of content. More directable, improving Memory and concentration: alert and oriented x 3 Judgment and insight: chronically limited/impulsive, improving mildly IMPRESSIONS: Schizoaffective disorder Cannabis use disorder Nicotine dependence PLAN: -Patient is admitted under voluntary status to MHU for stabilization of psy chiatric symptoms and safety. Patient has not signed adult voluntary form and medication consent and is placed in patient's chart -Medications : recieved Invega sustenna 234 mg IM loading dose on 03/11 for psychosis/mood stabilization, 2nd dose of 156 mg IM given 03/15. Despite the 2 doses of GARCIA invega patient is still now complaining of AH which are distressing to him. He was askign to be switched onto Haldol PO, start 5 mg bid for psychosis, trazodone 150 mg qhs when necessary for sleep, Zoloft 50 mg daily at bedtime for mood/anxiety -Ativan and Haldol PRN for agitation/aggression -NRT - nicotine patch -ROSANA on board for discharge planning. Encourage patient to participate in groups to work on coping skills. patient deferred with his database admin. patient apparently is not accepted at the group homes through [facility]. yanely WAYNE and unit staff along with consumer loan underwriter had a meeting today to discuss placement. Family/relatives do not feel safe having patient at home due to his past. Rosi will communicate with with courts to file a heaering to have cable armorer operator involved in placement as it is still felt that patients best option would be a [facility] setting.
[2023-03-16] MEDS: haloperidoL 5 MG TAB PO SCH ×2 (10:10→19:56)
[2023-03-16] MEDS: SERTRALINE 50 MG TAB PO SCH (19:57)
[2023-03-16] MEDS: ALBUTEROL HFA INHALER INHALATION PRN (19:57)
[2023-03-16] MEDS: ACETAMINOPHEN TAB 325 MG TAB PO PRN (21:20)
[2023-03-17] MEDS: NICOTINE 14MG/24HR PATCH TRANSDERM SCH (08:44)
[2023-03-17] MEDS: haloperidoL 5 MG TAB PO SCH (08:44)
--- NOTE | 2023-03-17 12:17 | P.PN ---
Progress Note - Text Progress Note Date: 03/17/23 Interval history: Patient was seen today laying in his bed. Patient was awoken by automobile service writer today. Patient states that he is doing a bit better today. He continues to be fairly concrete in his tone of voice. He continues to ask about discharge planning and where he will be going. He appears to be a bit more future oriented. Claims that he is not sure if he heard any voices today as he "just woke up". Claims that yesterday he did hear some voices. Claims that the Haldol has been helping so far. Patient denied any overnight complaints. he was concrete in his answers however more directable, continues to ask questions about discharge planning. He claims that he is able to sleep fairly at nighttime. He has not been engaging in any head banging or self-destructive behavior. He is not interested in going to many groups. he appears to be dressed more appropriately. He is denying any visual hallucinations, denying any suicidal or homicidal ideations intent or plan. Mental status examination: General Appearance: Patient appears to be then, multiple tattoos, stated age is alert, cooperative today. Behavior: Patient is laying in his bed, cooperative today Speech: Patient's speech is fluent and nonpressured. [place]. Mood/Affect: His mood is "fine" affect is constricted Suicidality/Homicidality: Denies Perceptions: claims that the voices have been imrpoving, no visual hallucinations. Though content/process: [place], poverty of content. More directable, improving Memory and concentration: alert and oriented x 3 Judgment and insight: chronically limited/impulsive, improving mildly IMPRESSIONS: Schizoaffective disorder Cannabis use disorder Nicotine dependence PLAN: -Patient is admitted under voluntary status to MHU for stabilization of psychiatric symptoms and safety. Patient has not signed adult voluntary form and medication consent and is placed in patient's chart -Medications : recieved Invega sustenna 234 mg IM loading dose on 03/11 for psychosis/mood stabilization, 2nd dose of 156 mg IM given 03/15. Despite the 2 doses of GARCIA invega patient is still now complaining of AH which are distressing to him. Haldol PO, increase 4 mg tid for psychosis, trazodone 150 mg qhs when necessary for sleep, Zoloft 50 mg daily at bedtime for mood/anxiety -Ativan and Haldol PRN for agitation/aggression -NRT - nicotine patch -SW on board for discharge planning. Encourage patient to participate in groups to work on coping skills. patient deferred with his criminal defense attorney. patient apparently is not accepted at the group homes through [facility] due to apparent "lack of criteria". ROSANA, yanely and unit staff along with automobile service writer had a meeting to discuss placement. Family/relatives do not feel safe having patient at home due to his past issues. Rosi is communicating with the courts to file petition for help with placement of the patient from the copra processor however at this time it is not being heard in the courts. ROSANA to communicate with yanely about importance of a PPO to help them keep safe once patient is discharged and if he tries to return back to the home of his grandparents. Will attempt to transition patient onto Haldol GARCIA next week and then likely proceed with discharge [facility] or [place] where available beds.
[2023-03-17] MEDS: SERTRALINE 50 MG TAB PO SCH (20:30)
[2023-03-17] MEDS: ACETAMINOPHEN TAB 325 MG TAB PO PRN (20:31)
[2023-03-18] MEDS: NICOTINE 14MG/24HR PATCH TRANSDERM SCH (08:35)
[2023-03-18] MEDS: ALBUTEROL HFA INHALER INHALATION PRN (13:21)
--- NOTE | 2023-03-18 13:55 | P.PN ---
Progress Note - Text Progress Note Date: 03/18/23 Interval history: Patient was seen today laying in his bed. Patient was awoken by securities underwriter today. Patient states that he is doing a bit better today. He continues to be fairly concrete in his tone of voice. He continues to ask about discharge planning and where he will be going. He appears to be a bit more future oriented. Claims that he is not sure if he heard any voices today as he "just woke up". Claims that yesterday he did hear some voices. Claims that the Haldol has been helping so far. Patient denied any overnight complaints. he was concrete in his answers however more directable, continues to ask questions about discharge planning. He claims that he is able to sleep fairly at nighttime. He has not been engaging in any head banging or self-destructive behavior. He is not interested in going to many groups. he appears to be dressed more appropriately. He is denying any visual hallucinations, denying any suicidal or homicidal ideations intent or plan. Mental status examination: General Appearance: Patient appears to be then, multiple tattoos, stated age is alert, cooperative today. Behavior: Patient is laying in his bed, cooperative today Speech: Patient's speech is fluent and nonpressured. [place]. Mood/Affect: His mood is "fine" affect is constricted Suicidality/Homicidality: Denies Perceptions: claims that the voices have been imrpoving, no visual hallucinations. Though content/process: [place], poverty of content. More directable, improving Memory and concentration: alert and oriented x 3 Judgment and insight: chronically limited/impulsive, improving mildly IMPRESSIONS: Schizoaffective disorder Cannabis use disorder Nicotine dependence PLAN: -Patient is admitted under voluntary status to MHU for stabilization of psychiatric symptoms and safety. Patient has not signed adult voluntary form and medication consent and is placed in patient's chart -Medications : recieved Invega sustenna 234 mg IM loading dose on 03/11 for psychosis/mood stabilization, 2nd dose of 156 mg IM given 03/15. Despite the 2 doses of GARCIA invega patient is still now complaining of AH which are distressing to him. Haldol PO 5 mg bid for psychosis, trazodone 150 mg qhs when necessary for sleep, Zoloft 50 mg daily at bedtime for mood/anxiety -Ativan and Haldol PRN for agitation/aggression -NRT - nicotine patch -SW on board for discharge planning. Encourage patient to participate in groups to work on coping skills. patient deferred with his insurance defense attorney. patient apparently is not accepted at the group homes through [facility] due to apparent "lack of criteria". ROSANA, yanely and unit staff along with securities underwriter had a meeting to discuss placement. Family/relatives do not feel safe having patient at home due to his past issues. Rosi is communicating with the courts to file petition for help with placement of the patient from the product finisher however at this time it is not being heard in the courts. ROSANA to communicate with gamervindians about importance of a PPO to help them keep safe once patient is discharged and if he tries to return back to the home of his grandparents. Will attempt to transition patient onto Haldol GARCIA next week and then likely proceed with discharge based on recommendations from [facility] and also from Paralegal Legal Secretary after hearing tuesday
[2023-03-18 15:16] VITALS: BMI 19.2
[2023-03-18] MEDS: haloperidoL 5 MG TAB PO SCH (19:45)
[2023-03-18] MEDS: SERTRALINE 50 MG TAB PO SCH (19:46)
[2023-03-18] MEDS: LORazepam 1 MG TAB PO PRN (20:46)
[2023-03-18 20:58] LABS: Glucose,Whole Blood 148 mg/dL (70-110)
[2023-03-19] MEDS: NICOTINE 14MG/24HR PATCH TRANSDERM SCH (08:27)
[2023-03-19] MEDS: haloperidoL 5 MG TAB PO SCH ×2 (08:27→19:59)
[2023-03-19] MEDS: ALBUTEROL HFA INHALER INHALATION PRN ×3 (08:28→20:00)
[2023-03-19] MEDS: BENZTROPINE MESYLATE 0.5 MG TAB PO SCH ×2 (08:43→19:59)
--- NOTE | 2023-03-19 08:43 | P.PN ---
Subjective Progress Note Date: 03/19/23 Principal diagnosis: IMPRESSIONS: Schizoaffective disorder Cannabis use disorder Nicotine dependence Patient was seen today in the office he is very hard of hearing. Patient states that he is doing a bit better today he thinks the medicine is helping him calm down but he also has been struggling with muscle cramps. They gave him Ativan last night with some relief but it still bothering him this morning. He claims that he had some trouble sleeping due to the cramping. He has not been engaging in any head banging or self-destructive behavior. He is not interested in going to many groups. he appears to be dressed more appropriately. He is denying any visual hallucinations, denying any suicidal or homicidal ideations intent or plan. Mental status examination: General Appearance: Patient appears to be then, multiple tattoos, stated age is alert, cooperative today. Behavior: cooperative today Speech: Patient's speech is fluent and nonpressured. [place]. Mood/Affect: Flat Suicidality/Homicidality: Denies Perceptions: claims that the voices have been imrpoving, no visual hallucinations. Though content/process: [place], poverty of content. More directable, improving Memory and concentration: alert and oriented x 3 Judgment and insight: chronically limited/impulsive, improving mildly PLAN: I am going to add Cogentin for the cramping. I'm not sure how much she understood about constipation and other side effects he will get a handout from the desk. -Patient is admitted under voluntary status to MHU for stabilization of psychiatric symptoms and safety. Patient has not signed adult voluntary form and medication consent and is placed in patient's chart -Medications : recieved Invega sustenna 234 mg IM loading dose on 03/11 for psychosis/mood stabilization, 2nd dose of 156 mg IM given 03/15. Despite the 2 doses of GARCIA invega patient is still now complaining of AH which are distressing to him. Haldol PO 5 mg bid for psychosis, trazodone 150 mg qhs when necessary for sleep, Zoloft 50 mg daily at bedtime for mood/anxiety -Ativan and Haldol PRN for agitation/aggression -NRT - nicotine patch - on board for discharge planning. Encourage patient to participate in groups to work on coping skills. patient deferred with his conversion man. patient apparently is not accepted at the group homes through [facility] due to apparent "lack of criteria". ROSANA, yanely and unit staff along with typewriter mechanic had a meeting to discuss placement. Family/relatives do not feel safe having patient at home due to his past issues. Rosi is communicating with the courts to file petition for help with placement of the patient from the coffee roaster however at this time it is not being heard in the courts. SW to communicate with yanely about importance of a PPO to help them keep safe once patient is discharged and if he tries to return back to the home of his grandparents. Will attempt to transition patient onto Haldol GARCIA next week and then likely proceed with discharge based on recommendations from [facility] and also from U[employer] Interaction Designer after hearing tuesday morning Objective - Vital Signs Vital signs: Vital Signs Temp 97.5 F L 03/18/23 06:44 Pulse 84 03/18/23 06:44 Resp 13 03/18/23 06:44 BP 103/57 03/18/23 06:44 Pulse Ox 99 03/09/23 04:53 FiO2 Intake & Output 03/18/23 03/19/23 03/19/23 18:59 06:59 18:59 Weight 57.4 kg - Labs CBC & Chem 7: 03/01/23 16:47 03/01/23 16:47 Labs: Abnormal Lab Results - Last 24 Hours (Table) 03/18/23 Range/Units 20:56 POC Glucose (mg/dL) 148 H (70-110) mg/dL
[2023-03-19] MEDS: SERTRALINE 50 MG TAB PO SCH (19:59)
[2023-03-19] MEDS: LORazepam 1 MG TAB PO PRN (20:55)
[2023-03-19] MEDS: MAG HYDROX/AL HYDROX/SIMETH 30 ML CUP PO PRN (20:55)
--- NOTE | 2023-03-20 08:41 | P.PN ---
Subjective Progress Note Date: 03/20/23 Principal diagnosis: IMPRESSIONS: Schizoaffective disorder Cannabis use disorder Nicotine dependence Patient was seen today in the office he is very hard of hearing. Patient states that he is continuing to improve. He thinks the medicine is helping him calm down but he also has been struggling with muscle cramps. His main complaint is that he had some heartburn which he doesn't normally and thinks the medicine might be doing. It could come either from the Haldol or the benztropine. He still had muscle cramps last night but had not just had the Cogentin so I don't think we want to increase it any. We may have to give up on the Haldol try something to an different side effects I will leave that to the regular team to decide as a Haldol does seem to be giving him some relief. He says he slept better He is not interested in going to many groups because he doesn't want to. He is denying any visual hallucinations, denying any suicidal or homicidal ideations intent or plan. Mental status examination: Reasonable eye contact General Appearance: Patient appears to be then, multiple tattoos, stated age is alert, cooperative today. Behavior: cooperative Speech: Patient's speech is fluent and nonpressured. [place]. Mood/Affect: Flat Suicidality/Homicidality: Denies Perceptions: claims that the voices have been imrpoving, no visual hallucinations. Though content/process: [place], poverty of content. Cooperative, improving Memory and concentration: alert and oriented x 3 Judgment and insight: chronically limited/impulsive, improving mildly PLAN: I am going to add Cogentin for the cramping. I'm not sure how much he understood about constipation and other side effects he will get a handout from the desk. -Patient is admitted under voluntary status to MHU for stabilization of psychiatric symptoms and safety. Patient has not signed adult voluntary form and medication consent and is placed in patient's chart -Medications : recieved Invega sustenna 234 mg IM loading dose on 03/11 for psychosis/mood stabilization, 2nd dose of 156 mg IM given 03/15. Despite the 2 doses of GARCIA invega patient is still now complaining of AH which are distressing to him. Haldol PO 5 mg bid for psychosis, trazodone 150 mg qhs when necessary for sleep, Zoloft 50 mg daily at bedtime for mood/anxiety -Ativan and Haldol PRN for agitation/aggression -NRT - nicotine patch -ROSANA on board for discharge planning. Encourage patient to participate in groups to work on coping skills. patient deferred with his corporate associate attorney. patient apparently is not accepted at the group homes through [facility] due to apparent "lack of criteria". ROSANA, yanely and unit staff along with commercial underwriter had a meeting to discuss placement. Family/relatives do not feel safe having patient at home due to his past issues. Rosi is communicating with the courts to file petition for help with placement of the patient from the powerhouse engineer however at this time it is not being heard in the courts. SW to communicate with yanely about importance of a PPO to help them keep safe once patient is discharged and if he tries to return back to the home of his grandparents. Will attempt to transition patient onto Haldol GARCIA next week and then likely proceed with discharge based on recommendations from [facility] and also from Hot Dimpling Machine Operator after hearing tuesday morning Objective - Vital Signs Vital signs: Vital Signs Temp 97.9 F 03/19/23 12:25 Pulse 123 H 03/19/23 12:25 Resp 20 03/19/23 12:25 BP 140/82 03/19/23 12:25 Pulse Ox 97 03/19/23 12:25 FiO2 - Labs CBC & Chem 7: 03/01/23 16:47 03/01/23 16:47
[2023-03-20] MEDS: NICOTINE 14MG/24HR PATCH TRANSDERM SCH (08:42)
[2023-03-20] MEDS: haloperidoL 5 MG TAB PO SCH ×2 (08:42→19:51)
[2023-03-20] MEDS: ALBUTEROL HFA INHALER INHALATION PRN ×3 (08:42→19:52)
[2023-03-20] MEDS: BENZTROPINE MESYLATE 0.5 MG TAB PO SCH ×2 (08:42→19:51)
[2023-03-20] MEDS: ACETAMINOPHEN TAB 325 MG TAB PO PRN (12:56)
[2023-03-20] MEDS: SERTRALINE 50 MG TAB PO SCH (19:51)
[2023-03-21] MEDS: traZODone HCL 50 MG TAB PO PRN (00:07)
[2023-03-21] MEDS: BENZTROPINE MESYLATE 0.5 MG TAB PO SCH ×2 (08:23→20:35)
[2023-03-21] MEDS: haloperidoL 5 MG TAB PO SCH ×2 (08:23→20:35)
[2023-03-21] MEDS: NICOTINE 14MG/24HR PATCH TRANSDERM SCH (08:23)
[2023-03-21] MEDS: ALBUTEROL HFA INHALER INHALATION PRN ×2 (08:26→12:23)
--- NOTE | 2023-03-21 11:48 | P.PN ---
Progress Note - Text Progress Note Date: 03/21/23 Interval history: Patient was seen today laying in his bed, patient was difficult to awaken today. Patient acknowledges bond writer however appeared to be due to sedated and tired and turned away. He did not appear interested in talking to bond writer today. He has been taking his medications as prescribed. Apparently has been sleeping the night and up for meals. Continues to not go to groups. Mental status examination: General Appearance: Patient appears to be then, multiple tattoos, stated age is lethargic, uncooperative today. Behavior: Patient is laying in his bed, uncooperative today Speech: Unable to assess Mood/Affect: Unable to assess Suicidality/Homicidality: Unable to assess Perceptions: Unable to assess Though content/process: Unable to assess Memory and concentration: Unable to assess Judgment and insight: chronically limited/impulsive, improving mildly IMPRESSIONS: Schizoaffective disorder Cannabis use disorder Nicotine dependence PLAN: -Patient is admitted under voluntary status to MHU for stabilization of psychiatric symptoms and safety. Patient has not signed adult voluntary form and medication consent and is placed in patient's chart -Medications : recieved Invega sustenna 234 mg IM loading dose on 03/11 for psychosis/mood stabilization, 2nd dose of 156 mg IM given 03/15. Despite the 2 doses of GARCIA invega patient is still now complaining of AH which are distressing to him. Haldol PO 5 mg bid for psychosis, trazodone 150 mg qhs when necessary for sleep, Zoloft 50 mg daily at bedtime for mood/anxiety -Ativan and Haldol PRN for agitation/aggression -NRT - nicotine patch -SW on board for discharge planning. Encourage patient to participate in groups to work on coping skills. patient deferred with his top trimmer. patient apparently is not accepted at the group homes through [facility] due to apparent "lack of criteria". ROSANA, yanely and unit staff along with bond writer had a meeting to discuss placement. Family/relatives do not feel safe having patient at home due to his past issues. Rosi is communicating with the courts to file petition for help with placement of the patient from the cashiers supervisor, hearing will take place on 03/21. Will attempt to transition patient onto Haldol GARCIA prior to d/c
[2023-03-21] MEDS: ACETAMINOPHEN TAB 325 MG TAB PO PRN (12:55)
[2023-03-21] MEDS: SERTRALINE 50 MG TAB PO SCH (20:35)
[2023-03-22] MEDS: NICOTINE 14MG/24HR PATCH TRANSDERM SCH (08:22)
[2023-03-22] MEDS: BENZTROPINE MESYLATE 0.5 MG TAB PO SCH ×2 (08:22→19:58)
[2023-03-22] MEDS: haloperidoL 5 MG TAB PO SCH (08:22)
[2023-03-22] MEDS: ALBUTEROL HFA INHALER INHALATION PRN ×3 (08:24→19:54)
--- NOTE | 2023-03-22 11:34 | P.PN ---
Progress Note - Text Progress Note Date: 03/22/23 Interval history: Patient was seen today laying in his bed. Patient was awoken by content writer today. Patient continues to be fairly sedated. He states that the medications I be too strong for him, we spoke about decreasing the Haldol. He continues to state that his mood and anxiety are fair. He is not going to groups. He claims that he was able to sleep throughout the night. He continues to ask about potential discharge and where she'll be going. We spoke about that he may be going to [place] which she is okay with. He is up for meals. He continues to be fairly concrete in his tone of voice. Patient denied any overnight complaints. he was concrete in his answers however more directable. He has not been engaging in any head banging or self-destructive behavior. he appears to be dressed more appropriately. He is denying any visual hallucinations, denying any suicidal or homicidal ideations intent or plan. Mental status examination: General Appearance: Patient appears to be then, multiple tattoos, stated age is alert, cooperative today. Behavior: Patient is laying in his bed, cooperative today Speech: Patient's speech is fluent and nonpressured. [place]. Mood/Affect: His mood is "fine" affect is constricted, improving mildly Suicidality/Homicidality: Denies Perceptions: denies any AH or VH Though content/process: [place], poverty of content. More directable, improving Memory and concentration: alert and oriented x 3 Judgment and insight: chronically limited/impulsive, improving mildly IMPRESSIONS: Schizoaffective disorder Cannabis use disorder Nicotine dependence PLAN: -Patient is admitted under voluntary status to MHU for stabilization of psychiatric symptoms and safety. Patient has not signed adult voluntary form and medication consent and is placed in patient's chart -Medications : recieved Invega sustenna 234 mg IM loading dose on 03/11 for psy chosis/mood stabilization, 2nd dose of 156 mg IM given 03/15. Despite the 2 doses of GARCIA invega patient is still now complaining of AH which are distressing to him, this is improving. Now switching to Haldol PO, decreased 3 mg bid for psychosis due to oversedation, trazodone 150 mg qhs when necessary for sleep, Zoloft 50 mg daily at bedtime for mood/anxiety. continue cogentin 0.5 mg bid for eps prophylaxis. -Ativan and Haldol PRN for agitation/aggression -NRT - nicotine patch -ROSANA on board for discharge planning. Encourage patient to participate in groups to work on coping skills. patient deferred with his cryptologic supervisor. patient apparently is not accepted at the group homes through [facility] due to apparent "lack of criteria". ROSANA, yanely and unit staff along with content writer had a meeting to discuss placement. Family/relatives do not feel safe having patient at home due to his past issues. Darshan is communicating with the courts to file petition for help with placement of the patient from the time clerk however at this time it is not being heard in the courts. SW to communicate with yanely about importance of a PPO to help them keep safe once patient is discharged and if he tries to return back to the home of his grandparents. Will attempt to transition patient onto Haldol GARCIA next week and then likely proceed with discharge based on recommendations from [facility] and also from Assembly Press Operator. SW to contact darshan to see about application to [facility].
[2023-03-22] MEDS: haloperidoL 1 MG TAB PO SCH (19:52)
[2023-03-22] MEDS: SERTRALINE 50 MG TAB PO SCH (19:53)
[2023-03-22] MEDS: traZODone HCL 50 MG TAB PO PRN (22:21)
[2023-03-22] MEDS: haloperidoL 5 MG TAB PO PRN (23:45)
[2023-03-23] MEDS: NICOTINE 14MG/24HR PATCH TRANSDERM SCH (08:43)
[2023-03-23] MEDS: BENZTROPINE MESYLATE 0.5 MG TAB PO SCH ×2 (08:44→19:37)
[2023-03-23] MEDS: haloperidoL 1 MG TAB PO SCH ×2 (08:44→19:37)
[2023-03-23] MEDS: ALBUTEROL HFA INHALER INHALATION PRN ×2 (08:45→19:39)
--- NOTE | 2023-03-23 10:12 | P.PN ---
Progress Note - Text Progress Note Date: 03/23/23 Interval history: Patient was seen today laying in his bed. Patient was awoken by song writer today and seen at the bedside. Patient claims that he still feeling fairly tired. He states that he is taking his medications and tolerated them well time. He states that he was able sleep poorly last night. Denies any changes in his appetite. He spoke briefly about discharge planning likely for the end of the week and he has more questions about [facility]. She denied any changes with his mood or anxiety today. He is up for meals, not attending groups. He continues to be fairly concrete in his tone of voice. Patient denied any overnight complaints. He is denying any visual hallucinations, denying any suicidal or homicidal ideations intent or plan. Mental status examination: General Appearance: Patient appears to be then, multiple tattoos, stated age is alert, cooperative today. Behavior: Patient is laying in his bed, cooperative today Speech: Patient's speech is fluent and nonpressured. [place]. Mood/Affect: His mood is "ok" affect is constricted, improving mildly Suicidality/Homicidality: Denies Perceptions: denies any AH or VH Though content/process: [place], poverty of content. More directable, improving Memory and concentration: alert and oriented x 3 Judgment and insight: chronically limited/impulsive, improving mildly IMPRESSIONS: Schizoaffective disorder Cannabis use disorder Nicotine dependence PLAN: -Patient is admitted under voluntary status to MHU for stabilization of psychiatric symptoms and safety. Patient has not signed adult voluntary form and medication consent and is placed in patient's chart -Medications : recieved Invega sustenna 234 mg IM loading dose on 03/11 for psychosis/mood stabilization, 2nd dose of 156 mg IM given 03/15. Despite the 2 doses of GARCIA invega patient is still now complaining of AH which are distressing to him, this is improving. Now switching to Haldol PO 3 mg bid for psychosis due to oversedation, trazodone 150 mg qhs when necessary for sleep, Zoloft 50 mg daily at bedtime for mood/anxiety. continue cogentin 0.5 mg bid for eps prophylaxis. -Ativan and Haldol PRN for agitation/aggression -NRT - nicotine patch -SW on board for discharge planning. Encourage patient to participate in groups to work on coping skills. patient deferred with his bleach plant operator. patient apparently is not accepted at the [facility] due to apparent "lack of criteria". ROSANA, yanely and unit staff along with song writer had a meeting to discuss placement. Family/relatives do not feel safe having patient at home due to his past issues. Rosi is communicating with the courts to file petition for help with placement of the patient from the quality consultant however at this time it is not being heard in the courts. SW to communicate with yanely about importance of a PPO to help them keep safe once patient is discharged and if he tries to return back to the home of his grandparents. Will attempt to transition patient onto Haldol GARCIA prior to d/c. Patient apparently got accepted to [facility] for temporary housing, likely discharge by the end of the week.
[2023-03-23] MEDS: SERTRALINE 50 MG TAB PO SCH (19:38)
[2023-03-23] MEDS: MAG HYDROX/AL HYDROX/SIMETH 30 ML CUP PO PRN (23:30)
[2023-03-24] MEDS: BENZTROPINE MESYLATE 0.5 MG TAB PO SCH ×2 (07:37→20:30)
[2023-03-24] MEDS: NICOTINE 14MG/24HR PATCH TRANSDERM SCH (07:37)
[2023-03-24] MEDS: haloperidoL 1 MG TAB PO SCH ×2 (07:37→20:30)
[2023-03-24] MEDS: ALBUTEROL HFA INHALER INHALATION PRN ×3 (07:39→20:32)
--- NOTE | 2023-03-24 11:07 | P.PN ---
Progress Note - Text Progress Note Date: 03/24/23 Interval history: Patient was seen today laying in his bed. Patient was awoken by casualty underwriter today and seen at the bedside. Patient claims that he still feeling more rested. He states that he is taking his medications and tolerated them well time. He states that he was able sleep well last night. Denies any changes in his appetite. He spoke briefly about discharge planning likely for Tuesday, and he has more questions about [facility]. She denied any changes with his mood or anxiety today. He is up for meals, not attending groups. He continues to be fairly concrete in his tone of voice. Patient denied any overnight complaints. He is denying any visual hallucinations, admits to AH of conversations with his familly, however, they are positive in nature. denying any suicidal or homicidal ideations intent or plan. Mental status examination: General Appearance: Patient appears to be then, multiple tattoos, stated age is alert, cooperative today. Behavior: Patient is laying in his bed, cooperative today Speech: Patient's speech is fluent and nonpressured. [place]. Mood/Affect: His mood is "ok" affect is constricted, improving mildly Suicidality/Homicidality: Denies Perceptions: positive for AH, denies any VH Though content/process: [place], poverty of content. More directable, improving Memory and concentration: alert and oriented x 3 Judgment and insight: chronically limited/impulsive, improving mildly IMPRESSIONS: Schizoaffective disorder Cannabis use disorder Nicotine dependence PLAN: -Patient is admitted under voluntary status to MHU for stabilization of psychiatric symptoms and safety. Patient has not signed adult voluntary form and medication consent and is placed in patient's chart -Medications : recieved Invega sustenna 234 mg IM loading dose on 03/11 for psychosis/mood stabilization, 2nd dose of 156 mg IM given 03/15. Despite the 2 doses of GARCIA invega patient is still now complaining of AH which are distressing to him, this is improving. Now switching to Haldol PO 3 mg bid for psychosis due to oversedation, will attempt to give HAldol GARCIA on tuesday prior to d/c, trazodone 150 mg qhs when necessary for sleep, Zoloft 50 mg daily at bedtime for mood/anxiety. continue cogentin 0.5 mg bid for eps prophylaxis. -Ativan and Haldol PRN for agitation/aggression -NRT - nicotine patch -SW on board for discharge planning. Encourage patient to participate in groups to work on coping skills. patient deferred with his civil attorney. Family/relatives do not feel safe having patient at home due to his past issues. SW to communicate with gaurdians about importance of a PPO to help them keep safe once patient is discharged and if he tries to return back to the home of his grandparents. Will attempt to transition patient onto Haldol GARCIA prior to d/c. [facility], likely discharge 03/28
[2023-03-24] MEDS: ACETAMINOPHEN TAB 325 MG TAB PO PRN (17:47)
[2023-03-24] MEDS: SERTRALINE 50 MG TAB PO SCH (20:30)
[2023-03-25] MEDS: BENZTROPINE MESYLATE 0.5 MG TAB PO SCH ×2 (08:17→19:48)
[2023-03-25] MEDS: NICOTINE 14MG/24HR PATCH TRANSDERM SCH (08:17)
[2023-03-25] MEDS: haloperidoL 1 MG TAB PO SCH ×2 (08:18→19:48)
[2023-03-25] MEDS: ALBUTEROL HFA INHALER INHALATION PRN ×3 (08:19→19:48)
--- NOTE | 2023-03-25 11:37 | P.PN ---
Progress Note - Text Progress Note Date: 03/25/23 Interval history: [facility] and agreeable to speak with specifications writer in the o ffice. Patient claims that he is feeling more rested. He states that he is taking his medications and tolerated them well time. He states that he was able sleep well last night. Denies any changes in his appetite. He spoke briefly about discharge planning likely for Tuesday, to the [facility]. He denied any changes with his mood or anxiety today. Claims that he is feeling 'good' He is up for meals, not attending groups. He continues to be fairly concrete in his tone of voice. Patient denied any overnight complaints. He is denying any visual hallucinations, denies AH. denying any suicidal or homicidal ideations intent or plan. Mental status examination: General Appearance: Patient appears to be then, multiple tattoos, stated age is alert, cooperative today. Behavior: Patient is cooperative today Speech: Patient's speech is fluent and nonpressured. [place].improving Mood/Affect: His mood is "ok" affect is constricted, improving Suicidality/Homicidality: Denies Perceptions: denies AH, denies any VH Though content/process: [place], poverty of content. More directable, improving Memory and concentration: alert and oriented x 3 Judgment and insight: chronically limited/impulsive, improving IMPRESSIONS: Schizoaffective disorder Cannabis use disorder Nicotine dependence PLAN: -Patient is admitted under voluntary status to [facility]HU for stabilization of psychiatric symptoms and safety. Patient has signed adult voluntary form and medication consent and is placed in patient's chart -Medications : recieved Invega sustenna 234 mg IM loading dose on 03/11 for psychosis/mood stabilization, 2nd dose of 156 mg IM given 03/15. Despite the 2 doses of GARCIA invega patient is still now complaining of AH which are distressing to him, this is improving. Now on Haldol PO 3 mg bid for psychosis, continue to monitor any eps side effects and sedation, will attempt to give HAldol GARCIA 100 mg IM on tuesday prior to d/c, trazodone 150 mg qhs when necessary for sleep, Zoloft 50 mg daily at bedtime for mood/anxiety. continue cogentin 0.5 mg bid for eps prophylaxis. -Ativan and Haldol PRN for agitation/aggression -NRT - nicotine patch -SW on board for discharge planning. Encourage patient to participate in groups to work on coping skills. patient deferred with his trade mark attorney. Family/relatives do not feel safe having patient at home due to his past issues. SW to communicate with gaurdians about importance of a PPO to help them keep safe once patient is discharged and if he tries to return back to the home of his grandparents. Will attempt to transition patient onto Haldol GARCIA prior to d/c on tuesday. Patient got accepted to [facility] for temporary housing, likely discharge 03/28
[2023-03-25] MEDS: LORazepam 1 MG TAB PO PRN (19:48)
[2023-03-25] MEDS: SERTRALINE 50 MG TAB PO SCH (19:48)
[2023-03-25] MEDS: traZODone HCL 50 MG TAB PO PRN (20:38)
[2023-03-25] MEDS: haloperidoL 5 MG TAB PO PRN (22:15)
[2023-03-26] MEDS: BENZTROPINE MESYLATE 0.5 MG TAB PO SCH ×2 (08:58→19:39)
[2023-03-26] MEDS: NICOTINE 14MG/24HR PATCH TRANSDERM SCH (08:58)
[2023-03-26] MEDS: haloperidoL 1 MG TAB PO SCH ×2 (08:58→19:39)
[2023-03-26] MEDS: ALBUTEROL HFA INHALER INHALATION PRN ×2 (11:26→19:40)
[2023-03-26] MEDS: SERTRALINE 50 MG TAB PO SCH (19:39)
[2023-03-26] MEDS: LORazepam 1 MG TAB PO PRN (19:42)
[2023-03-26] MEDS: MAG HYDROX/AL HYDROX/SIMETH 30 ML CUP PO PRN (19:54)
[2023-03-27 05:46] VITALS: BP 107/64; PULSE 94; RESP 16; TEMP 98.2
[2023-03-27] MEDS: NICOTINE 14MG/24HR PATCH TRANSDERM SCH (08:24)
[2023-03-27] MEDS: haloperidoL 1 MG TAB PO SCH ×2 (08:25→20:00)
[2023-03-27] MEDS: BENZTROPINE MESYLATE 0.5 MG TAB PO SCH ×2 (08:25→20:00)
[2023-03-27] MEDS: ALBUTEROL HFA INHALER INHALATION PRN ×2 (08:25→20:18)
--- NOTE | 2023-03-27 10:09 | P.PN ---
Progress Note - Text Progress Note Date: 03/26/23 Interval history: Patient was seen [wandering the hallways] and was directable and agreeable to speak with conventional underwriter. States that he is doing "good". At this time patient denies any suicidal or homicidal ideations intent or plan. Denies any Auditory or visual hallucinations. Patient denies any side effects from the medications and has been compliant with meds. Mental status exam: General Appearance: [Patient appears to be stated age is alert, directable, and cooperative.] Behavior: [No agitated behavior. Patient is calm and directable] Speech: Patient's speech is fluent and nonpressured. Mood/Affect: Mood is improving mildly, affect is congruent and constricted. Suicidality/Homicidality: Patient denies having any suicidal or homicidal ideation intent or plan. Perceptions: Patient denies any auditory or visual hallucinations. Though content/process: [There is no evidence of any delusional thought content and thought process is linear and goal-directed.] Memory and concentration: AOX3, grossly intact for the purposes of this session Judgment and insight: improving mildly Assessment/Plan: Continue with current diagnosis. Patient continues to meet criteria for inpatient psychiatric admission for symptom stabilization and safety.[Patient will be maintained on current psychotropic medication regimen.] Monitor for medication compliance and for any psychotropic medication side effects. Will continue to monitor ongoing response to treatment. Encouraged participation in milieu.
[2023-03-27] MEDS: BENZOCAINE/MENTHOL LOZENG 1 EACH LOZENGE MUCOUS MEM PRN ×2 (11:58→15:45)
[2023-03-27] MEDS: ACETAMINOPHEN TAB 325 MG TAB PO PRN (17:57)
[2023-03-27] MEDS: SERTRALINE 50 MG TAB PO SCH (20:00)
[2023-03-27] MEDS: LORazepam 1 MG TAB PO PRN (20:39)
[2023-03-28] MEDS: NICOTINE 14MG/24HR PATCH TRANSDERM SCH (07:49)
[2023-03-28] MEDS: BENZTROPINE MESYLATE 0.5 MG TAB PO SCH (07:49)
[2023-03-28] MEDS: haloperidoL 1 MG TAB PO SCH (07:49)
[2023-03-28] MEDS: ALBUTEROL HFA INHALER INHALATION PRN (07:50)
[2023-03-28] MEDS ORDERED: HALOPERIDOL DECANOATE 100 MG/ML 1 ML VIAL IM STA (09:54)
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
== END 2023-03-28 15:25 | disposition home or self-care (01) | DRG 750 ==
LOC: EEVIPCON 11:16 → EC 11:16 → 3MHU 03-07 14:11
PROVIDERS: ADMIT Psychiatry & Neurology Psychiatry; ATTEND Psychiatry & Neurology Psychiatry
DX: F25.9 Schizoaffective disorder, unspecified (principal); F17.210 Nicotine dependence, cigarettes, uncomplicated; F12.10 Cannabis abuse, uncomplicated; H91.93 Unspecified hearing loss, bilateral; R45.851 Suicidal ideations; F10.10 Alcohol abuse, uncomplicated; F41.9 Anxiety disorder, unspecified; W22.01XA Walked into wall, initial encounter; S00.83XA Contusion of other part of head, initial encounter; Z65.3 Problems related to other legal circumstances; Z71.41 Alcohol abuse counseling and surveillance of alcoholic; Z71.51 Drug abuse counseling and surveillance of drug abuser; Z71.9 Counseling, unspecified; Z71.3 Dietary counseling and surveillance; Z11.52 Encounter for screening for COVID-19; Z79.899 Other long term (current) drug therapy
CPT/HCPCS: 36415; 80048; 80061; 80306; 81003; 82075; 83036; 84443; 85025; 87635; 90686; 99285